=== PATIENT | male | born 1950 | race Caucasian/White ===

== ENCOUNTER 2019-08-11 17:20 | Inpatient (IN) | payer OTHER, SELFPAY ==
[2019-08-11] VITALS (15 sets, daily range): BP systolic 102–164; BP diastolic 68–99; PULSE 92–127; RESP 15–25; TEMP 36.4–36.7; O2SAT 93–98; BMI 22.6
--- NOTE | ~2019-08-11 | US_ITS ---
EXAMINATION: US right upper quadrant DATE: 08/12/2019 15:45 INDICATION: Upper abdominal pain, prior cholecystectomy, history of hepatitis C TECHNIQUE: Multiple grayscale and Doppler ultrasound images of the abdomen were obtained. COMPARISON: 03/12/2009 FINDINGS: The head and and body of the pancreas are normal. The pancreatic tail is obscured by bowel gas. The liver demonstrates mildly increased echotexture and echogenicity. No liver surface nodularit y is identified. Normal hepatopetal flow in the main portal vein. The gallbladder is surgically absen t. The normal common bile duct measures 4 mm. IMPRESSION: 1. No sonographic correlate for the patient's symptoms. 2. Sonographic findings consistent with history of hepatitis C. Reviewed, dictated and finalized at location A. T CLEANING MACHINE OPERATOR
--- NOTE | ~2019-08-11 | XR_ITS ---
EXAMINATION: XR chest 1V portable INDICATION: Shortness of breath TECHNIQUE: Portable AP chest at 1842 hours COMPARISON: 06/20/2019 FINDINGS: The lungs are hyperinflated. There is minimal airspace opacity overlying the right lung bas e. No pleural effusion or pneumothorax is identified. The cardiomediastinal silhouette is normal. IMPRESSION: 1. Minimal airspace opacity overlying the right lung base, consistent with atelectasis versus pneumon ia. Reviewed, dictated and finalized at location A. E ESCORT IMPRESSION: 1. Minimal airspace opacity overlying the right lung base, consistent with atel ectasis versus pneumonia.
--- NOTE | 2019-08-11 17:24 | ECG_ITS ---
Measurements Intervals [place] Rate: 110 P: 81 OK: 177 QRS: 83 QRSD: 90 T: 108 QT: 305 QTc: 413 Interpretive Statements SINUS TACHYCARDIA BASELINE ARTIFACT- I, II, III, AVR, AVL, AVF, V1-V6 ABNORMAL ECG Electronically Signed On 08-11-2019 19:43:25 FINISHING OPERATOR by Paramjit Mark D.O.
--- NOTE | 2019-08-11 17:33 | ED.SOB ---
HPI - SOB/Dyspnea General Chief Complaint: Shortness of Breath/Dyspnea Stated Complaint: sob Time Seen by Provider: 08/11/19 17:32 Source: patient and RN notes reviewed Mode of arrival: other Limitations: no limitations History of Present Illness HPI Narrative: Pt is a 69 y/o male who presents to the ED with c/o SOB that began two months ago, but has progressively worsened the past few weeks. Pt has a hx of COPD. He wears 3L of oxygen at home. Pt has Albuterol inhalers and nebulizer treatments at home. He notes that treatments help momentarily but does fully alleviate his sx. His last breathing treatment was at 1 PM today. Pt also reports intermittent dry cough and midsternal intermittent chest squeezing pain for the past few days. Pt's rolls mill operator is Dr. Zamora and Dr. Sousa. MD elicited complaint: shortness of breath Pertinent past history: COPD and diabetes Onset (ago): month(s) (2) Timing: constant Known history of: COPD and diabetes Associated symptoms: chest pain (intermittnet, midsternal, squeezing) and cough (dry) Treatment prior to arrival: none and other (breathing treatment at 1 PM) Related Data Home oxygen amount: 3 liters Home Medications Medication Instructions Recorded Confirmed finasteride 5 mg DAILY 07/23/19 07/23/19 fluticasone propion-salmeterol 232 puff INHALATION PRN 07/23/19 loratadine 10 mg PO DAILY 07/23/19 07/23/19 metformin 500 mg PO DAILY 07/23/19 07/23/19 mometasone-formoterol [Dulera] 200 INHALATION DAILY 07/23/19 nitrofurantoin monohyd/m-cryst 100 mg PO DAILY 07/23/19 07/23/19 Allergies Allergy/AdvReac Type Severity Reaction Status Date / Time tetracycline Allergy Unknown Verified 07/23/19 12:51 Review of Systems Review of Systems: All systems reviewed & are unremarkable except as noted in HPI and below Cardiovascular: Cardiovascular: Reports chest pain (intermittent midsternal, squeezing) Respiratory: Respiratory: Reports cough (dry) and Reports dyspnea PMFSH Past Medical History Medical History (Updated 08/11/19 @ 20:20 by Ignacia Arreguin MD) BPH (benign prostatic hyperplasia) COPD (chronic obstructive pulmonary disease) Diabetes mellitus, type II Emphysema lung Hepatitis C Hip fracture, right History of tobacco abuse Hx of skin malignancy removed on his nose Osteoarthritis Peptic ulcer disease Self-catheterizes urinary bladder Surgical History Surgical History (Updated 08/11/19 @ 18:30 by Clementina Ng) History of back surgery 1998 History of hip surgery right Hx of cholecystectomy Social History Social History Smoking status: Former smoker Gender identity (if verbalized by the patient): Male Exam Const: General: ill appearing other (mildly) Nutritional Appearance: well nourished Orientation/consciousness: patient oriented x3 Limitations: no limitations HENMT: Mouth: Yes lip normal Throat: other (throat normal) Resp: Effort & Inspection: pursed lip breathing, respiratory distress and tachypneic Auscultation: wheezes (tight) throughout and diminished lung sounds bilateral throughout Percussion: hyperresonance Cardio: Rate: tachycardic Rhythm: regular rhythm Heart sounds: Other heart sounds present (heart sounds distant) Peripheral pulses: dorsalis pedis present bilateral 2+ GI: GI Palp: Yes Soft to palpation and No Tenderness to palpation present (GI) Auscultation: normal bowel sounds Skin: General skin exam: normal color Neuro: General: patient oriented x3 Cognition (Neuro): normal cognition Speech: normal speech Extrem: General: normal to inspection, full ROM and no clubbing, cyanosis or edema Psych: Mental Status: mental status grossly normal Affect: normal affect Attitude: cooperative Course Course Emergency Course: Patient presents to the emergency department with complaint of worsening shortness of breath. Patient has history of oxygen dependent COPD. He also c
[2019-08-11 17:47] LABS: Basophils Absolute Auto 0.1 K/mm3 (0.0-0.1); Basophils Percent Auto 0.7 % (0.2-1.2); Eosinophils Absolute Auto 0.5 K/mm3 (0-0.3); Eosinophils Percent Auto 5.4 % (0-4.4); Hematocrit 45.7 % (42.0-52.0); Hemoglobin 14.3 g/dL (14.0-18.0); Immature Granulocyte Absolute 0.02 K/mm3 (0.00-0.031); Immature Granulocyte Percent A 0.2 % (0-0.5); Lymphocytes Absolute Auto 2.23 K/mm3 (0.9-3.2); Lymphocytes Percent Auto 25.8 % (18.3-44.2); Mean Corpuscular HGB Conc 31.3 g/dl (32-36); Mean Corpuscular Volume 89.4 fl (80-100); Monocytes Absolute Auto 0.9 K/mm3 (0.1-0.6); Monocytes Percent Auto 10.2 % (2.6-8.5); Neutrophils Percent Auto 57.7 % (45.5-73.1); Platelet Count Result 192 k/mm3 (150-375); Red Blood Count 5.11 M/mm3 (4.6-6.20); Red Cell Distribution Width 12.7 % (11.5-14.5); White Blood Count 8.6 K/mm3 (4.5-10.0)
[2019-08-11 17:59] LABS: Blood Urea Nitrogen 16 mg/dL (9-20); Calcium 8.9 mg/dL (8.4-10.2); Carbon Dioxide 37 mmol/L (22-30); Chloride 94 mmol/L (98-107); Estimated CRCL calculation 118 ml/min; Estimated Glomerular Filt Rate > 60; Glucose 149 mg/dL (75-110); Potassium 4.2 mmol/L (3.4-5.0); Sodium 137 mmol/L (137-145)
[2019-08-11] MEDS: ALBUTEROL SULFATE NEB 2.5 MG/0.5 ML INH 15 MG INHALATION (17:59)
[2019-08-11] MEDS: IPRATROPIUM BR 0.02% INH SOLN 0.5 MG/2.5 ML VIAL 1.5 MG INHALATION (17:59)
[2019-08-11 18:08] LABS: Prothrombin Time 12.4 Seconds (11.1-14.7)
[2019-08-11 18:09] LABS: Partial Thromboplastin Time 30.1 SECONDS (22.3-36.8)
[2019-08-11] MEDS: methylPREDNISolone SOD SUCC 125 MG VIAL IV PUSH (18:10)
[2019-08-11 18:28] LABS: Alveolar/Arterial O2 Gradient 56.6 mmHg; Base Excess ABG 7.4 mEq/l (+/-2.0); Carboxyhemoglobin 0.7 % THb (0-2.0); Fractional Inspired Oxygen 52 %; Methemoglobin ABG 0.3 %THb (0-1.5); Oxygen Content ABG 20.7 %vol (16.0-22.0); Oxygen Saturation ABG 99.4 % (95.0-100.0); PO2 ABG 227.8 mmHg (80.0-100.0); PO2 FiO2 Ratio Arterial Blood 4.38 %; Total Hemoglobin 14.7 g/dL (12.0-18.0); pH ABG 7.299 (7.350-7.450)
[2019-08-11 18:29] LABS: PCO2 ABG 77.1 mmHg (35.0-45.0); Site Drawn RIGHT BRACHIAL
[2019-08-11 18:30] LABS: Device OTHER DEVICE
[2019-08-11 18:37] LABS: NT Pro B Type Natriuretic Pept 45 PG/ML (5-100); Troponin I < 0.012 ng/mL (0.000-0.034)
--- NOTE | 2019-08-11 19:25 | PC.NURSE ---
assumed care of pt at this time. received report from malia zelaya.
[2019-08-11 21:20] LABS: Troponin I < 0.012 ng/mL (0.000-0.034)
--- NOTE | 2019-08-11 21:40 | ADMGEN ---
This patient, Alex Wallace, was admitted to IMU Room 207-01. Patient/family oriented to hospital policies and general routines including ID bracelet, bed and alarms, visiting hours, pain management, procedures, bathroom and other care routines, personal items, smoking policy, room service/diet, and visiting hours. Valuables list has been completed. Information on how to activate the Rapid Response Team has been discussed. Patient/Family are encouraged to report perceived risks to care and to ask questions if they do not understand what they are told or what they should do.
[2019-08-11] MEDS: methylPREDNISolone SOD SUCC 125 MG VIAL 60 MG IV PUSH (23:11)
--- NOTE | 2019-08-11 23:14 | PCRCNOTE ---
Window of time for administration has passed. See next scheduled administration.
--- NOTE | 2019-08-11 23:53 | PM.IMHP ---
H&P: HPI History of Present Illness Chief complaint: acute on chronic respiratory failure,copd exacerab Narrative: Alex Wallace is a 69 year old male admitted with SOB. Pt has history of Copd, BPH with intermittent urinary retention, DM, osteoporosis and chronic hepatic C. Pt uses nebulisers and oxygen 3 liters at home. Pt sees DR Zamora pulmology. Pt states for past few weeks has been increasingly sob using his nebulisers often without any relief. Pt has a dry cough denies any fever but does feel some mild chest discomfort like a squeezing sensation. Pt states he was also on a antibiotic for a UTI infection recently. Pt used to smoke in the past has a 30 pack year history. 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 ABG in ED shows ph 7.299, pco2 77.1 and po2 227. CXR shows Pneumonia. Pt currently on BIPAP and feels much better. Review of Systems Review of Systems: All systems reviewed & are unremarkable except as noted in HPI and below Constitutional: Constitutional: Reports fatigue, Reports lethargy and Reports malaise Cardiovascular: Cardiovascular: Reports dyspnea Comments: Squeezing chest pain/ chest discomfort Respiratory: Respiratory: Reports chest congestion, Reports cough, Reports dyspnea, Reports dyspnea on exertion and Reports wheezing Gastrointestinal: Gastrointestinal: Denies no additional gastrointestinal complaints Genitourinary: Genitourinary: Denies no additional male genitourinary complaints Musculoskeletal: Musculoskeletal: Denies no additional musculoskeletal complaints Neurologic: Denies system reviewed and no additional complaints, except as documented Psychiatric: Psychiatric: Denies no additional psychiatric complaints [facility] Past Medical History Medical History BPH (benign prostatic hyperplasia) COPD (chronic obstructive pulmonary disease) Diabetes mellitus, type II Emphysema lung Hepatitis C Hip fracture, right History of tobacco abuse Hx of skin malignancy removed on his nose Osteoarthritis Peptic ulcer disease Self-catheterizes urinary bladder Surgical History Surgical History History of back surgery 1998 History of hip surgery right Hx of cholecystectomy Family History Family History Sibling Carcinoma of colon Father Family history of lung cancer Mother Family history of emphysema Social History Social History Smoking packs per day: 1 Smoking cigarettes per day: 20.0 Smoking status: Former smoker Tobacco type: cigarettes Alcohol intake: never Substance use: never Gender identity (if verbalized by the patient): Male Spiritual care concerns: No Agree to blood products: Yes Meds Home Medications and Allergies Home Medications Medication Instructions Recorded Confirmed Type albuterol sulfate 2.5 mg INHALATION QID PRN #180 ml 07/04/19 08/11/19 Rx finasteride 5 mg DAILY 07/23/19 08/11/19 History loratadine 10 mg PO DAILY 07/23/19 08/11/19 History metformin 500 mg PO DAILY 07/23/19 08/11/19 History mometasone-formoterol [Dulera] 200 inh INHALATION DAILY 07/23/19 08/11/19 History albuterol sulfate 90 mcg/actuation 2 puff INHALATION Q4-6H PRN #8.5 gm 07/29/19 08/11/19 Rx aerosol inhaler magnesium hydroxide [Milk of 15 ml PO DAILY PRN 08/11/19 08/11/19 History Magnesia] pravastatin 20 mg PO DAILY 08/11/19 08/11/19 History tamsulosin 0.4 mg PO DAILY 08/11/19 08/11/19 History Allergies Allergy/AdvReac Type Severity Reaction Status Date / Time tetracycline Allergy Unknown Verified 07/23/19 12:51 Vital Signs Vital Signs - 24 hr 08/11/19 17:24 08/11/19 17:31 08/11/19 18:01 Temperature 36.4 C Pulse Rate 114 H 117 H 101 H Respiratory Rate 15 19 Blood Pressure 164/99 H
[2019-08-12] VITALS (22 sets, daily range): BP systolic 107–125; BP diastolic 57–89; PULSE 69–122; RESP 15–20; TEMP 36.6–36.9; O2SAT 92–99
[2019-08-12 00:15] LABS: Troponin I < 0.012 ng/mL (0.000-0.034)
[2019-08-12 00:54] LABS: Alveolar/Arterial O2 Gradient 80.2 mmHg; Base Excess ABG 6.5 mEq/l (+/-2.0); Fractional Inspired Oxygen 30 %; HCO3 ABG 33.4 mEq/l (22.0-26.0); Oxygen Content ABG 18.3 %vol (16.0-22.0); Oxygen Saturation ABG 92.3 % (95.0-100.0); Oxyhemoglobin 93.2 % THb (90.0-100.0); PCO2 ABG 57.6 mmHg (35.0-45.0); pH ABG 7.381 (7.350-7.450)
[2019-08-12 00:56] LABS: Device NON-INVASIVE VENT; Modified Allen's Test Pass; Site Drawn LEFT RADIAL
[2019-08-12 00:57] LABS: Non-Invasive Expiratory Pressure 5 CMH2O; Non-Invasive Inspiratory Pressure 15 CMH2O; Non-Invasive Vent Rate 10 /MIN
[2019-08-12] MEDS: ALBUTEROL SULFATE NEB 2.5 MG/0.5 ML INH 5 MG INHALATION ×4 (02:58→20:39)
[2019-08-12] MEDS: IPRATROPIUM BR 0.02% INH SOLN 0.5 MG/2.5 ML VIAL INHALATION ×4 (02:59→20:40)
[2019-08-12] MEDS: methylPREDNISolone SOD SUCC 125 MG VIAL 60 MG IV PUSH ×3 (05:30→21:00)
[2019-08-12 08:12] LABS: Base Excess ABG 5.8 mEq/l (+/-2.0); Fractional Inspired Oxygen 32 %; HCO3 ABG 32.1 mEq/l (22.0-26.0); Oxygen Content ABG 18.5 %vol (16.0-22.0); Oxygen Saturation ABG 92.9 % (95.0-100.0); Oxyhemoglobin 93.5 % THb (90.0-100.0); PCO2 ABG 53.3 mmHg (35.0-45.0); PO2 ABG 66.8 mmHg (80.0-100.0); PO2 FiO2 Ratio Arterial Blood 2.09 %; Total Hemoglobin 14.1 g/dL (12.0-18.0); pH ABG 7.398 (7.350-7.450)
[2019-08-12 08:13] LABS: Device NASAL CANNULA; Modified Allen's Test Pass; Site Drawn LEFT RADIAL
[2019-08-12] MEDS: FINASTERIDE 5 MG TABLET BY MOUTH (09:37)
[2019-08-12] MEDS: ENOXAPARIN 40 MG/0.4 ML SYRINGE SUB-Q (09:37)
[2019-08-12] MEDS: LORATADINE 10 MG TABLET PO (09:37)
[2019-08-12] MEDS: TAMSULOSIN HCL 0.4 MG CAPSULE PO (09:38)
[2019-08-12] MEDS: PRAVASTATIN SODIUM 20 MG TABLET PO (09:38)
[2019-08-12] MEDS: INSULIN ASPART (*BKC) 100 UNITS/ML SUB-Q ×2 (09:55→18:51)
[2019-08-12 10:40] LABS: Glucose Point of Care 298 (65-105)
[2019-08-12 14:51] LABS: Glucose Point of Care 183 (65-105)
[2019-08-12 14:51] LABS: Glucose Point of Care 227 (65-105)
[2019-08-12 17:22] LABS: Glucose Point of Care 259 (65-105)
[2019-08-12] MEDS: MAGNESIUM HYDROXIDE SUSP 30 ML UDC 15 ML PO (18:47)
[2019-08-12 20:35] LABS: Glucose Point of Care 292 (65-105)
--- NOTE | 2019-08-12 21:29 | PHAR ---
The patient's home med of AZO Cranberry verified. Unable to verify home meds of Probiotic and Vit D 50mcg due to no markings on capsules. Meds are in vitamin bottles.
--- NOTE | 2019-08-12 21:42 | PM.IMPN ---
Progress Note: A&P Assessment and Plan (1) Acute on chronic respiratory failure with hypoxia and hypercapnia: Code(s): J96.21 - Acute and chronic respiratory failure with hypoxia; J96.22 - Acute and chronic respiratory failure with hypercapnia Status: Acute Assessment and Plan: Pt uses 3 liters of oxygen and nebulisers at home, currently off BIPAP, rpt ABG tonite Continue albuterol and ipratropium breathing treatments and iv steroids, . (2) Community acquired pneumonia: Qualifiers: Laterality: right Lung location: lower lobe of lung Qualified Code(s): J18.9 - Pneumonia, unspecified organism Code(s): J18.9 - Pneumonia, unspecified organism Status: Acute Assessment and Plan: CXR shows pneumonia, pt started on IV rocephin and IV zithromax, BC are pending, pt does not have a productive cough so sputum cultures are not ordered. Wcc are nl. Chest pain appears pleuritic in nature resolved presently, troponin is negative, (3) COPD exacerbation: Code(s): J44.1 - Chronic obstructive pulmonary disease with (acute) exacerbation Status: Acute Assessment and Plan: Chronic history uses 3 liters of oxygen and nebulisers at home. No exacerbation in 3 years. (4) Diabetes mellitus, type II: Code(s): E11.9 - Type 2 diabetes mellitus without complications Status: Acute Assessment and Plan: Glucose is 149. Check Accuchecks, Correction with SSI, up today with steroids (5) BPH (benign prostatic hyperplasia): Code(s): N40.0 - Benign prostatic hyperplasia without lower urinary tract symptoms Status: Acute Assessment and Plan: Pt is on tamsulosin. (6) DVT prophylaxis: Code(s): Z29.9 - Encounter for prophylactic measures, unspecified Status: Acute Assessment and Plan: lovenox Subjective Date/time seen: 08/12/19 21:42 Interval history: date of visit 08/12. 69-year-old type 2 diabetic with COPD admitted with a COPD exacerbation and evidence of pneumonia on chest x-ray. Much better today and less short of breath. some discomfort on abdomen with movement Exam Narrative: Exam Narrative: blood pressure 120/62 pulse is 78 saturating 93% on 3 L nasal cannula afebrile pupils equal reactive to light lungs prolonged expiratory phase faint crackle left posterior base abdomen soft nontender bowel sounds normal active extremities without edema distal pulses 2 + neuro alert pleasant cooperative no focal deficits Objective Data Vital Signs Vital Signs: Vital Signs - 24 hr 08/11/19 21:53 08/11/19 23:54 08/12/19 00:00 Temperature 36.7 C Pulse Rate 98 92 95 Respiratory Rate 22 H 16 20 Blood Pressure 102/68 Pulse Oximetry 93 08/12/19 02:00 08/12/19 02:59 08/12/19 03:00 Temperature Pulse Rate 88 122 H 122 H Respiratory Rate 19 19 Blood Pressure Pulse Oximetry 95 08/12/19 03:10 08/12/19 04:00 08/12/19 06:00 Temperature 36.6 C Pulse Rate 103 H 83 87 Respiratory Rate 15 20 Blood Pressure 121/65 Pulse Oximetry 96 08/12/19 07:02 08/12/19 08:00 08/12/19 08:18 Temperature 36.6 C Pulse Rate 89 102 H 104 H Respiratory Rate 20 18 Blood Pressure 112/57 L Pulse Oximetry 97 08/12/19 08:28 08/12/19 10:00 08/12/19 12:00 Temperature 36.9 C Pulse Rate 107 H 97 107 H Respiratory Rate 18 Blood Pressure 107/89 Pulse Oximetry 99 08/12/19 14:00 08/12/19 14:31 08/12/19 14:42 Temperature Pulse Rate 71 101 H 103 H Respiratory Rate 18 18 Blood Pressure Pulse Oximetry 08/12/19 16:00 08/12/19 16:24 08/12/19 18:00 Temperature 36.7 C Pulse Rate 69 104 H 81 Respiratory Rate 18 Blood Pressure 119/62 Pulse Oximetry 92 08/12/19 20:00 08/12/19 20:40 08/12/19 20:51 Temperature 36.8 C Pulse Rate 99 89 93 Respiratory Rate 20 18 18 Blood Pressure 125/62 Pulse Oximetry 93 93 Intake/Output Intake/Output: Intake & Output 08/09/19 02/0
[2019-08-12] MEDS: INSULIN GLARGINE (*BKC) 100 UNITS/ML 10 UNITS SUB-Q (22:13)
[2019-08-13] VITALS (11 sets, daily range): BP systolic 102–125; BP diastolic 51–76; PULSE 78–99; RESP 16–20; TEMP 36.4–36.7; O2SAT 92–96
[2019-08-13] MEDS: ALBUTEROL SULFATE NEB 2.5 MG/0.5 ML INH 5 MG INHALATION ×4 (01:53→21:00)
[2019-08-13] MEDS: IPRATROPIUM BR 0.02% INH SOLN 0.5 MG/2.5 ML VIAL INHALATION ×4 (01:53→21:01)
[2019-08-13 05:13] LABS: Blood Urea Nitrogen 22 mg/dL (9-20); Calcium 9.1 mg/dL (8.4-10.2); Carbon Dioxide 34 mmol/L (22-30); Chloride 92 mmol/L (98-107); Estimated CRCL calculation 144 ml/min; Estimated Glomerular Filt Rate > 60; Glucose 202 mg/dL (75-110); Sodium 136 mmol/L (137-145)
[2019-08-13] MEDS: INSULIN ASPART (*BKC) 100 UNITS/ML SUB-Q ×3 (08:14→17:28)
[2019-08-13] MEDS: FINASTERIDE 5 MG TABLET BY MOUTH (08:15)
[2019-08-13] MEDS: PRAVASTATIN SODIUM 20 MG TABLET PO (08:15)
[2019-08-13] MEDS: LORATADINE 10 MG TABLET PO (08:15)
[2019-08-13] MEDS: TAMSULOSIN HCL 0.4 MG CAPSULE PO (08:15)
[2019-08-13] MEDS: ENOXAPARIN 40 MG/0.4 ML SYRINGE SUB-Q (08:15)
[2019-08-13 08:23] LABS: Glucose Point of Care 282 (65-105)
[2019-08-13] MEDS: predniSONE 20 MG TABLET 40 MG PO (09:35)
[2019-08-13 12:48] LABS: Glucose Point of Care 214 (65-105)
--- NOTE | 2019-08-13 17:00 | PM.IMPN ---
Progress Note: A&P Assessment and Plan (1) Acute on chronic respiratory failure with hypoxia and hypercapnia: Code(s): J96.21 - Acute and chronic respiratory failure with hypoxia; J96.22 - Acute and chronic respiratory failure with hypercapnia Status: Acute Assessment and Plan: Pt uses 3 liters of oxygen and nebulisers at home, currently off BIPAP, Continue albuterol and ipratropium breathing treatments and change to po steroids, . (2) Community acquired pneumonia: Qualifiers: Laterality: right Lung location: lower lobe of lung Qualified Code(s): J18.9 - Pneumonia, unspecified organism Code(s): J18.9 - Pneumonia, unspecified organism Status: Acute Assessment and Plan: CXR shows pneumonia, pt started on IV rocephin and IV zithromax, BC are negative, pt does not have a productive cough so sputum cultures are not ordered. Wcc are nl. Chest pain appears pleuritic in nature resolved presently, troponin is negative, (3) COPD exacerbation: Code(s): J44.1 - Chronic obstructive pulmonary disease with (acute) exacerbation Status: Acute Assessment and Plan: Chronic history uses 3 liters of oxygen and nebulisers at home. No exacerbation in 3 years. Updrafts, steroids, and antibiotics blood secondary to pneumonia (4) Diabetes mellitus, type II: Code(s): E11.9 - Type 2 diabetes mellitus without complications Status: Acute Assessment and Plan: Glucose is 2/2. Check Accuchecks, Correction with SSI, should improve with decreasing steroids (5) BPH (benign prostatic hyperplasia): Code(s): N40.0 - Benign prostatic hyperplasia without lower urinary tract symptoms Status: Acute Assessment and Plan: Pt is on tamsulosin. (6) DVT prophylaxis: Code(s): Z29.9 - Encounter for prophylactic measures, unspecified Status: Acute Assessment and Plan: lovenox Subjective Date/time seen: 08/13/19 17:00 Interval history: date of visit 08/13. 69-year-old type 2 diabetic with COPD admitted with a COPD exacerbation and evidence of pneumonia on chest x-ray. Much better each day and less short of breath. Exam Narrative: Exam Narrative: blood pressure 104/60 pulse is 90 saturating 93% on 3 L nasal cannula afebrile pupils equal reactive to light lungs prolonged expiratory phase faint crackle Right posterior base abdomen soft nontender bowel sounds normal active extremities without edema distal pulses 2 + neuro alert pleasant cooperative no focal deficits Objective Data Vital Signs Vital Signs: Vital Signs - 24 hr 08/12/19 18:00 08/12/19 20:00 08/12/19 20:40 Temperature 36.8 C Pulse Rate 81 99 89 Respiratory Rate 20 18 Blood Pressure 125/62 Pulse Oximetry 93 93 08/12/19 20:51 08/13/19 01:53 08/13/19 02:00 Temperature Pulse Rate 93 89 92 Respiratory Rate 18 16 18 Blood Pressure Pulse Oximetry 08/13/19 04:41 08/13/19 08:30 08/13/19 09:40 Temperature 36.7 C 36.4 C L Pulse Rate 78 95 90 Respiratory Rate 20 18 20 Blood Pressure 125/76 102/51 L Pulse Oximetry 96 93 92 08/13/19 09:49 08/13/19 12:30 08/13/19 14:37 Temperature 36.4 C Pulse Rate 93 99 88 Respiratory Rate 20 18 20 Blood Pressure 103/57 L Pulse Oximetry 93 Intake/Output Intake/Output: Intake & Output 08/10/19 08/11/19 08/12/19 08/13/19 23:59 23:59 23:59 23:59 Intake Total 250 1160 980 Output Total 1300 1450 Balance 250 -140 -470 Meds/Results Medications: Active Medications Generic Name Dose Route Start Last Admin Trade Name Freq PRN Reason Stop Dose Admin Albuterol 5 mg 08/11/19 20:00 08/13/19 14:36 Albuterol Sulf Neb 2.5mg/0.5ml INHALATION 5 mg Q6HRT [facility] Administration Dextrose 12.5 gm 08/12/19 00:26 Dextrose 50% Syringe IV PUSH PRN PRN Hypoglycemia Protocol Enoxaparin Sodium 40 mg 08/12/19 09:00 08/13/19 08:15 Lovenox SUB-Q 40 mg DAILY [facility]
[2019-08-13 17:14] LABS: Glucose Point of Care 233 (65-105)
[2019-08-13 21:11] LABS: Glucose Point of Care 286 (65-105)
[2019-08-13] MEDS: MAGNESIUM HYDROXIDE SUSP 30 ML UDC 15 ML PO (22:43)
[2019-08-14] MEDS: ALBUTEROL SULFATE NEB 2.5 MG/0.5 ML INH 5 MG INHALATION ×2 (03:06→08:45)
[2019-08-14] MEDS: IPRATROPIUM BR 0.02% INH SOLN 0.5 MG/2.5 ML VIAL INHALATION ×2 (03:06→08:45)
[2019-08-14 03:08] VITALS: PULSE 89; RESP 16
[2019-08-14 04:00] VITALS: BP 118/65; PULSE 92; RESP 20; TEMP 36.7; O2SAT 95
[2019-08-14 05:30] LABS: Blood Urea Nitrogen 21 mg/dL (9-20); Calcium 8.8 mg/dL (8.4-10.2); Carbon Dioxide 35 mmol/L (22-30); Chloride 95 mmol/L (98-107); Estimated CRCL calculation 144 ml/min; Estimated Glomerular Filt Rate > 60; Glucose 137 mg/dL (75-110); Potassium 3.6 mmol/L (3.4-5.0); Sodium 139 mmol/L (137-145)
[2019-08-14 08:27] VITALS: BP 112/70; PULSE 83; RESP 18; TEMP 35.8; O2SAT 98
[2019-08-14 08:45] VITALS: PULSE 88; RESP 16; O2SAT 93
[2019-08-14] MEDS: FINASTERIDE 5 MG TABLET BY MOUTH (08:45)
[2019-08-14] MEDS: TAMSULOSIN HCL 0.4 MG CAPSULE PO (08:45)
[2019-08-14] MEDS: PRAVASTATIN SODIUM 20 MG TABLET PO (08:45)
[2019-08-14] MEDS: LORATADINE 10 MG TABLET PO (08:46)
[2019-08-14] MEDS: ENOXAPARIN 40 MG/0.4 ML SYRINGE SUB-Q (08:46)
[2019-08-14 08:55] VITALS: PULSE 92; RESP 16
[2019-08-14] MEDS: predniSONE 20 MG TABLET PO (09:35)
[2019-08-14 12:20] LABS: Glucose Point of Care 185 (65-105)
--- NOTE | 2019-08-16 17:02 | PM.DS ---
DS: Diagnosis Admitting Diagnosis Admitting Diagnosis: Acute and chronic respiratory failure with hypoxia Discharge Diagnosis (1) Acute on chronic respiratory failure with hypoxia and hypercapnia: Code(s): J96.21 - Acute and chronic respiratory failure with hypoxia; J96.22 - Acute and chronic respiratory failure with hypercapnia Status: Acute Assessment and Plan: Pt uses 3 liters of oxygen and nebulisers at home, , continued to improve with the above treatment of corticosteroids antibiotics. Pneumonia thought to be the precipitating factor (2) Community acquired pneumonia: Qualifiers: Laterality: right Lung location: lower lobe of lung Qualified Code(s): J18.9 - Pneumonia, unspecified organism Code(s): J18.9 - Pneumonia, unspecified organism Status: Acute Assessment and Plan: CXR shows pneumonia right lower lobe, pt is treated with IV rocephin and IV zithromax and discharge home on levofloxacin 500 daily for 3 days for total of 7 days treatment, BC were negative, pt did not have a productive cough so sputum cultures were not ordered. Wbc were nl. Chest pain was pleuritic in nature resolved , troponin were negative, (3) COPD exacerbation: Code(s): J44.1 - Chronic obstructive pulmonary disease with (acute) exacerbation Status: Acute Assessment and Plan: Chronic history uses 3 liters of oxygen and nebulisers at home. No exacerbation in 3 years. Updrafts, steroids, and antibiotics all secondary to pneumonia Rapid prednisone taper and none on discharge (4) Diabetes mellitus, type II: Code(s): E11.9 - Type 2 diabetes mellitus without complications Status: Acute Assessment and Plan: . , Correction with SSI while here, off steroids at discharge and resume his metformin (5) BPH (benign prostatic hyperplasia): Code(s): N40.0 - Benign prostatic hyperplasia without lower urinary tract symptoms Status: Acute Assessment and Plan: Pt is on tamsulosin. DS: Summary Time Spent with Patient Time attestation: Total time spent providing and/or coordinating discharge services: 35 minutes Exam Narrative: Exam Narrative: Condition on discharge Blood pressure 112/70 pulse is 82 saturating 94% on 3 L nasal cannula Lungs prolonged expiratory phase no wheezing and hear no crackles day of discharge in right lower lobe CV regular rate rhythm Extremities without edema He was ambulating without assistance taking a diet well and feeling much better DS: Data Data Completed and Pending Labs on day of discharge: Preliminary micro results at discharge 08/11/19 19:44 Blood Culture - Preliminary Blood 08/11/19 19:44 Blood Culture - Preliminary Blood Discharge Plan Discharge Attending physician on discharge: Julio Hoskins Discharging Clinician: Julio Hoskins Patient Disposition: Home, Self-Care Activity: as tolerated Diet: diabetic and low cholesterol Patient Instructions: Antibiotic Form, Using Oxygen at Home (DC), COPD (Chronic Obstructive Pulmonary Disease) (DC), Chronic Respiratory Failure (DC) Stand Alone Forms: General Discharge Information Follow-up/Referrals: Sanaz Zamora MD [Physician] - 2 Weeks [place]annon,Jarret Anderson MD [Primary Care Provider] - 3 Weeks Discharge Medications: New levofloxacin [Levaquin] 500 mg tablet 500 mg PO DAILY Qty: 3 RF: 0 Continued metformin 500 mg tablet 500 mg PO DAILY RF: 0 finasteride 5 mg tablet 5 mg DAILY RF: 0 loratadine 10 mg tablet 10 mg PO DAILY RF: 0 Dulera 200-5 mcg/actuation HFA aerosol inhaler 200 inh INHALATION DAILY RF: 0 magnesium hydroxide [Milk of Magnesia] 400 mg/5 mL Suspension 15 ml PO DAILY PRN (Reason: Constipation) RF: 0 tamsulosin 0.4 mg Capsule 0.4 mg PO DAILY RF: 0 pravastatin 20 mg Tablet 20 mg PO DAILY RF: 0 cholecalciferol (vitamin D3) [Vitamin D3] 50 mcg (2,000 unit) Tablet
== END 2019-08-14 14:02 | disposition home or self-care (01) | DRG 139 ==
LOC: ANHED 20:20 → ANHIMU 08-12 11:57
PROVIDERS: Emergency Medicine; Family Medicine; Admitting Provider Internal Medicine; Emergency Provider Emergency Medicine; PCP Family Medicine; Visit Provider Internal Medicine
DX: J18.9 Pneumonia, unspecified organism (principal); J96.21 Acute and chronic respiratory failure with hypoxia; J96.22 Acute and chronic respiratory failure with hypercapnia; J43.9 Emphysema, unspecified; E11.9 Type 2 diabetes mellitus without complications; N40.1 Benign prostatic hyperplasia with lower urinary tract symptoms; R33.9 Retention of urine, unspecified; M19.90 Unspecified osteoarthritis, unspecified site; Z99.81 Dependence on supplemental oxygen; Z87.11 Personal history of peptic ulcer disease; Z85.828 Personal history of other malignant neoplasm of skin; Z87.891 Personal history of nicotine dependence; Z86.19 Personal history of other infectious and parasitic diseases; Z90.49 Acquired absence of other specified parts of digestive tract
CPT/HCPCS: 36415; 36600; 71045; 76705; 80048; 82375; 82805; 83050; 83880; 84484; 85025; 85610; 85730; 87040; 87804; 93005; 94002; 94640; 94660; 96365; 96367; 96375; 97110; 97116; 97161; 97165; 99291; A9270; J0456; J0696; J1650; J1815; J2930; J7512

== ENCOUNTER 2019-12-24 12:06 | Emergency (ER) | payer OTHER, SELFPAY ==
[2019-12-24 12:19] VITALS: BP 125/82; PULSE 109; RESP 20; TEMP 36.2; O2SAT 95
--- NOTE | 2019-12-24 12:21 | ED.GENADULT ---
HPI - General Adult General Chief complaint: Urogenital-Male Stated complaint: possible uti Source: patient and RN notes reviewed Mode of arrival: wheelchair Limitations: no limitations History of Present Illness HPI narrative: This is a 69 years old male presented office for evaluation of possible UTI. He is self caths due to BPH. A month ago he began with urinary pain every time he self cath and he finally made himself coming in. Symptom is reminiscent his previous UTI minus the fever. He self caths about twice a day. 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 Related Data Home Medications Medication Instructions Recorded Confirmed albuterol sulfate 0.63 mg INHALATION QID 12/24/19 12/24/19 albuterol sulfate 1 inh INHALATION QID 12/24/19 12/24/19 finasteride 5 mg PO DAILY 12/24/19 12/24/19 fluticasone propionate [Flonase 1 spray INTRANASAL DAILY 12/24/19 12/24/19 Allergy Relief] ipratropium-albuterol 3 ml INHALATION QID 12/24/19 12/24/19 loratadine [Claritin] 10 mg PO DAILY 12/24/19 12/24/19 metformin [Glucophage] 500 mg PO BID 12/24/19 12/24/19 rosuvastatin [Crestor] 5 mg PO DAILY 12/24/19 12/24/19 tamsulosin [Flomax] 0.4 mg PO DAILY 12/24/19 12/24/19 Allergies Allergy/AdvReac Type Severity Reaction Status Date / Time tetracycline Allergy Unknown Unknown Verified 12/24/19 12:34 Review of Systems Review of Systems: Narrative: CONSTITUTIONAL: Denies fever or feeling ill CARDIOVASCULAR: Denies chest pain, palpitation RESPIRATORY: Reports chronic dyspnea and oxygen depends GASTROINTESTINAL: Denies abdominal pain, nausea, vomiting GENITOURINARY: Denies penile discharge SKIN: Denies rash MUSCULOSKELETAL: Denies acute joints pain NEUROLOGIC: Denies lightheaded/dizziness All other systems reviewed are negative, except as documented in HPI. REPLACED BY [facility] Past Medical History Medical History (Updated 12/24/19 @ 12:43 by TOM Rodriguez) Body mass index (bmi) 25.0-25.9, adult (02/13/18) BPH (benign prostatic hyperplasia) Chronic respiratory failure COPD (chronic obstructive pulmonary disease) Diabetes mellitus, type II Emphysema lung Hepatitis C Hip fracture, right History of tobacco abuse Hx of skin malignancy removed on his nose Nocturnal hypoxemia Osteoarthritis Peptic ulcer disease Self-catheterizes urinary bladder Surgical History Surgical History History of back surgery 1998 History of hip surgery right Hx of cholecystectomy Social History Social History (Updated 08/29/19 @ 11:05 by Tyler Corey [facility]) Smoking packs per day: 1 Smoking cigarettes per day: 20.0 Years smoked: 30 Smoking pack-years: 30.00 Smoking status: Former smoker Tobacco type: cigarettes Alcohol intake: never Substance use: never Gender identity (if verbalized by the patient): Male Spiritual care concerns: No Agree to blood products: Yes Exam Narrative: Exam Narrative: GENERAL: This is a well-developed patient, chronically ill, in no apparent distress. NOSE: External nose normal with no obvious nasal discharge, nasal cannula noted CARDIOVASCULAR: Regular rate and rhythm without murmurs, gallops, or rubs. RESPIRATORY: Clear to auscultation. Breath sounds equal bilaterally. No wheezes, rales, or rhonchi. GASTROINTESTINAL: Abdomen soft, non-tender, nondistended. Bowel sounds are active. No hepato-splenomegaly, or palpable masses. No guarding. SKIN: warm, intact with no suspicious lesions or rash, good texture and turgor. NEURO: awake, alert, and oriented to person, place and time. There were no obvious focal neurologic abnormalities. Steady gait [place] Coma Scale Eye Opening: Spontaneous 4 [place] Coma Scale Motor: Obeys Commands 6 [place] Coma Scale Verbal: Oriented 5 Medical Decision Making MDM Narrative Medical decision making narrative: Since urine dipstick appears clean without obvious sign of infection; I given patient the op
== END 2019-12-24 12:45 | disposition home or self-care (01) ==
PROVIDERS: Emergency Provider Nurse Practitioner
DX: N40.1 Benign prostatic hyperplasia with lower urinary tract symptoms (principal); R39.15 Urgency of urination; J43.9 Emphysema, unspecified; Z87.891 Personal history of nicotine dependence; Z99.81 Dependence on supplemental oxygen; J96.10 Chronic respiratory failure, unspecified whether with hypoxia or hypercapnia; E11.9 Type 2 diabetes mellitus without complications; Z85.828 Personal history of other malignant neoplasm of skin; M19.90 Unspecified osteoarthritis, unspecified site; Z87.11 Personal history of peptic ulcer disease; Z79.84 Long term (current) use of oral hypoglycemic drugs
CPT/HCPCS: 81003; 87077; 87086; 87088; 87186; 99213; G0463

== ENCOUNTER 2020-12-17 17:06 | IRF | payer OTHER, SELFPAY ==
[2020-12-17 17:08] LABS: Glucose Point of Care 145 mg/dl (65-105)
--- NOTE | 2020-12-17 17:10 | ADMGEN ---
Patient arrived via personal vehicle with oxygen in place at 1600. This patient, Alex Wallace, was admitted to [facility] Room 226-02. Patient/family oriented to hospital policies and general routines including ID bracelet, bed and alarms, visiting hours, pain management, procedures, bathroom and other care routines, personal items, smoking policy, room service/diet, and visiting hours. Information on how to activate the Rapid Response Team has been discussed. Patient/Family are encouraged to report perceived risks to care and to ask questions if they do not understand what they are told or what they should do.
--- NOTE | 2020-12-17 17:22 | WPDREHABHP ---
H&P: HPI History of Present Illness Date/Time: 12/17/20 17:22 Chief Complaint: Left hip fracture Narrative: HISTORY OF PRESENT ILLNESS: The patient's primary rehab impairment category is 0 7 orthopedic lower extremity fracture The etiologic diagnosis is transverse angulated and displaced subcapital left femoral neck fracture I saw this patient [id number] on 12/17/2020 The patient is a 70-year-old male that presented to [facility] on 12/09/2020 after experiencing a ground level fall. Past medical history significant for BPH, COPD, type 2 diabetes, GERD, hepatitis C, hypotonic bladder, chronic respiratory failure with home O2 use, history of prolonged prostatitis. Patient reports his walking out of his nieces and tripped over a rug and fell landing on his left hip. Patient did not strike his head. Imaging in the ER revealed transverse angulated and displaced subcapital left femoral neck fracture. EKG showed normal sinus rhythm. Orthopedic surgery was consulted and patient underwent a left hemiarthroplasty by Dr. Michael lilly on 12/11/2020. He is weight-bearing as tolerated. He has left anterior hip precautions. Postoperatively patient experienced acute postop pain, acute blood loss anemia, increasing need of inhalers, congestion, hyponatremia, and new onset serosanguineous drainage. Patient was given IV Rocephin for the drainage and now switched over to p.o. Cefdinir 300 mg b.i.d. times 10 days. Patient is to stop taking on 12/27/2020. Postop pain is being treated with oral analgesics, his anemia is stable. patient is able to cath himself independently. Patient remains on home O2 patient requires 3 L of O2 during the daytime and 2 L at night. Patient requires Mucinex for congestion with favorable results. Hyponatremia is being repleted. Patient will be will be continuing on Lovenox for DVT prophylaxis for at least 21 days. COVID the patient has not traveled nor has anyone who has had contact with him to any COVID hot spots. Patient S not having close personal contact with anyone with COVID. Patient does not have a fever. Patient does experience respiratory illness which is chronic. A COVID test was done and was negative on 12/17/2020. Therapy was initiated at the acute care facility and the patient transferred to us from [facility] on 12/17/2020 FALLS OR SURGERIES: the patient has had major surgery last 100 days consisting of a left total hip replacement. Patient has had falls in the past with injury. PRIOR LEVEL OF FUNCTION: Eating was [INDEPENDENT] Oral Care was [INDEPENDENT] Toileting Hygiene was [INDEPENDENT] Shower/Bathing was [INDEPENDENT] Upper Body Dressing was [INDEPENDENT] Lower Body Dressing was [INDEPENDENT] Donning/[place] Footwear was [INDEPENDENT] Rolling Left and Right was [INDEPENDENT] Sit to Lying was [INDEPENDENT] Lying to Sitting was [INDEPENDENT] Sit to Stand was [INDEPENDENT] Bed to Chair Transfers was [INDEPENDENT] Toilet Transfers was [INDEPENDENT] Walking was [INDEPENDENT] [>500 feet] with [NO DEVICE] Wheelchair Mobility was [NOT APPLICABLE PRIOR TO ADMISSION] Stairs were [INDEPENDENT] CURRENT LEVEL OF FUNCTION: Eating was [SET UP ONLY] Oral Care was Supervision Toileting Hygiene was substantial to max assist Shower/Bathing was substantial to max assist Upper Body Dressing was supervision Lower Body Dressing was partial are mod assist Donning/[place] Footwear was substantial to max assist Rolling Left and Right was partial to moderate assist Sit to Lying was partial to mod assist Lying to Sitting was partial to mod assist Sit to Stand was partial to mod assist Bed to Chair Transfers were partial to mod assist Toilet Transfers were partial to mod assist Walking was 30 ft with partial to moderate assistance using a roller walker. Wheelchair Mobility was Not tested Stairs were not tested GOALS: Our therapists will evaluate the pa
[2020-12-17 18:26] VITALS: O2SAT 95
[2020-12-17] MEDS: oxyCODONE/ACETAMINOPHEN (*CRX) 5-325 MG TABLET 2 TABLET PO (20:07)
[2020-12-17] MEDS: ROSUVASTATIN 5 MG TABLET PO (20:08)
[2020-12-17] MEDS: CEFDINIR 300 MG CAPSULE PO (20:08)
[2020-12-17 21:01] VITALS: O2SAT 96
[2020-12-17 22:00] VITALS: BP 117/62; PULSE 101; RESP 18; TEMP 37.1; O2SAT 90
[2020-12-18] MEDS: oxyCODONE/ACETAMINOPHEN (*CRX) 5-325 MG TABLET 2 TABLET PO ×5 (01:03→23:45)
[2020-12-18 05:24] LABS: Basophils Absolute Auto 0.1 K/mm3 (0.0-0.1); Basophils Percent Auto 0.6 % (0.2-1.2); Eosinophils Absolute Auto 0.3 K/mm3 (0-0.3); Eosinophils Percent Auto 3.8 % (0-4.4); Hematocrit 31.1 % (42.0-52.0); Immature Granulocyte Absolute 0.09 K/mm3 (0.00-0.031); Immature Granulocyte Percent A 1.1 % (0-0.5); Lymphocytes Absolute Auto 1.08 K/mm3 (0.9-3.2); Lymphocytes Percent Auto 13.3 % (18.3-44.2); Mean Corpuscular HGB Conc 32.2 g/dl (32-36); Mean Corpuscular Hemoglobin 29.1 pg (26-34); Mean Corpuscular Volume 90.4 fl (80-100); Mean Platelet Volume 9.3 fl (7.4-10.4); Monocytes Absolute Auto 1.1 K/mm3 (0.1-0.6); Monocytes Percent Auto 12.9 % (2.6-8.5); Neutrophils Absolute Auto 5.5 K/mm3 (1.3-6.7); Neutrophils Percent Auto 68.3 % (45.5-73.1); Platelet Count Result 223 k/mm3 (150-375); Red Blood Count 3.44 M/mm3 (4.6-6.20); Red Cell Distribution Width 13.1 % (11.5-14.5); White Blood Count 8.1 K/mm3 (4.5-10.0)
[2020-12-18 05:30] LABS: Hemoglobin A1C 6.1 % (<5.7)
[2020-12-18 05:44] LABS: Alanine Aminotransferase 49 U/L (4-50); Albumin Level 2.8 g/dL (3.5-5.1); Alkaline Phosphatase 70 U/L (38-126); Anion Gap 4 mmol/L (8-16); Aspartate Amino Transferase 49 U/L (17-59); Bilirubin,Total 0.4 mg/dL (0.2-1.3); Blood Urea Nitrogen 12 mg/dL (9-20); Calcium 8.4 mg/dL (8.4-10.2); Carbon Dioxide 34 mmol/L (22-30); Chloride 99 mmol/L (98-107); Estimated Glomerular Filt Rate > 60; Glucose 155 mg/dL (75-110); Sodium 137 mmol/L (137-145)
[2020-12-18 05:46] VITALS: BP 109/71; PULSE 93; RESP 16; TEMP 36.3; O2SAT 95
[2020-12-18 08:00] VITALS: PULSE 93; RESP 16; O2SAT 95
--- NOTE | 2020-12-18 08:24 | WPDNEURORHBP ---
Subjective Date/time seen: 12/18/20 08:24 Interval history: The etiologic diagnosis is transverse angulated and displaced subcapital left femoral neck fracture. The patient is a 70-year-old male that presented to [facility] on 12/09/2020 after experiencing a ground level fall. Past medical history significant for BPH, COPD, type 2 diabetes, GERD, hepatitis C, hypotonic bladder, chronic respiratory failure with home O2 use, history of prolonged prostatitis. Patient reports his walking out of his nieces and tripped over a rug and fell landing on his left hip. Patient did not strike his head. Imaging in the ER revealed transverse angulated and displaced subcapital left femoral neck fracture. EKG showed normal sinus rhythm. Orthopedic surgery was consulted and patient underwent a left hemiarthroplasty by Dr. Goodson on 12/11/2020. He is weight-bearing as tolerated. He has left anterior hip precautions. Postoperatively patient experienced acute postop pain, acute blood loss anemia, increasing need of inhalers, congestion, hyponatremia, and new onset serosanguineous drainage. Patient was given IV Rocephin for the drainage and now switched over to p.o. Cefdinir 300 mg b.i.d. times 10 days. Patient is to stop taking on 12/27/2020. Postop pain is being treated with oral analgesics, his anemia is stable. patient is able to cath himself independently. Patient remains on home O2 patient requires 3 L of O2 during the daytime and 2 L at night. Patient requires Mucinex for congestion with favorable results. Hyponatremia is being repleted. Patient will be will be continuing on Lovenox for DVT prophylaxis for at least 21 days. 12/18/2020. patient admits to chronic constipation and has not had a bowel movement in a few days. Patient will be offered Dulcolax suppository and enema. Aggressive bowel program will begin. Patient admits to discomfort of the left hip. Mucinex was not present on transfer medications will add to current med list. Review of Systems Constitutional: Constitutional: Reports no additional constitutional complaints Cardiovascular: Cardiovascular: Reports no additional cardiovascular complaints, Reports dyspnea and Reports dyspnea on exertion Respiratory: Respiratory: Reports chest congestion, Reports cough, Reports dyspnea and Reports dyspnea on exertion Gastrointestinal: Gastrointestinal: Reports constipation (chronic) Exam Narrative: Exam Narrative: Head is normocephalic. Extraocular muscles are intact. Pupils are equal reactive light and accommodation. Speech is fluent. Neck is supple. Heart rate and rhythm is regular. Lungs sounds are congested and decreased in the bases. Abdomen is obese with positive bowel sounds. Bruising is noted to the stomach from injection sites. Left hip incision shows serous drainage. Drainage is more clear and less in volume. Bilateral upper extremity strength are 4-5 left lower extremity strength is essentially 2/5 and distally 3/5 right lower extremity strength is 4- out of 5 Objective Data Vital Signs Vital Signs: Vital Signs - 24 hr 12/17/20 18:26 12/17/20 21:01 12/17/20 22:00 Temperature 37.1 C Pulse Rate 101 H Respiratory Rate 18 Blood Pressure 117/62 Pulse Oximetry 95 96 90 12/18/20 05:46 Temperature 36.3 C L Pulse Rate 93 Respiratory Rate 16 Blood Pressure 109/71 Pulse Oximetry 95 Intake/Output Intake/Output: Intake & Output 12/15/20 12/16/20 12/17/20 12/18/20 23:59 23:59 23:59 23:59 Intake Total 480 Balance 480 Meds/Results Medications: Active Medications Generic Name Dose Route Start Last Admin Trade Name Freq PRN Reason Stop Dose Admin Albuterol 2.5 mg 12/17/20 17:49 Albuterol Sulfate Neb 2.5 Mg/0.5 Ml Inh INHALATION Q4H PRN shortness of breath or wheezing Albuterol 1 puff 12/17/20 17:42 Albuterol Sulfate (*Sp) Aerosol 1 Puff INHALATION Q4-6H PRN shortness of b
[2020-12-18] MEDS: metFORMIN HCL 500 MG TABLET PO ×2 (09:43→16:51)
[2020-12-18] MEDS: CEFDINIR 300 MG CAPSULE PO ×2 (09:43→20:14)
[2020-12-18] MEDS: FINASTERIDE 5 MG TABLET PO (09:43)
[2020-12-18] MEDS: ASPIRIN 81 MG ENTERIC TABLET PO (09:43)
[2020-12-18] MEDS: LORATADINE 10 MG TABLET PO (09:43)
[2020-12-18] MEDS: TAMSULOSIN HCL 0.4 MG CAPSULE PO (09:43)
[2020-12-18] MEDS: ENOXAPARIN 40 MG/0.4 ML SYRINGE SUB-Q (09:43)
[2020-12-18] MEDS: FLUTICASONE PROPIONATE 0.05% NA SPR 16 GM BTL (*BKC) 1 SPRAY NASAL ×2 (11:24→20:14)
[2020-12-18] MEDS: guaiFENesin 12 HR 600 MG TABCR 1200 MG PO ×2 (11:25→20:14)
[2020-12-18] MEDS: MAGNESIUM HYDROXIDE SUSP 30 ML UDC 15 ML PO (11:26)
[2020-12-18 11:49] LABS: Glucose Point of Care 175 mg/dl (65-105)
[2020-12-18 11:49] LABS: Glucose Point of Care 160 mg/dl (65-105)
[2020-12-18] MEDS: BISACODYL 10 MG SUPPOSITORY RECTAL ×2 (12:11→14:03)
[2020-12-18 14:00] VITALS: BP 114/62; PULSE 102; RESP 16; TEMP 36.2; O2SAT 96
--- NOTE | 2020-12-18 14:59 | PM.IMHP ---
H&P: HPI History of Present Illness Date/Time: 12/18/20 14:59 Chief Complaint: Rehab and COPD Narrative: Patient is a 70 year old male with a past medical history of BPH, Hep C, COPD, DM2, Hypotonic bladder, chronic respiratory failure with home O2 that was sent to the rehab facility for rehab after fracturing his left femoral neck. Patient stated that this happened about a week or so ago and that his hip was repaired last Sunday at [facility] [place]. He did say that he was feeling ok today, but all in all not the best. He said that today is the first day that everything is starting and that he knows he is going to have some aches and pains. He also mentioned that he is worried about his COPD and that he wears 3LNC with activity and and 2L at night. While at rest he does not wear anything. He is also concerned about the medications that he is taking along with the interaction of them together. He is currently sitting in the wheel chair, awaiting someone to bring him a suppository. He said that he knows he is constipated because of the pain medications. He also stated that he has BPH and a hypotonic bladder that he straight caths himself before bed. Throughout the day he is able to urinate. He stated that it is still rough but he makes it work. She denies chest pain, shortness of breath, nausea, vomiting, diarrhea, constipation, numbness tingling, sweats, chills. Review of Systems Review of Systems: All systems reviewed & are unremarkable except as noted in HPI and below PMFSH Past Medical History Medical History Basal cell adenoma Body mass index (bmi) 25.0-25.9, adult (02/13/18) BPH (benign prostatic hyperplasia) Chronic respiratory failure COPD (chronic obstructive pulmonary disease) Diabetes mellitus, type II Emphysema lung Hepatitis C Hip fracture, right History of hepatitis C History of pneumonia History of tobacco abuse Hx of skin malignancy removed on his nose Hyperlipidemia Nocturnal hypoxemia Osteoarthritis Peptic ulcer disease Self-catheterizes urinary bladder Surgical History Surgical History History of back surgery 1998 History of hip surgery right History of total right hip replacement Hx of cholecystectomy Family History Family History Sibling Carcinoma of colon Father Family history of lung cancer Mother Family history of emphysema Social History Social History Social History: patient lives alone in a mobile home with 5 steps to enter. He has a 2 wheeled walker, straight cane, and manual wheelchair. Patient still drives and is independent with bathing and dressing. Patient's sister and [id number] lives nearby and can provide assistance. Patient has elected his sister Sruthi Jacobs at [phone] as his surrogate and wishes to be a full code. He also stated that he has three dogs and his sister lives next door to him. Smoking packs per day: 1 Smoking cigarettes per day: 20.0 Years smoked: 30 Smoking pack-years: 30.00 Smoking status: Former smoker Tobacco type: cigarettes Second hand tobacco smoke exposure: No Alcohol intake: never Substance use: never Substance use type: does not use Living arrangements: alone Additional living arrangements comments: His sister lives next door. Occupation/Education: retired Gender identity (if verbalized by the patient): Male Spiritual care concerns: No Agree to blood products: Yes Meds Home Medications and Allergies Home Medications Medication Instructions Recorded Confirmed Type finasteride 5 mg PO DAILY 12/24/19 12/17/20 History fluticasone propionate [Flonase 1 spray INTRANASAL Q6H PRN 12/24/19 12/17/20 History Allergy Relief] loratadine [Claritin] 10 m
--- NOTE | 2020-12-18 15:03 | PC.NURSE ---
Patient had large results from suppository that was given to him.
[2020-12-18 16:49] LABS: Glucose Point of Care 152 mg/dl (65-105)
[2020-12-18 20:00] VITALS: O2SAT 92
[2020-12-18] MEDS: SENNA/DOCUSATE SODIUM TABLET 1 TAB PO (20:14)
[2020-12-18] MEDS: ROSUVASTATIN 5 MG TABLET PO (20:14)
[2020-12-18 22:00] VITALS: BP 117/72; PULSE 95; RESP 18; TEMP 36.1; O2SAT 92
[2020-12-19 05:45] LABS: Glucose Point of Care 186 mg/dl (65-105)
[2020-12-19 05:51] VITALS: BP 102/64; PULSE 78; RESP 16; TEMP 36.3; O2SAT 96
[2020-12-19] MEDS: oxyCODONE/ACETAMINOPHEN (*CRX) 5-325 MG TABLET 2 TABLET PO (06:58)
[2020-12-19 07:02] LABS: Glucose Point of Care 156 mg/dl (65-105)
[2020-12-19] MEDS: ENOXAPARIN 40 MG/0.4 ML SYRINGE SUB-Q (09:01)
[2020-12-19] MEDS: FLUTICASONE PROPIONATE 0.05% NA SPR 16 GM BTL (*BKC) 1 SPRAY NASAL ×2 (09:01→20:32)
[2020-12-19] MEDS: ASPIRIN 81 MG ENTERIC TABLET PO (09:01)
[2020-12-19] MEDS: polyethylene glycoL 3350 17 GM POWD.PACK PO (09:01)
[2020-12-19] MEDS: guaiFENesin 12 HR 600 MG TABCR 1200 MG PO ×2 (09:01→20:32)
[2020-12-19] MEDS: metFORMIN HCL 500 MG TABLET PO ×2 (09:01→17:20)
[2020-12-19] MEDS: FINASTERIDE 5 MG TABLET PO (09:02)
[2020-12-19] MEDS: CEFDINIR 300 MG CAPSULE PO ×2 (09:02→20:32)
[2020-12-19] MEDS: LORATADINE 10 MG TABLET PO (09:02)
[2020-12-19] MEDS: TAMSULOSIN HCL 0.4 MG CAPSULE PO (09:02)
[2020-12-19] MEDS: MAGNESIUM HYDROXIDE SUSP 30 ML UDC 15 ML PO (09:02)
[2020-12-19 10:19] VITALS: BMI 24.2
[2020-12-19 11:44] LABS: Glucose Point of Care 193 mg/dl (65-105)
[2020-12-19] MEDS: oxyCODONE/ACETAMINOPHEN (*CRX) 5-325 MG TABLET 1 TABLET PO ×3 (13:52→22:32)
[2020-12-19 14:00] VITALS: BP 113/64; PULSE 90; RESP 18; TEMP 36.1; O2SAT 96
[2020-12-19 17:05] LABS: Glucose Point of Care 141 mg/dl (65-105)
[2020-12-19] MEDS: SENNA/DOCUSATE SODIUM TABLET 1 TAB PO (20:32)
[2020-12-19] MEDS: ROSUVASTATIN 5 MG TABLET PO (20:32)
[2020-12-19 21:12] VITALS: BP 111/67; PULSE 85; RESP 16; TEMP 36.1; O2SAT 94
[2020-12-20] MEDS: oxyCODONE/ACETAMINOPHEN (*CRX) 5-325 MG TABLET 1 TABLET PO ×5 (02:39→22:42)
[2020-12-20 06:00] VITALS: BP 102/61; PULSE 76; RESP 16; TEMP 36.3; O2SAT 97
[2020-12-20 06:17] LABS: Glucose Point of Care 142 mg/dl (65-105)
[2020-12-20 06:17] LABS: Glucose Point of Care 193 mg/dl (65-105)
[2020-12-20] MEDS: metFORMIN HCL 500 MG TABLET PO ×2 (08:59→17:03)
[2020-12-20] MEDS: TAMSULOSIN HCL 0.4 MG CAPSULE PO (08:59)
[2020-12-20] MEDS: ASPIRIN 81 MG ENTERIC TABLET PO (08:59)
[2020-12-20] MEDS: ENOXAPARIN 40 MG/0.4 ML SYRINGE SUB-Q (08:59)
[2020-12-20] MEDS: guaiFENesin 12 HR 600 MG TABCR 1200 MG PO ×2 (08:59→20:29)
[2020-12-20] MEDS: LORATADINE 10 MG TABLET PO (08:59)
[2020-12-20] MEDS: polyethylene glycoL 3350 17 GM POWD.PACK PO (08:59)
[2020-12-20] MEDS: CEFDINIR 300 MG CAPSULE PO ×2 (08:59→20:29)
[2020-12-20] MEDS: MAGNESIUM HYDROXIDE SUSP 30 ML UDC 15 ML PO (08:59)
[2020-12-20] MEDS: FLUTICASONE PROPIONATE 0.05% NA SPR 16 GM BTL (*BKC) 1 SPRAY NASAL ×2 (08:59→20:28)
[2020-12-20] MEDS: FINASTERIDE 5 MG TABLET PO (08:59)
--- NOTE | 2020-12-20 11:14 | WPDNEURORHBP ---
Subjective Date/time seen: 12/20/20 11:14 Interval history: The etiologic diagnosis is transverse angulated and displaced subcapital left femoral neck fracture. The patient is a 70-year-old male that presented to [facility] on 12/09/2020 after experiencing a ground level fall. Past medical history significant for BPH, COPD, type 2 diabetes, GERD, hepatitis C, hypotonic bladder, chronic respiratory failure with home O2 use, history of prolonged prostatitis. Patient reports his walking out of his nieces and tripped over a rug and fell landing on his left hip. Patient did not strike his head. Imaging in the ER revealed transverse angulated and displaced subcapital left femoral neck fracture. EKG showed normal sinus rhythm. Orthopedic surgery was consulted and patient underwent a left hemiarthroplasty by Dr. Goodson on 12/11/2020. He is weight-bearing as tolerated. He has left anterior hip precautions. Postoperatively patient experienced acute postop pain, acute blood loss anemia, increasing need of inhalers, congestion, hyponatremia, and new onset serosanguineous drainage. Patient was given IV Rocephin for the drainage and now switched over to p.o. Cefdinir 300 mg b.i.d. times 10 days. Patient is to stop taking on 12/27/2020. Postop pain is being treated with oral analgesics, his anemia is stable. patient is able to cath himself independently. Patient remains on home O2 patient requires 3 L of O2 during the daytime and 2 L at night. Patient requires Mucinex for congestion with favorable results. Hyponatremia is being repleted. Patient will be will be continuing on Lovenox for DVT prophylaxis for at least 21 days. 12/18/2020. patient admits to chronic constipation and has not had a bowel movement in a few days. Patient will be offered Dulcolax suppository and enema. Aggressive bowel program will begin. Patient admits to discomfort of the left hip. Mucinex was not present on transfer medications will add to current med list. 12/20/20 patient states that Mucinex has helped with his breathing and congestion. Patient has had a bowel movement with the use of suppository. Hip pain is improving. transfers are Min to contact guard. Patient tends to araiza transfers. Review of Systems Constitutional: Constitutional: Reports no additional constitutional complaints Cardiovascular: Cardiovascular: Reports no additional cardiovascular complaints, Reports dyspnea and Reports dyspnea on exertion Respiratory: Respiratory: Reports chest congestion, Reports cough, Reports dyspnea and Reports dyspnea on exertion Gastrointestinal: Gastrointestinal: Reports constipation (chronic) Functional Status Ambulation Ability Ability to Ambulate 10 Feet: Contact Guard Ability to Ambulate 50 Feet With 2 Turns: Contact Guard Ambulation Assistive Devices: Walker, Wheeled Transfers Ability Ability to Transfer In/Out of Chair: Contact Guard Exam Narrative: Exam Narrative: Head is normocephalic. Extraocular muscles are intact. Pupils are equal reactive light and accommodation. Speech is fluent. Neck is supple. Heart rate and rhythm is regular. Lungs sounds are clear with distant breath sounds. Abdomen is obese with positive bowel sounds. Bruising is noted to the stomach from injection sites. Left hip incision shows scant serous drainage, no redness. Bilateral upper extremity strength are 4-5 left lower extremity strength is essentially 2/5 and distally 3/5 right lower extremity strength is 4- out of 5 Objective Data Vital Signs Vital Signs: Vital Signs - 24 hr 12/19/20 14:00 12/19/20 21:12 12/20/20 06:00 Temperature 36.1 C L 36.1 C L 36.3 C L Pulse Rate 90 85 76 Respiratory Rate 18 16 16 Blood Pressure 113/64 111/67 102/61 Pulse Oximetry 96 94 97 Intake/Output Intake/Output: Intake & Output 12/17/20 12/18/20 12/19/20 12/20/20 23:59 23:59 23:59 23:59 Intake Total 957 900 8039 240 Balance 067 517 2565 240
--- NOTE | 2020-12-20 11:32 | RPD ---
INDIVIDUALIZED PLAN OF CARE FOR Aelx Wallace Brief Synthesis of Pre-Admission Screen, Post-Admission Evaluation and Therapy Evaluations: The patient presents to rehab with transverse angulated and displaced subcapital left femoral neck fracture. Comorbidities include GERD, BPH with obstruction, hepatitis C, cervical radiculopathy sinusitis, chronic lumbar pain, COPD, chronic respiratory failure with hypoxia, current smoker, DMII with hyperglycemia, IBS, HLD, lumbar stenosis, osteoarthritis, osteoporosis, s/p ground level fall, hypotonic bladder, hematuria secondary to traumatic catheterization, and required straight cath PRN. The complexity of the patient's medical management, nursing, and therapy needs require an inpatient rehab hospital stay with a physician-led interdisciplinary team approach. The patient?s needs will be best met in an intensive program vs. at a lower level of care. The patient requires physician services for medical oversight, management of postop complications in setting of present comorbidities, and pain management. Post-op complications have included ABLA, acute post-operative pain, and significant hypotension. She will be followed at least three times a week by the rehabilitation physician. Orthopedics may see the patient at the frequency of their discretion. Labs will be drawn to monitor blood counts and electrolytes periodically. The patient requires nursing services for DVT prophylactics, infection protection, medication management and education, pressure relief, and wound care. Deficits include:ADLs, Balance, Endurance, Family Training/Education, Mobility, Pain Management, ROM, Safety, Strength, and Transfers Furnace Filler/Case Management for: Discharge Planning and Patient/Family Counseling Physical Therapy: 5 days per week for 90 minutes. Treatments may include: Therapeutic Exercise, Gait Training, Neuromuscular Re-education, Transfer Training, Community Reintegration, Bed Mobility, Patient/Family Education, Wheelchair Mobility Group Therapy/Concurrent Therapy Rationales: -Improve attention span during functional activities in a distracted environment. -Enhance problem solving and/or adequate judgment skills during functional activities in a distracted environment. -Promote increased safety awareness in a distracted environment to reduce fall risk with functional tasks, transfers, and ambulation to allow a more safe, self-sufficient return to the home environment. -Improve dynamic balance skills to promote safety and independence with functional activities in a distracted environment for maximum gain. Occupational Therapy: 5 days per week for 90 minutes. Treatments may include: Therapeutic Exercise, Therapeutic Activity, Cognitive Training, Self-Care Transfer Training, Community Reintegration, Home Management, Patient/Family Education, Wheelchair Mobility Training, Energy Conservation Training Group Therapy/Concurrent Therapy Rationales: -Allow therapist to observe and teach generalization and carry-over of skills learned in individual therapy. -Enhance problem solving and sequencing skills during therapeutic activities in a distracted environment. -Promote increased safety awareness in a realistic setting to reduce fall risk with functional tasks due to visual and verbal distractions. -Increase functional level with ADLs, ADL transfers and use of adaptive equipment through therapeutic activities with others while promoting safety to allow a more safe, self-sufficient return home. Medical Prognosis: Good Anticipated Length of Stay: 14 days Rehab Goals: Eating Goal: 06-Independent Oral Hygiene Goal: 06-Independent Toileting Hygiene Goal: 06-Independent Shower/Bathe Self Goal: 05-Setup or Clean Up Assistance Upper Body Dressing Goal: 06-Independent Lower Body Dressing Goal: 06-Independent Putting On/Taking Off Footwear Goal: 06-Independent Rolling Left and Right Goal: 04-Supervision or Touching Assistance Sit to Lying Goal: 0
[2020-12-20 12:07] LABS: Glucose Point of Care 170 mg/dl (65-105)
[2020-12-20 13:02] VITALS: BMI 24.2
[2020-12-20 14:00] VITALS: BP 117/64; PULSE 74; RESP 18; TEMP 36.5; O2SAT 98
--- NOTE | 2020-12-20 14:05 | PM.IMPN ---
Progress Note: A&P Assessment and Plan (1) History of total left hip replacement: Code(s): Z96.642 - Presence of left artificial hip joint Status: Acute Assessment and Plan: Here for rehab PT/OT Managed by the rehab center (2) Hyperlipidemia: Code(s): E78.5 - Hyperlipidemia, unspecified Status: Acute Assessment and Plan: Continue home Rosuvastatin (3) Chronic respiratory failure: Code(s): J96.10 - Chronic respiratory failure, unspecified whether with hypoxia or hypercapnia Status: Acute Assessment and Plan: 3L NC with activity, 2L at night Trend SPO2 Adjust supplemental oxygen to maintain a saturation of 88-92% Continue home Symbicort 2 puff q12hr Albuterol inhaler 2 puffs Q4 PRN (4) Diabetes mellitus, type II: Code(s): E11.9 - Type 2 diabetes mellitus without complications Status: Acute Assessment and Plan: Meformin 500mg PO BID Accu Check AC/HS Consider sliding scale if needed trend glucose adjust medications as needed. (5) BPH (benign prostatic hyperplasia): Code(s): N40.0 - Benign prostatic hyperplasia without lower urinary tract symptoms Status: Acute Assessment and Plan: Continue home finasteride 5mg PO daily and Tamsulosin 0.4mg PO daily Straight cath at night I&O (6) Acute on chronic respiratory failure with hypoxia and hypercapnia: Code(s): J96.21 - Acute and chronic respiratory failure with hypoxia; J96.22 - Acute and chronic respiratory failure with hypercapnia Status: Acute Assessment and Plan: See above (7) COPD (chronic obstructive pulmonary disease): Code(s): J44.9 - Chronic obstructive pulmonary disease, unspecified Status: Acute Assessment and Plan: 3L NC with activity, 2L at night Trend SPO2 Adjust supplemental oxygen to maintain a saturation of 88-92% Continue home Symbicort 2 puff q12hr Albuterol inhaler 2 puffs Q4 PRN Stop Atrovent (8) Constipation: Code(s): K59.00 - Constipation, unspecified Status: Acute Assessment and Plan: Continue Miralax and Senokot daily Lactulose enema PRN Subjective Date/time seen: 12/20/20 14:05 Interval history: Patient is a 70 year old male with a past medical history of BPH, Hep C, COPD, DM2, Hypotonic bladder, chronic respiratory failure with home O2 that was sent to the rehab facility for rehab after fracturing his left femoral neck. Patient stated that this happened about a week or so ago and that his hip was repaired last Sunday at [facility]. He did say that he was feeling ok today, but all in all not the best. He said that today is the first day that everything is starting and that he knows he is going to have some aches and pains. He also mentioned that he is worried about his COPD and that he wears 3LNC with activity and and 2L at night. While at rest he does not wear anything. He is also concerned about the medications that he is taking along with the interaction of them together. He is currently sitting in the wheel chair, awaiting someone to bring him a suppository. He said that he knows he is constipated because of the pain medications. He also stated that he has BPH and a hypotonic bladder that he straight caths himself before bed. Throughout the day he is able to urinate. He stated that it is still rough but he makes it work. She denies chest pain, shortness of breath, nausea, vomiting, diarrhea, constipation, numbness tingling, sweats, chills. 12/20/20 Patient has no complaints today. He said that he is doing the best he can. He also stated that the constipation is being more controlled with the medications that he is given. He did say that when he is at home he walks around the yard for 25 minutes, lifts light weights of 7 sets of 10 reps of bench press. He has no other complaints at this
[2020-12-20 16:39] LABS: Glucose Point of Care 156 mg/dl (65-105)
[2020-12-20 20:00] VITALS: O2SAT 96
[2020-12-20] MEDS: SENNA/DOCUSATE SODIUM TABLET 1 TAB PO (20:29)
[2020-12-20] MEDS: ROSUVASTATIN 5 MG TABLET PO (20:29)
[2020-12-20 21:18] VITALS: BP 114/66; PULSE 82; RESP 16; TEMP 36.2; O2SAT 92
[2020-12-21] MEDS: oxyCODONE/ACETAMINOPHEN (*CRX) 5-325 MG TABLET 1 TABLET PO ×3 (02:49→14:25)
[2020-12-21 06:00] VITALS: BP 106/65; PULSE 73; RESP 16; TEMP 36.6; O2SAT 98
[2020-12-21 08:00] VITALS: O2SAT 97
[2020-12-21] MEDS: metFORMIN HCL 500 MG TABLET PO ×2 (10:05→17:07)
[2020-12-21] MEDS: polyethylene glycoL 3350 17 GM POWD.PACK PO (10:05)
[2020-12-21] MEDS: guaiFENesin 12 HR 600 MG TABCR 1200 MG PO ×2 (10:06→20:28)
[2020-12-21] MEDS: LORATADINE 10 MG TABLET PO (10:06)
[2020-12-21] MEDS: CEFDINIR 300 MG CAPSULE PO ×2 (10:06→20:29)
[2020-12-21] MEDS: TAMSULOSIN HCL 0.4 MG CAPSULE PO (10:06)
[2020-12-21] MEDS: FINASTERIDE 5 MG TABLET PO (10:06)
[2020-12-21] MEDS: MAGNESIUM HYDROXIDE SUSP 30 ML UDC 15 ML PO (10:06)
[2020-12-21] MEDS: ASPIRIN 81 MG ENTERIC TABLET PO (10:07)
[2020-12-21] MEDS: FLUTICASONE PROPIONATE 0.05% NA SPR 16 GM BTL (*BKC) 1 SPRAY NASAL ×2 (10:07→20:28)
[2020-12-21] MEDS: ENOXAPARIN 40 MG/0.4 ML SYRINGE SUB-Q (10:07)
[2020-12-21 12:22] LABS: Glucose Point of Care 138 mg/dl (65-105)
[2020-12-21 12:22] LABS: Glucose Point of Care 166 mg/dl (65-105)
--- NOTE | 2020-12-21 13:18 | WPDNEURORHBP ---
Subjective Date/time seen: 12/21/20 13:18 Interval history: Patient is a 70 year old male with a past medical history of BPH, Hep C, COPD, DM2, Hypotonic bladder, chronic respiratory failure with home O2 that was sent to the rehab facility for rehab after fracturing his left femoral neck. Patient stated that this happened about a week or so ago and that his hip was repaired last Sunday at [facility]. He did say that he was feeling ok today, but all in all not the best. He said that today is the first day that everything is starting and that he knows he is going to have some aches and pains. He also mentioned that he is worried about his COPD and that he wears 3LNC with activity and and 2L at night. While at rest he does not wear anything. He is also concerned about the medications that he is taking along with the interaction of them together. He is currently sitting in the wheel chair, awaiting someone to bring him a suppository. He said that he knows he is constipated because of the pain medications. He also stated that he has BPH and a hypotonic bladder that he straight caths himself before bed. Throughout the day he is able to urinate. He stated that it is still rough but he makes it work. She denies chest pain, shortness of breath, nausea, vomiting, diarrhea, constipation, numbness tingling, sweats, chills. 12/20/20 Patient has no complaints today. He said that he is doing the best he can. He also stated that the constipation is being more controlled with the medications that he is given. He did say that when he is at home he walks around the yard for 25 minutes, lifts light weights of 7 sets of 10 reps of bench press. He has no other complaints at this time including chest pain or shortness of breath. He is still self cathing when needed. 12/21/20 Team conference patient is able to perform self caths. Patient is continent of bowel. Patient is on stool softeners due to his chronic constipation. Patient is on Lovenox . Patient is at standby to contact guard with transfers.He is ambulating 100 ft with contact guard using a wheeled walker. Stairs are requiring min assistance He requires mod assistance for shoe donning and doffing. He is contact guard to standby assistance for rest of ADLs. Pain management will be scheduled Tylenol. Patient has been counseled to decrease his use of Percocet. Patient does require cues for safety and at times is impulsive. Tentative discharge dates possibly end of this week beginning of next week. Patient will require ADL equipment and a bath bench. Patient has is own wheeled walker. Review of Systems Review of Systems: All systems reviewed & are unremarkable except as noted in HPI and below Functional Status Ambulation Ability Ability to Ambulate 10 Feet: Contact Guard Ability to Ambulate 50 Feet With 2 Turns: Contact Guard Ambulation Assistive Devices: Walker, Wheeled Transfers Ability Ability to Transfer In/Out of Chair: Contact Guard Exam Narrative: Exam Narrative: Head is normocephalic. Extraocular muscles are intact. Pupils are equal reactive light and accommodation. Speech is fluent. Neck is supple. Heart rate and rhythm is regular. Lungs sounds are clear with distant breath sounds. Abdomen is obese with positive bowel sounds. Bruising is noted to the stomach from injection sites. Left hip dressing is clean and dry. Bilateral upper extremity strength are 4-5 left lower extremity strength is essentially 2/5 and distally 3/5 right lower extremity strength is 4- out of 5 Objective Data Vital Signs Vital Signs: Vital Signs - 24 hr 12/20/20 14:00 12/20/20 20:00 12/20/20 21:18 Temperature 36.5 C 36.2 C L Pulse Rate 74 82 Respiratory Rate 18 16 Blood Pressure 117/64 114/66 Pulse Oximetry 98 96 92 12/21/20 06:00 12/21/20 08:00 Temperature 36.6 C Pulse Rate 73 Respiratory Rate 16 Blood Pressure 106/65 Pulse Oximetry 98 97 Intake/Output Intake/Outpu
[2020-12-21 14:00] VITALS: BP 127/69; PULSE 79; RESP 20; TEMP 36.2; O2SAT 96
[2020-12-21] MEDS: ACETAMINOPHEN 500 MG TABLET 1000 MG PO ×2 (17:50→23:31)
[2020-12-21 19:40] LABS: Glucose Point of Care 156 mg/dl (65-105)
[2020-12-21 19:40] LABS: Glucose Point of Care 143 mg/dl (65-105)
[2020-12-21] MEDS: ROSUVASTATIN 5 MG TABLET PO (20:29)
[2020-12-21] MEDS: SENNA/DOCUSATE SODIUM TABLET 1 TAB PO (20:29)
[2020-12-21 21:38] VITALS: BP 93/55; PULSE 73; RESP 16; TEMP 36; O2SAT 99
--- NOTE | 2020-12-21 23:33 | PC.NURSE ---
pt requested that he only take one tablet instead of the scheduled 1000 mg of tylenol
[2020-12-22 06:00] VITALS: BP 107/60; PULSE 72; RESP 16; TEMP 36.1; O2SAT 99
[2020-12-22] MEDS: oxyCODONE/ACETAMINOPHEN (*CRX) 5-325 MG TABLET 1 TABLET PO (07:34)
[2020-12-22] MEDS: ASPIRIN 81 MG ENTERIC TABLET PO (07:36)
[2020-12-22] MEDS: ENOXAPARIN 40 MG/0.4 ML SYRINGE SUB-Q (07:36)
[2020-12-22] MEDS: CEFDINIR 300 MG CAPSULE PO ×2 (07:36→20:20)
[2020-12-22] MEDS: FINASTERIDE 5 MG TABLET PO (07:37)
[2020-12-22] MEDS: MAGNESIUM HYDROXIDE SUSP 30 ML UDC 15 ML PO (07:37)
[2020-12-22] MEDS: FLUTICASONE PROPIONATE 0.05% NA SPR 16 GM BTL (*BKC) 1 SPRAY NASAL ×2 (07:37→20:16)
[2020-12-22] MEDS: guaiFENesin 12 HR 600 MG TABCR 1200 MG PO ×2 (07:37→20:20)
[2020-12-22] MEDS: LORATADINE 10 MG TABLET PO (07:37)
[2020-12-22] MEDS: TAMSULOSIN HCL 0.4 MG CAPSULE PO (07:38)
[2020-12-22] MEDS: metFORMIN HCL 500 MG TABLET PO ×2 (07:38→18:01)
[2020-12-22] MEDS: polyethylene glycoL 3350 17 GM POWD.PACK PO (07:38)
[2020-12-22 08:00] VITALS: O2SAT 99
[2020-12-22 10:31] LABS: Glucose Point of Care 124 mg/dl (65-105)
[2020-12-22 11:35] LABS: Glucose Point of Care 157 mg/dl (65-105)
[2020-12-22] MEDS: ACETAMINOPHEN 500 MG TABLET 1000 MG PO ×3 (12:27→23:31)
[2020-12-22 13:45] VITALS: BP 113/76; PULSE 83; RESP 18; TEMP 36.1; O2SAT 98
--- NOTE | 2020-12-22 14:25 | WPDNEURORHBP ---
Subjective Date/time seen: 12/22/20 14:25 Interval history: Patient is a 70 year old male with a past medical history of BPH, Hep C, COPD, DM2, Hypotonic bladder, chronic respiratory failure with home O2 that was sent to the rehab facility for rehab after fracturing his left femoral neck. Patient stated that this happened about a week or so ago and that his hip was repaired last Sunday at [facility]. He did say that he was feeling ok today, but all in all not the best. He said that today is the first day that everything is starting and that he knows he is going to have some aches and pains. He also mentioned that he is worried about his COPD and that he wears 3LNC with activity and and 2L at night. While at rest he does not wear anything. He is also concerned about the medications that he is taking along with the interaction of them together. He is currently sitting in the wheel chair, awaiting someone to bring him a suppository. He said that he knows he is constipated because of the pain medications. He also stated that he has BPH and a hypotonic bladder that he straight caths himself before bed. Throughout the day he is able to urinate. He stated that it is still rough but he makes it work. She denies chest pain, shortness of breath, nausea, vomiting, diarrhea, constipation, numbness tingling, sweats, chills. 12/20/20 Patient has no complaints today. He said that he is doing the best he can. He also stated that the constipation is being more controlled with the medications that he is given. He did say that when he is at home he walks around the yard for 25 minutes, lifts light weights of 7 sets of 10 reps of bench press. He has no other complaints at this time including chest pain or shortness of breath. He is still self cathing when needed. 12/21/20 Team conference patient is able to perform self caths. Patient is continent of bowel. Patient is on stool softeners due to his chronic constipation. Patient is on Lovenox . Patient is at standby to contact guard with transfers.He is ambulating 100 ft with contact guard using a wheeled walker. Stairs are requiring min assistance He requires mod assistance for shoe donning and doffing. He is contact guard to standby assistance for rest of ADLs. Pain management will be scheduled Tylenol. Patient has been counseled to decrease his use of Percocet. Patient does require cues for safety and at times is impulsive. Tentative discharge dates possibly end of this week beginning of next week. Patient will require ADL equipment and a bath bench. Patient has is own wheeled walker. Review of Systems Review of Systems: All systems reviewed & are unremarkable except as noted in HPI and below Constitutional: Constitutional: Reports no additional constitutional complaints Cardiovascular: Cardiovascular: Reports no additional cardiovascular complaints, Reports dyspnea and Reports dyspnea on exertion Respiratory: Respiratory: Reports chest congestion, Reports cough, Reports dyspnea and Reports dyspnea on exertion Gastrointestinal: Gastrointestinal: Reports constipation (chronic) Functional Status Ambulation Ability Ability to Ambulate 10 Feet: Standby Assistance Ability to Ambulate 50 Feet With 2 Turns: Standby Assistance Ambulation Assistive Devices: Walker, Wheeled Transfers Ability Ability to Transfer In/Out of Chair: Standby Assistance Exam Narrative: Exam Narrative: Head is normocephalic. Extraocular muscles are intact. Pupils are equal reactive light and accommodation. Speech is fluent. Neck is supple. Heart rate and rhythm is regular. Lungs sounds are clear with distant breath sounds. Abdomen is obese with positive bowel sounds. Bruising is noted to the stomach from injection sites. Left hip dressing is clean and dry. Bilateral upper extremity strength are 4-5 left lower extremity strength is essentially 2/5 and distally 3/5 right lower extremity strength is 4- out of 5
[2020-12-22 16:32] LABS: Glucose Point of Care 115 mg/dl (65-105)
[2020-12-22 19:42] LABS: Glucose Point of Care 189 mg/dl (65-105)
[2020-12-22] MEDS: SENNA/DOCUSATE SODIUM TABLET 1 TAB PO (20:20)
[2020-12-22] MEDS: ROSUVASTATIN 5 MG TABLET PO (20:20)
[2020-12-22 22:00] VITALS: BP 103/57; PULSE 72; RESP 16; TEMP 36.2; O2SAT 97
[2020-12-23] MEDS: ACETAMINOPHEN 500 MG TABLET 1000 MG PO ×3 (05:44→17:45)
[2020-12-23 05:59] VITALS: BP 91/50; PULSE 67; RESP 16; TEMP 35.9; O2SAT 99
[2020-12-23 06:25] LABS: Glucose Point of Care 111 mg/dl (65-105)
[2020-12-23 08:00] VITALS: PULSE 67; RESP 16; O2SAT 99
[2020-12-23] MEDS: metFORMIN HCL 500 MG TABLET PO ×2 (09:08→17:45)
[2020-12-23] MEDS: ASPIRIN 81 MG ENTERIC TABLET PO (09:08)
[2020-12-23] MEDS: FINASTERIDE 5 MG TABLET PO (09:08)
[2020-12-23] MEDS: CEFDINIR 300 MG CAPSULE PO ×2 (09:08→22:02)
[2020-12-23] MEDS: TAMSULOSIN HCL 0.4 MG CAPSULE PO (09:08)
[2020-12-23] MEDS: LORATADINE 10 MG TABLET PO (09:08)
[2020-12-23] MEDS: ENOXAPARIN 40 MG/0.4 ML SYRINGE SUB-Q (09:09)
[2020-12-23] MEDS: MAGNESIUM HYDROXIDE SUSP 30 ML UDC 15 ML PO (09:09)
[2020-12-23] MEDS: FLUTICASONE PROPIONATE 0.05% NA SPR 16 GM BTL (*BKC) 1 SPRAY NASAL ×2 (09:09→22:01)
[2020-12-23] MEDS: guaiFENesin 12 HR 600 MG TABCR 1200 MG PO ×2 (09:09→22:02)
[2020-12-23] MEDS: polyethylene glycoL 3350 17 GM POWD.PACK PO (09:09)
[2020-12-23 09:30] VITALS: PULSE 89; O2SAT 98
[2020-12-23 14:00] VITALS: BP 96/63; PULSE 100; RESP 18; TEMP 36; O2SAT 98
--- NOTE | 2020-12-23 14:11 | WPDNEURORHBP ---
Subjective Date/time seen: 12/23/20 14:11 Interval history: Patient is a 70 year old male with a past medical history of BPH, Hep C, COPD, DM2, Hypotonic bladder, chronic respiratory failure with home O2 that was sent to the rehab facility for rehab after fracturing his left femoral neck. Patient stated that this happened about a week or so ago and that his hip was repaired last Sunday at [facility]. He did say that he was feeling ok today, but all in all not the best. He said that today is the first day that everything is starting and that he knows he is going to have some aches and pains. He also mentioned that he is worried about his COPD and that he wears 3LNC with activity and and 2L at night. While at rest he does not wear anything. He is also concerned about the medications that he is taking along with the interaction of them together. He is currently sitting in the wheel chair, awaiting someone to bring him a suppository. He said that he knows he is constipated because of the pain medications. He also stated that he has BPH and a hypotonic bladder that he straight caths himself before bed. Throughout the day he is able to urinate. He stated that it is still rough but he makes it work. She denies chest pain, shortness of breath, nausea, vomiting, diarrhea, constipation, numbness tingling, sweats, chills. 12/20/20 Patient has no complaints today. He said that he is doing the best he can. He also stated that the constipation is being more controlled with the medications that he is given. He did say that when he is at home he walks around the yard for 25 minutes, lifts light weights of 7 sets of 10 reps of bench press. He has no other complaints at this time including chest pain or shortness of breath. He is still self cathing when needed. 12/21/20 Team conference patient is able to perform self caths. Patient is continent of bowel. Patient is on stool softeners due to his chronic constipation. Patient is on Lovenox . Patient is at standby to contact guard with transfers.He is ambulating 100 ft with contact guard using a wheeled walker. Stairs are requiring min assistance He requires mod assistance for shoe donning and doffing. He is contact guard to standby assistance for rest of ADLs. Pain management will be scheduled Tylenol. Patient has been counseled to decrease his use of Percocet. Patient does require cues for safety and at times is impulsive. Tentative discharge dates possibly end of this week beginning of next week. Patient will require ADL equipment and a bath bench. Patient has is own wheeled walker. 12/23/20 patient is seen during physical therapy. Patient is at supervision for transfers. He requires supervision to min assist with gait. Patient does need reminders for safety and sequencing. Patient voices minimal complaints to the left hip. Review of Systems Review of Systems: All systems reviewed & are unremarkable except as noted in HPI and below Functional Status Ambulation Ability Ability to Ambulate 10 Feet: Standby Assistance Ability to Ambulate 50 Feet With 2 Turns: Standby Assistance Ambulation Assistive Devices: Walker, Wheeled Transfers Ability Ability to Transfer In/Out of Chair: Independent Exam Narrative: Exam Narrative: Head is normocephalic. Extraocular muscles are intact. Pupils are equal reactive light and accommodation. Speech is fluent. Neck is supple. Heart rate and rhythm is regular. Lungs sounds are clear with distant breath sounds. Bruising is noted to the stomach from injection sites. Left hip dressing is clean and dry. Bilateral upper extremity strength are 4-5 left lower extremity strength is essentially 2/5 and distally 3/5 right lower extremity strength is 4- out of 5 Objective Data Vital Signs Vital Signs: Vital Signs - 24 hr 12/22/20 22:00 12/23/20 05:59 12/23/20 08:00 Temperature 36.2 C L 35.9 C L Pulse Rate 72 67 67 Respiratory Rate 16 16 16 Blood Pre
--- NOTE | 2020-12-23 14:51 | P.PNIM_ITS ---
Progress Note: A&P Assessment and Plan (1) History of total left hip replacement: Code(s): Z96.642 - Presence of left artificial hip joint Status: Acute Assessment and Plan: * Here for rehab * PT/OT * Managed by the rehab center (2) Hyperlipidemia: Code(s): E78.5 - Hyperlipidemia, unspecified Status: Acute Assessment and Plan: * Continue home Rosuvastatin (3) Chronic respiratory failure: Code(s): J96.10 - Chronic respiratory failure, unspecified whether with hypoxia or hypercapnia Status: Acute Assessment and Plan: * 3L NC with activity, 2L at night * Continue home Symbicort 2 puff q12hr * Albuterol inhaler 2 puffs Q4 PRN * Feeling well at this time. No worsening shortness of breath or respiratory symptoms. (4) Diabetes mellitus, type II: Code(s): E11.9 - Type 2 diabetes mellitus without complications Status: Acute Assessment and Plan: * Meformin 500mg PO BID * Accu Check AC/HS * Consider sliding scale if needed * trend glucose * adjust medications as needed. (5) BPH (benign prostatic hyperplasia): Code(s): N40.0 - Benign prostatic hyperplasia without lower urinary tract symptoms Status: Acute Assessment and Plan: * Continue home finasteride 5mg PO daily and Tamsulosin 0.4mg PO daily * Straight cath at night * I&O (6) Acute on chronic respiratory failure with hypoxia and hypercapnia: Code(s): J96.21 - Acute and chronic respiratory failure with hypoxia; J96.22 - Acute and chronic respiratory failure with hypercapnia Status: Acute Assessment and Plan: * See above (7) COPD (chronic obstructive pulmonary disease): Code(s): J44.9 - Chronic obstructive pulmonary disease, unspecified Status: Acute Assessment and Plan: * 3L NC with activity, 2L at night * Adjust supplemental oxygen to maintain a saturation of 88-92% * Continue home Symbicort 2 puff q12hr * Albuterol inhaler 2 puffs Q4 PRN * Stable at this time. (8) Constipation: Code(s): K59.00 - Constipation, unspecified Status: Acute Assessment and Plan: * Continue Miralax and Senokot daily * Lactulose enema PRN Time Spent With Patient Time with patient: 25 - 35 minutes Subjective Date/time seen: 12/23/20 14:51 Interval history: Patient is a 70 year old male with a past medical history of BPH, Hep C, COPD, DM2, Hypotonic bladder, chronic respiratory failure with home O2 that was sent to the rehab facility for rehab after fracturing his left femoral neck. 12/23/20 the patient reports feeling well at this time. He states his breathing is at his baseline, 2 L at night while he sleeps, 3 L with exertion, no oxygen while he is resting comfortably. The patient states his hip pain is well controlled at this time. He denies any fevers, chills, cough, chest pain, nausea, vomiting, abdominal pain, leg swelling, calf pain, lightheadedness, dizziness, or any other symptoms at this time Review of Systems Review of Systems: All systems reviewed & are unremarkable except as noted in HPI and below Exam Narrative: Exam Narrative: General: 70-year-old male sitting up in bed, talking to therapy. Appears comfortable. In no acute distress. Skin: No jaundice or cyanosis. Good skin turgor. Neck: Full range of motion. Supple.
--- NOTE | 2020-12-23 14:51 | PM.IMPN ---
Progress Note: A&P Assessment and Plan (1) History of total left hip replacement: Code(s): Z96.642 - Presence of left artificial hip joint Status: Acute Assessment and Plan: Here for rehab PT/OT Managed by the rehab center (2) Hyperlipidemia: Code(s): E78.5 - Hyperlipidemia, unspecified Status: Acute Assessment and Plan: Continue home Rosuvastatin (3) Chronic respiratory failure: Code(s): J96.10 - Chronic respiratory failure, unspecified whether with hypoxia or hypercapnia Status: Acute Assessment and Plan: 3L NC with activity, 2L at night Continue home Symbicort 2 puff q12hr Albuterol inhaler 2 puffs Q4 PRN Feeling well at this time. No worsening shortness of breath or respiratory symptoms. (4) Diabetes mellitus, type II: Code(s): E11.9 - Type 2 diabetes mellitus without complications Status: Acute Assessment and Plan: Meformin 500mg PO BID Accu Check AC/HS Consider sliding scale if needed trend glucose adjust medications as needed. (5) BPH (benign prostatic hyperplasia): Code(s): N40.0 - Benign prostatic hyperplasia without lower urinary tract symptoms Status: Acute Assessment and Plan: Continue home finasteride 5mg PO daily and Tamsulosin 0.4mg PO daily Straight cath at night I&O (6) Acute on chronic respiratory failure with hypoxia and hypercapnia: Code(s): J96.21 - Acute and chronic respiratory failure with hypoxia; J96.22 - Acute and chronic respiratory failure with hypercapnia Status: Acute Assessment and Plan: See above (7) COPD (chronic obstructive pulmonary disease): Code(s): J44.9 - Chronic obstructive pulmonary disease, unspecified Status: Acute Assessment and Plan: 3L NC with activity, 2L at night Adjust supplemental oxygen to maintain a saturation of 88-92% Continue home Symbicort 2 puff q12hr Albuterol inhaler 2 puffs Q4 PRN Stable at this time. (8) Constipation: Code(s): K59.00 - Constipation, unspecified Status: Acute Assessment and Plan: Continue Miralax and Senokot daily Lactulose enema PRN Time Spent With Patient Time with patient: 25 - 35 minutes Subjective Date/time seen: 12/23/20 14:51 Interval history: Patient is a 70 year old male with a past medical history of BPH, Hep C, COPD, DM2, Hypotonic bladder, chronic respiratory failure with home O2 that was sent to the rehab facility for rehab after fracturing his left femoral neck. 12/23/20 the patient reports feeling well at this time. He states his breathing is at his baseline, 2 L at night while he sleeps, 3 L with exertion, no oxygen while he is resting comfortably. The patient states his hip pain is well controlled at this time. He denies any fevers, chills, cough, chest pain, nausea, vomiting, abdominal pain, leg swelling, calf pain, lightheadedness, dizziness, or any other symptoms at this time Review of Systems Review of Systems: All systems reviewed & are unremarkable except as noted in HPI and below Exam Narrative: Exam Narrative: General: 70-year-old male sitting up in bed, talking to therapy. Appears comfortable. In no acute distress. Skin: No jaundice or cyanosis. Good skin turgor. Neck: Full range of motion. Supple. Respiratory: Lungs are clear to auscultation bilaterally. No wheezing, rales or rhonchi. No bony chest wall tenderness. Cardiovascular: The heart has a regular rate and rhythm without murmur. Lower extremities: No lower extremity edema. Distal pulses are easily palpated. No calf tenderness to palpation. Gastrointestinal: The abdomen is soft, nontender and nondistended with active bowel sounds. Psychiatric: Lucid and oriented. Memory intact. Neurologic: No focal deficits. Speech is clear. No facial drooping. Objective Data Vital Signs Vital Signs: Vit
[2020-12-23 17:21] LABS: Glucose Point of Care 123 mg/dl (65-105)
[2020-12-23 17:21] LABS: Glucose Point of Care 112 mg/dl (65-105)
[2020-12-23 20:00] VITALS: O2SAT 96
[2020-12-23 22:00] VITALS: BP 123/72; PULSE 75; RESP 20; TEMP 36.2; O2SAT 98
[2020-12-23] MEDS: ROSUVASTATIN 5 MG TABLET PO (22:02)
[2020-12-23] MEDS: SENNA/DOCUSATE SODIUM TABLET 1 TAB PO (22:02)
[2020-12-23 22:12] LABS: Glucose Point of Care 116 mg/dl (65-105)
[2020-12-24] MEDS: ACETAMINOPHEN 500 MG TABLET 1000 MG PO ×4 (00:47→16:25)
[2020-12-24 06:00] VITALS: BP 104/61; PULSE 81; RESP 20; TEMP 35.9; O2SAT 98
[2020-12-24 08:00] VITALS: PULSE 71; RESP 20; O2SAT 97
[2020-12-24] MEDS: ASPIRIN 81 MG ENTERIC TABLET PO (09:11)
[2020-12-24] MEDS: metFORMIN HCL 500 MG TABLET PO ×2 (09:11→16:25)
[2020-12-24] MEDS: FINASTERIDE 5 MG TABLET PO (09:11)
[2020-12-24] MEDS: TAMSULOSIN HCL 0.4 MG CAPSULE PO (09:11)
[2020-12-24] MEDS: guaiFENesin 12 HR 600 MG TABCR 1200 MG PO ×2 (09:11→20:50)
[2020-12-24] MEDS: polyethylene glycoL 3350 17 GM POWD.PACK PO (09:11)
[2020-12-24] MEDS: CEFDINIR 300 MG CAPSULE PO ×2 (09:11→20:50)
[2020-12-24] MEDS: ENOXAPARIN 40 MG/0.4 ML SYRINGE SUB-Q (09:11)
[2020-12-24] MEDS: LORATADINE 10 MG TABLET PO (09:11)
[2020-12-24] MEDS: MAGNESIUM HYDROXIDE SUSP 30 ML UDC 15 ML PO (09:12)
[2020-12-24] MEDS: FLUTICASONE PROPIONATE 0.05% NA SPR 16 GM BTL (*BKC) 1 SPRAY NASAL ×2 (09:12→20:51)
--- NOTE | 2020-12-24 09:45 | PCDIET ---
Nutrition Follow-Up Complete: No nutrition diagnosis at this time. Nutrition Goal: Patient will continue to consume 75% of meals or greater. Goal met. Patient consuming 75-100% of most meals on diabetic diet. Requesting Glucerna Shake (220kcal, 10g protein) daily which is appropriate. Last recorded weight is 76.6 kg. Recommend obtaining weekly weight. Bowel Motility: Last documented BM on 12/22/20. Labs Reviewed: Glu (116) Meds Noted: Symbicort, Lactulose, Miralax, Omnicef, Glucophage, Crestor, Senna Additional Notes: Left hip incision with coverlet. No documented pressure sores. Will continue to monitor with same goal. Nutrition Monitoring and Evaluation: Follow up in 7 days.
[2020-12-24 09:50] VITALS: PULSE 71; O2SAT 97
[2020-12-24 12:20] LABS: Glucose Point of Care 110 mg/dl (65-105)
[2020-12-24 12:20] LABS: Glucose Point of Care 118 mg/dl (65-105)
--- NOTE | 2020-12-24 12:44 | P.PNNERE_ITS ---
Subjective Date/time seen: 12/24/20 12:44 Interval history: Patient is a 70 year old male with a past medical history of BPH, Hep C, COPD, DM2, Hypotonic bladder, chronic respiratory failure with home O2 that was sent to the rehab facility for rehab after fracturing his left femoral neck. Patient stated that this happened about a week or so ago and that his hip was repaired last Sunday at [facility]. He did say that he was feeling ok today, but all in all not the best. He said that today is the first day that everything is starting and that he knows he is going to have some aches and pains. He also mentioned that he is worried about his COPD and that he wears 3LNC with activity and and 2L at night. While at rest he does not wear anything. He is also concerned about the medications that he is taking along with the interaction of them together. He is currently sitting in the wheel chair, awaiting someone to bring him a suppository. He said that he knows he is constipated because of the pain medications. He also stated that he has BPH and a hypotonic bladder that he straight caths himself before bed. Throughout the day he is able to urinate. He stated that it is still rough but he makes it work. She denies chest pain, shortness of breath, nausea, vomiting, diarrhea, constipation, numbness tingling, sweats, chills. 12/20/20 Patient has no complaints today. He said that he is doing the best he can. He also stated that the constipation is being more controlled with the medications that he is given. He did say that when he is at home he walks around the yard for 25 minutes, lifts light weights of 7 sets of 10 reps of bench press. He has no other complaints at this time including chest pain or shortness of breath. He is still self cathing when needed. 12/21/20 Team conference patient is able to perform self caths. Patient is continent of bowel. Patient is on stool softeners due to his chronic constipation. Patient is on Lovenox . Patient is at standby to contact guard with transfers.He is ambulating 100 ft with contact guard using a wheeled walker. Stairs are requiring min assistance He requires mod assistance for shoe donning and doffing. He is contact guard to standby assistance for rest of ADLs. Pain management will be scheduled Tylenol. Patient has been counseled to decrease his use of Percocet. 12/22/20 Patient does require cues for safety and at times is impulsive. Tentative discharge dates possibly end of this week beginning of next week. Patient will require ADL equipment and a bath bench. Patient has is own wheeled walker. 12/23/20 patient is seen during physical therapy. Patient is at supervision for transfers. He requires supervision to min assist with gait. Patient does need reminders for safety and sequencing. Patient voices minimal complaints to the left hip. 12/24/20 Patient seen in OT bathing. Patient remains impulsive. Patient voices no complaint. Tentative discharge for Sunday. Review of Systems Review of Systems: All systems reviewed & are unremarkable except as noted in HPI and below Constitutional: Constitutional: Reports no additional constitutional complaints Cardiovascular: Cardiovascular: Reports no additional cardiovascular complai nts, Reports dyspnea and Reports dyspnea on exertion Respiratory: Respiratory: Reports chest congestion, Reports cough, Reports dyspnea and Reports dyspnea on exertion Gastrointestinal: Gastrointestinal: Reports constipation (chronic) Functional Status Ambulation Ability Ability to Ambulate 10 Feet: Independent Ability to Ambulate 50 Feet With 2 Turns: Independent Ambulation Assistive Devices: Walker, Wheeled Tr
[2020-12-24 14:00] VITALS: BP 112/68; PULSE 80; RESP 18; TEMP 36.3; O2SAT 97
[2020-12-24 17:03] LABS: Glucose Point of Care 114 mg/dl (65-105)
[2020-12-24 20:15] LABS: Glucose Point of Care 146 mg/dl (65-105)
[2020-12-24] MEDS: SENNA/DOCUSATE SODIUM TABLET 1 TAB PO (20:50)
[2020-12-24] MEDS: ROSUVASTATIN 5 MG TABLET PO (20:50)
[2020-12-24 22:00] VITALS: BP 114/55; PULSE 83; RESP 16; TEMP 36.5; O2SAT 91
[2020-12-25] MEDS: ACETAMINOPHEN 500 MG TABLET 1000 MG PO ×4 (00:10→17:19)
[2020-12-25 05:43] LABS: Basophils Percent Auto 0.6 % (0.2-1.2); Eosinophils Absolute Auto 0.2 K/mm3 (0-0.3); Eosinophils Percent Auto 2.2 % (0-4.4); Hematocrit 33.4 % (42.0-52.0); Hemoglobin 10.2 g/dL (14.0-18.0); Immature Granulocyte Absolute 0.05 K/mm3 (0.00-0.031); Immature Granulocyte Percent A 0.7 % (0-0.5); Lymphocytes Absolute Auto 1.71 K/mm3 (0.9-3.2); Lymphocytes Percent Auto 25.5 % (18.3-44.2); Mean Corpuscular HGB Conc 30.5 g/dl (32-36); Mean Corpuscular Hemoglobin 28.3 pg (26-34); Mean Corpuscular Volume 92.8 fl (80-100); Mean Platelet Volume 9.3 fl (7.4-10.4); Monocytes Absolute Auto 0.6 K/mm3 (0.1-0.6); Monocytes Percent Auto 8.8 % (2.6-8.5); Neutrophils Absolute Auto 4.2 K/mm3 (1.3-6.7); Neutrophils Percent Auto 62.2 % (45.5-73.1); Platelet Count Result 393 k/mm3 (150-375); Red Cell Distribution Width 13.8 % (11.5-14.5); White Blood Count 6.7 K/mm3 (4.5-10.0)
[2020-12-25 05:55] LABS: Alanine Aminotransferase 34 U/L (4-50); Albumin Level 3.1 g/dL (3.5-5.1); Alkaline Phosphatase 79 U/L (38-126); Anion Gap 2 mmol/L (8-16); Aspartate Amino Transferase 34 U/L (17-59); Bilirubin,Total 0.3 mg/dL (0.2-1.3); Blood Urea Nitrogen 15 mg/dL (9-20); Calcium 8.7 mg/dL (8.4-10.2); Carbon Dioxide 31 mmol/L (22-30); Chloride 105 mmol/L (98-107); Estimated CRCL calculation 117 ml/min; Estimated Glomerular Filt Rate > 60; Glucose 114 mg/dL (75-110); Sodium 138 mmol/L (137-145)
[2020-12-25 06:00] VITALS: BP 113/61; PULSE 76; RESP 16; TEMP 36.3; O2SAT 94
[2020-12-25 06:23] LABS: Glucose Point of Care 142 mg/dl (65-105)
[2020-12-25 08:00] VITALS: O2SAT 94
[2020-12-25] MEDS: metFORMIN HCL 500 MG TABLET PO ×2 (09:37→17:20)
[2020-12-25] MEDS: ASPIRIN 81 MG ENTERIC TABLET PO (09:37)
[2020-12-25] MEDS: LORATADINE 10 MG TABLET PO (09:38)
[2020-12-25] MEDS: polyethylene glycoL 3350 17 GM POWD.PACK PO (09:38)
[2020-12-25] MEDS: FINASTERIDE 5 MG TABLET PO (09:38)
[2020-12-25] MEDS: guaiFENesin 12 HR 600 MG TABCR 1200 MG PO ×2 (09:38→21:46)
[2020-12-25] MEDS: CEFDINIR 300 MG CAPSULE PO ×2 (09:38→21:44)
[2020-12-25] MEDS: FLUTICASONE PROPIONATE 0.05% NA SPR 16 GM BTL (*BKC) 1 SPRAY NASAL ×2 (09:38→21:43)
[2020-12-25] MEDS: MAGNESIUM HYDROXIDE SUSP 30 ML UDC 15 ML PO (09:38)
[2020-12-25] MEDS: TAMSULOSIN HCL 0.4 MG CAPSULE PO (09:38)
[2020-12-25] MEDS: ENOXAPARIN 40 MG/0.4 ML SYRINGE SUB-Q (09:39)
--- NOTE | 2020-12-25 11:41 | WPDNEURORHBP ---
Subjective Date/time seen: 12/25/20 11:41 Interval history: Patient is a 70 year old male with a past medical history of BPH, Hep C, COPD, DM2, Hypotonic bladder, chronic respiratory failure with home O2 that was sent to the rehab facility for rehab after fracturing his left femoral neck. Patient stated that this happened about a week or so ago and that his hip was repaired last Sunday at [facility]. He did say that he was feeling ok today, but all in all not the best. He said that today is the first day that everything is starting and that he knows he is going to have some aches and pains. He also mentioned that he is worried about his COPD and that he wears 3LNC with activity and and 2L at night. While at rest he does not wear anything. He is also concerned about the medications that he is taking along with the interaction of them together. He is currently sitting in the wheel chair, awaiting someone to bring him a suppository. He said that he knows he is constipated because of the pain medications. He also stated that he has BPH and a hypotonic bladder that he straight caths himself before bed. Throughout the day he is able to urinate. He stated that it is still rough but he makes it work. She denies chest pain, shortness of breath, nausea, vomiting, diarrhea, constipation, numbness tingling, sweats, chills. 12/20/20 Patient has no complaints today. He said that he is doing the best he can. He also stated that the constipation is being more controlled with the medications that he is given. He did say that when he is at home he walks around the yard for 25 minutes, lifts light weights of 7 sets of 10 reps of bench press. He has no other complaints at this time including chest pain or shortness of breath. He is still self cathing when needed. 12/21/20 Team conference patient is able to perform self caths. Patient is continent of bowel. Patient is on stool softeners due to his chronic constipation. Patient is on Lovenox . Patient is at standby to contact guard with transfers.He is ambulating 100 ft with contact guard using a wheeled walker. Stairs are requiring min assistance He requires mod assistance for shoe donning and doffing. He is contact guard to standby assistance for rest of ADLs. Pain management will be scheduled Tylenol. Patient has been counseled to decrease his use of Percocet. 12/22/20 Patient does require cues for safety and at times is impulsive. Tentative discharge dates possibly end of this week beginning of next week. Patient will require ADL equipment and a bath bench. Patient has is own wheeled walker. 12/23/20 patient is seen during physical therapy. Patient is at supervision for transfers. He requires supervision to min assist with gait. Patient does need reminders for safety and sequencing. Patient voices minimal complaints to the left hip. 12/24/20 Patient seen in OT bathing. Patient remains impulsive. Patient voices no complaint. Tentative discharge for Sunday. Review of Systems Review of Systems: All systems reviewed & are unremarkable except as noted in HPI and below Constitutional: Constitutional: Reports no additional constitutional complaints Cardiovascular: Cardiovascular: Reports no additional cardiovascular complaints, Reports dyspnea and Reports dyspnea on exertion Respiratory: Respiratory: Reports chest congestion, Reports cough, Reports dyspnea and Reports dyspnea on exertion Gastrointestinal: Gastrointestinal: Reports constipation (chronic) Functional Status Ambulation Ability Ability to Ambulate 10 Feet: Independent Ability to Ambulate 50 Feet With 2 Turns: Independent Ability to Ambulate 150 Feet: Independent Ambulation Assistive Devices: Walker, Wheeled Transfers Ability Ability to Transfer In/Out of Chair: Independent Exam Narrative: Exam Narrative: Head is normocephalic. Extraocular muscles are intact. Pupils are equal reactive light and accommodation. Speech is fluent.
[2020-12-25 14:00] VITALS: BP 100/75; PULSE 68; RESP 18; TEMP 36; O2SAT 100
[2020-12-25 20:00] VITALS: PULSE 75; RESP 16; O2SAT 92
[2020-12-25] MEDS: SENNA/DOCUSATE SODIUM TABLET 1 TAB PO (21:46)
[2020-12-25] MEDS: ROSUVASTATIN 5 MG TABLET PO (21:47)
[2020-12-25 22:00] VITALS: BP 111/65; PULSE 75; RESP 16; TEMP 36; O2SAT 92
[2020-12-26] MEDS: ACETAMINOPHEN 500 MG TABLET 1000 MG PO ×4 (00:13→17:31)
[2020-12-26 06:00] VITALS: BP 97/57; PULSE 70; RESP 16; TEMP 35.9; O2SAT 98
[2020-12-26 06:27] LABS: Glucose Point of Care 113 mg/dl (65-105)
[2020-12-26 08:00] VITALS: PULSE 70; RESP 16; O2SAT 98
--- NOTE | 2020-12-26 08:38 | WPDNEURORHBP ---
Subjective Date/time seen: 12/26/20 08:38 Interval history: Patient is a 70 year old male with a past medical history of BPH, Hep C, COPD, DM2, Hypotonic bladder, chronic respiratory failure with home O2 that was sent to the rehab facility for rehab after fracturing his left femoral neck. Patient stated that this happened about a week or so ago and that his hip was repaired last Sunday at [facility]. He did say that he was feeling ok today, but all in all not the best. He said that today is the first day that everything is starting and that he knows he is going to have some aches and pains. He also mentioned that he is worried about his COPD and that he wears 3LNC with activity and and 2L at night. While at rest he does not wear anything. He is also concerned about the medications that he is taking along with the interaction of them together. He is currently sitting in the wheel chair, awaiting someone to bring him a suppository. He said that he knows he is constipated because of the pain medications. He also stated that he has BPH and a hypotonic bladder that he straight caths himself before bed. Throughout the day he is able to urinate. He stated that it is still rough but he makes it work. She denies chest pain, shortness of breath, nausea, vomiting, diarrhea, constipation, numbness tingling, sweats, chills. 12/20/20 Patient has no complaints today. He said that he is doing the best he can. He also stated that the constipation is being more controlled with the medications that he is given. He did say that when he is at home he walks around the yard for 25 minutes, lifts light weights of 7 sets of 10 reps of bench press. He has no other complaints at this time including chest pain or shortness of breath. He is still self cathing when needed. 12/21/20 Team conference patient is able to perform self caths. Patient is continent of bowel. Patient is on stool softeners due to his chronic constipation. Patient is on Lovenox . Patient is at standby to contact guard with transfers.He is ambulating 100 ft with contact guard using a wheeled walker. Stairs are requiring min assistance He requires mod assistance for shoe donning and doffing. He is contact guard to standby assistance for rest of ADLs. Pain management will be scheduled Tylenol. Patient has been counseled to decrease his use of Percocet. 12/22/20 Patient does require cues for safety and at times is impulsive. Tentative discharge dates possibly end of this week beginning of next week. Patient will require ADL equipment and a bath bench. Patient has is own wheeled walker. 12/23/20 patient is seen during physical therapy. Patient is at supervision for transfers. He requires supervision to min assist with gait. Patient does need reminders for safety and sequencing. Patient voices minimal complaints to the left hip. 12/24/20 Patient seen in OT bathing. Patient remains impulsive. Patient voices no complaint. Tentative discharge for Sunday. 12/25/20 Patient seen in hallway walking with PT. No complaints 12/26/20 No complaints. Patient feeling prepared for discharge on Sunday. Review of Systems Review of Systems: All systems reviewed & are unremarkable except as noted in HPI and below Functional Status Ambulation Ability Ability to Ambulate 10 Feet: Independent Ability to Ambulate 50 Feet With 2 Turns: Independent Ability to Ambulate 150 Feet: Independent Ambulation Assistive Devices: Walker, Wheeled Transfers Ability Ability to Transfer In/Out of Chair: Independent Exam Narrative: Exam Narrative: Head is normocephalic. Extraocular muscles are intact. Pupils are equal reactive light and accommodation. Speech is fluent. Neck is supple. Heart rate and rhythm is regular. Lungs sounds are clear with distant breath sounds. Bruising is noted to the stomach from injection sites. Bilateral upper extremity strength are 4-5 left lower extremity strength is essentially 2/5 and dista
[2020-12-26] MEDS: ENOXAPARIN 40 MG/0.4 ML SYRINGE SUB-Q (09:15)
[2020-12-26] MEDS: ASPIRIN 81 MG ENTERIC TABLET PO (09:15)
[2020-12-26] MEDS: guaiFENesin 12 HR 600 MG TABCR 1200 MG PO ×2 (09:16→20:19)
[2020-12-26] MEDS: LORATADINE 10 MG TABLET PO (09:16)
[2020-12-26] MEDS: CEFDINIR 300 MG CAPSULE PO ×2 (09:16→20:19)
[2020-12-26] MEDS: FLUTICASONE PROPIONATE 0.05% NA SPR 16 GM BTL (*BKC) 1 SPRAY NASAL ×2 (09:16→20:20)
[2020-12-26] MEDS: metFORMIN HCL 500 MG TABLET PO ×2 (09:16→17:31)
[2020-12-26] MEDS: polyethylene glycoL 3350 17 GM POWD.PACK PO (09:16)
[2020-12-26] MEDS: FINASTERIDE 5 MG TABLET PO (09:17)
[2020-12-26] MEDS: TAMSULOSIN HCL 0.4 MG CAPSULE PO (09:17)
[2020-12-26 14:00] VITALS: BP 109/64; PULSE 98; RESP 18; TEMP 36.1; O2SAT 100
[2020-12-26] MEDS: ROSUVASTATIN 5 MG TABLET PO (20:19)
[2020-12-26 22:00] VITALS: BP 120/66; PULSE 72; RESP 20; TEMP 35.9; O2SAT 100
[2020-12-27] MEDS: ACETAMINOPHEN 500 MG TABLET 1000 MG PO ×4 (00:58→17:26)
[2020-12-27 06:00] VITALS: BP 95/58; PULSE 70; RESP 20; TEMP 35.7; O2SAT 100
[2020-12-27 06:28] LABS: Glucose Point of Care 109 mg/dl (65-105)
--- NOTE | 2020-12-27 07:02 | P.PNIM_ITS ---
Progress Note: A&P Assessment and Plan (1) History of total left hip replacement: Code(s): Z96.642 - Presence of left artificial hip joint Status: Acute Assessment and Plan: * Here for rehab * PT/OT * Managed by the rehab center (2) Hyperlipidemia: Code(s): E78.5 - Hyperlipidemia, unspecified Status: Acute Assessment and Plan: * Continue home Rosuvastatin (3) Chronic respiratory failure: Code(s): J96.10 - Chronic respiratory failure, unspecified whether with hypoxia or hypercapnia Status: Acute Assessment and Plan: * 3L NC with activity, 2L at night * Continue home Symbicort 2 puff q12hr * Albuterol inhaler 2 puffs Q4 PRN * Feeling well at this time. No worsening shortness of breath or respiratory symptoms. (4) Diabetes mellitus, type II: Code(s): E11.9 - Type 2 diabetes mellitus without complications Status: Acute Assessment and Plan: * Meformin 500mg PO BID * Accu Check AC/HS * Continue sliding scale * Hypoglycemic protocol in place * adjust medications as needed. (5) BPH (benign prostatic hyperplasia): Code(s): N40.0 - Benign prostatic hyperplasia without lower urinary tract symptoms Status: Acute Assessment and Plan: * Continue home finasteride 5mg PO daily and Tamsulosin 0.4mg PO daily * Straight cath at night * I&O (6) Acute on chronic respiratory failure with hypoxia and hypercapnia: Code(s): J96.21 - Acute and chronic respiratory failure with hypoxia; J96.22 - Acute and chronic respiratory failure with hypercapnia Status: Acute Assessment and Plan: * See above (7) COPD (chronic obstructive pulmonary disease): Code(s): J44.9 - Chronic obstructive pulmonary disease, unspecified Status: Acute Assessment and Plan: * 3L NC with activity, 2L at night * Adjust supplemental oxygen to maintain a saturation of 88-92% * Continue home Symbicort 2 puff q12hr * Albuterol inhaler 2 puffs Q4 PRN * Stable at this time. (8) Constipation: Code(s): K59.00 - Constipation, unspecified Status: Acute Assessment and Plan: * Continue Miralax and Senokot daily * Lactulose enema PRN Time Spent With Patient Time with patient: 25 - 35 minutes Subjective Date/time seen: 12/27/20 07:02 THIS NOTE IS FROM 12/24/20 it was not completed at time of visit Interval history: Patient is a 70 year old male with a past medical history of BPH, Hep C, COPD, DM2, Hypotonic bladder, chronic respiratory failure with home O2 that was sent to the rehab facility for rehab after fracturing his left femoral neck. Date of Service 12/24/20: the patient reports feeling well at this time. He denies any worsening SOB, cough, fever, chills. The patient states his hip pain is well controlled at this time. He denies any fevers, chills, cough, chest pain, nausea, vomiting, abdominal pain, leg swelling, calf pain, lighthe adedness, dizziness, or any other symptoms at this time Review of Systems Review of Systems: All systems reviewed & are unremarkable except as noted in HPI and below Exam Narrative: Exam Narrative: General: 70-year-old male laying in bed watching TV, resting comfortably on room air. Appears comfortable. In no acute distress. Skin: No jaundice or c
--- NOTE | 2020-12-27 07:02 | PM.IMPN ---
Progress Note: A&P Assessment and Plan (1) History of total left hip replacement: Code(s): Z96.642 - Presence of left artificial hip joint Status: Acute Assessment and Plan: Here for rehab PT/OT Managed by the rehab center (2) Hyperlipidemia: Code(s): E78.5 - Hyperlipidemia, unspecified Status: Acute Assessment and Plan: Continue home Rosuvastatin (3) Chronic respiratory failure: Code(s): J96.10 - Chronic respiratory failure, unspecified whether with hypoxia or hypercapnia Status: Acute Assessment and Plan: 3L NC with activity, 2L at night Continue home Symbicort 2 puff q12hr Albuterol inhaler 2 puffs Q4 PRN Feeling well at this time. No worsening shortness of breath or respiratory symptoms. (4) Diabetes mellitus, type II: Code(s): E11.9 - Type 2 diabetes mellitus without complications Status: Acute Assessment and Plan: Meformin 500mg PO BID Accu Check AC/HS Continue sliding scale Hypoglycemic protocol in place adjust medications as needed. (5) BPH (benign prostatic hyperplasia): Code(s): N40.0 - Benign prostatic hyperplasia without lower urinary tract symptoms Status: Acute Assessment and Plan: Continue home finasteride 5mg PO daily and Tamsulosin 0.4mg PO daily Straight cath at night I&O (6) Acute on chronic respiratory failure with hypoxia and hypercapnia: Code(s): J96.21 - Acute and chronic respiratory failure with hypoxia; J96.22 - Acute and chronic respiratory failure with hypercapnia Status: Acute Assessment and Plan: See above (7) COPD (chronic obstructive pulmonary disease): Code(s): J44.9 - Chronic obstructive pulmonary disease, unspecified Status: Acute Assessment and Plan: 3L NC with activity, 2L at night Adjust supplemental oxygen to maintain a saturation of 88-92% Continue home Symbicort 2 puff q12hr Albuterol inhaler 2 puffs Q4 PRN Stable at this time. (8) Constipation: Code(s): K59.00 - Constipation, unspecified Status: Acute Assessment and Plan: Continue Miralax and Senokot daily Lactulose enema PRN Time Spent With Patient Time with patient: 25 - 35 minutes Subjective Date/time seen: 12/27/20 07:02 THIS NOTE IS FROM 12/24/20 it was not completed at time of visit Interval history: Patient is a 70 year old male with a past medical history of BPH, Hep C, COPD, DM2, Hypotonic bladder, chronic respiratory failure with home O2 that was sent to the rehab facility for rehab after fracturing his left femoral neck. Date of Service 12/24/20: the patient reports feeling well at this time. He denies any worsening SOB, cough, fever, chills. The patient states his hip pain is well controlled at this time. He denies any fevers, chills, cough, chest pain, nausea, vomiting, abdominal pain, leg swelling, calf pain, lightheadedness, dizziness, or any other symptoms at this time Review of Systems Review of Systems: All systems reviewed & are unremarkable except as noted in HPI and below Exam Narrative: Exam Narrative: General: 70-year-old male laying in bed watching TV, resting comfortably on room air. Appears comfortable. In no acute distress. Skin: No jaundice or cyanosis. Good skin turgor. Neck: Full range of motion. Supple. Respiratory: Lungs are clear to auscultation bilaterally. No wheezing, rales or rhonchi. No bony chest wall tenderness. Cardiovascular: The heart has a regular rate and rhythm without murmur. Lower extremities: No lower extremity edema. Distal pulses are easily palpated. No calf tenderness to palpation. Gastrointestinal: The abdomen is soft, nontender and nondistended with active bowel sounds. Psychiatric: Lucid and oriented. Memory intact. Neurologic: No focal deficits. Speech is clear. No
[2020-12-27 08:00] VITALS: PULSE 70; RESP 20; O2SAT 100
[2020-12-27] MEDS: ASPIRIN 81 MG ENTERIC TABLET PO (09:51)
[2020-12-27] MEDS: FINASTERIDE 5 MG TABLET PO (09:51)
[2020-12-27] MEDS: TAMSULOSIN HCL 0.4 MG CAPSULE PO (09:51)
[2020-12-27] MEDS: CEFDINIR 300 MG CAPSULE PO (09:51)
[2020-12-27] MEDS: ENOXAPARIN 40 MG/0.4 ML SYRINGE SUB-Q (09:51)
[2020-12-27] MEDS: FLUTICASONE PROPIONATE 0.05% NA SPR 16 GM BTL (*BKC) 1 SPRAY NASAL ×2 (09:51→21:29)
[2020-12-27] MEDS: guaiFENesin 12 HR 600 MG TABCR 1200 MG PO ×2 (09:51→21:30)
[2020-12-27] MEDS: metFORMIN HCL 500 MG TABLET PO ×2 (09:51→17:26)
[2020-12-27] MEDS: polyethylene glycoL 3350 17 GM POWD.PACK PO (09:52)
[2020-12-27] MEDS: LORATADINE 10 MG TABLET PO (09:52)
--- NOTE | 2020-12-27 10:00 | WPDNEURORHBP ---
Subjective Date/time seen: 12/27/20 10:00 Interval history: Patient is a 70 year old male with a past medical history of BPH, Hep C, COPD, DM2, Hypotonic bladder, chronic respiratory failure with home O2 that was sent to the rehab facility for rehab after fracturing his left femoral neck. Patient stated that this happened about a week or so ago and that his hip was repaired last Sunday at [facility]. He did say that he was feeling ok today, but all in all not the best. He said that today is the first day that everything is starting and that he knows he is going to have some aches and pains. He also mentioned that he is worried about his COPD and that he wears 3LNC with activity and and 2L at night. While at rest he does not wear anything. He is also concerned about the medications that he is taking along with the interaction of them together. He is currently sitting in the wheel chair, awaiting someone to bring him a suppository. He said that he knows he is constipated because of the pain medications. He also stated that he has BPH and a hypotonic bladder that he straight caths himself before bed. Throughout the day he is able to urinate. He stated that it is still rough but he makes it work. She denies chest pain, shortness of breath, nausea, vomiting, diarrhea, constipation, numbness tingling, sweats, chills. 12/20/20 Patient has no complaints today. He said that he is doing the best he can. He also stated that the constipation is being more controlled with the medications that he is given. He did say that when he is at home he walks around the yard for 25 minutes, lifts light weights of 7 sets of 10 reps of bench press. He has no other complaints at this time including chest pain or shortness of breath. He is still self cathing when needed. 12/21/20 Team conference patient is able to perform self caths. Patient is continent of bowel. Patient is on stool softeners due to his chronic constipation. Patient is on Lovenox . Patient is at standby to contact guard with transfers.He is ambulating 100 ft with contact guard using a wheeled walker. Stairs are requiring min assistance He requires mod assistance for shoe donning and doffing. He is contact guard to standby assistance for rest of ADLs. Pain management will be scheduled Tylenol. Patient has been counseled to decrease his use of Percocet. 12/22/20 Patient does require cues for safety and at times is impulsive. Tentative discharge dates possibly end of this week beginning of next week. Patient will require ADL equipment and a bath bench. Patient has is own wheeled walker. 12/23/20 patient is seen during physical therapy. Patient is at supervision for transfers. He requires supervision to min assist with gait. Patient does need reminders for safety and sequencing. Patient voices minimal complaints to the left hip. 12/24/20 Patient seen in OT bathing. Patient remains impulsive. Patient voices no complaint. Tentative discharge for Sunday. 12/25/20 Patient seen in hallway walking with PT. No complaints 12/26/20 No complaints. Patient feeling prepared for discharge on Sunday12/27/2020 Patient feels ready for discharge tomorrow. He has had issues with chronic constipation. Patient is receptive to going home on MiraLax. With the aggressive bowel program, patient has had some loose stools. It is now under control. Home meds were reviewed with patient in all questions were answered. Patient will not require any opioids and will go home on Tylenol for pain. Patient will resume all his home meds with the addition of Lovenox 40 mg daily for 7 days and Miralax.. Patient will follow up with Dr. Goodson at [facility] on December 30 at 8:30 a.m.. Most likely mikey will be discontinued at that time Review of Systems Review of Systems: All systems reviewed & are unremarkable except as noted in HPI and below Functional Status Ambulation Ability Ability to Ambulate 10 Feet: Independent Ab
[2020-12-27 11:00] VITALS: PULSE 102; O2SAT 98
--- NOTE | 2020-12-27 12:33 | P.PNIM_ITS ---
Progress Note: A&P Assessment and Plan (1) Constipation: Code(s): K59.00 - Constipation, unspecified Status: Acute Assessment and Plan: Patient having some soft stools the last few days * Continue Miralax daily AM and Colace twice daily * PRN options available as needed * Lactulose enema PRN (2) History of total left hip replacement: Code(s): Z96.642 - Presence of left artificial hip joint Status: Acute Assessment and Plan: * Here for rehab * PT/OT * Managed by the rehab center (3) Hyperlipidemia: Code(s): E78.5 - Hyperlipidemia, unspecified Status: Acute Assessment and Plan: * Continue home Rosuvastatin (4) Chronic respiratory failure: Code(s): J96.10 - Chronic respiratory failure, unspecified whether with hypoxia or hypercapnia Status: Acute Assessment and Plan: * 3L NC with activity, 2L at night, no oxygen at rest. * Continue home Symbicort 2 puff q12hr * Albuterol inhaler 2 puffs Q4 PRN * Feeling well at this time. No worsening shortness of breath or respiratory symptoms. (5) Diabetes mellitus, type II: Code(s): E11.9 - Type 2 diabetes mellitus without complications Status: Acute Assessment and Plan: * Meformin 500mg PO BID * Accu Check AC/HS * Continue sliding scale * Hypoglycemic protocol in place * adjust medications as needed. (6) BPH (benign prostatic hyperplasia): Code(s): N40.0 - Benign prostatic hyperplasia without lower urinary tract symptoms Status: Acute Assessment and Plan: * Continue home finasteride 5mg PO daily and Tamsulosin 0.4mg PO daily * Straight cath at night * I&O (7) Acute on chronic respiratory failure with hypoxia and hypercapnia: Code(s): J96.21 - Acute and chronic respiratory failure with hypoxia; J96.22 - Acute and chronic respiratory failure with hypercapnia Status: Acute Assessment and Plan: * See above (8) COPD (chronic obstructive pulmonary disease): Code(s): J44.9 - Chronic obstructive pulmonary disease, unspecified Status: Acute Assessment and Plan: * 3L NC with activity, 2L at night, no oxygen at rest. * Adjust supplemental oxygen to maintain a saturation of 90-95% * Continue home Symbicort 2 puff q12hr * Albuterol inhaler 2 puffs Q4 PRN * Stable at this time. Time Spent With Patient Time with patient: 25 - 35 minutes Subjective Date/time seen: 12/27/20 12:33 Interval history: Patient is a 70 year old male with a past medical history of BPH, Hep C, COPD, DM2, Hypotonic bladder, chronic respiratory failure with home O2 that was sent to the rehab facility for rehab after fracturing his left femoral neck. Date of Service 12/27/20: The patient reports feeling well at this time. He has had loose stools yesterday and this morning. He denies any worsening SOB, cough, fever, chills. The patient states his hip pain is well controlled at this time. He denies any fevers, chills, cough, chest pain, nausea, vomiting, abdominal pain, leg swelling, calf pain, lightheadedness, dizziness, or any other symptoms at this time. he is anxious to be discharged home hopefully priscilla orrow. Review of Systems Review of Systems: All systems reviewed & are unremarkable except as noted in HPI and below Exam Narrative: Exam Narrative: General: 70
--- NOTE | 2020-12-27 12:33 | PM.IMPN ---
Progress Note: A&P Assessment and Plan (1) Constipation: Code(s): K59.00 - Constipation, unspecified Status: Acute Assessment and Plan: Patient having some soft stools the last few days Continue Miralax daily AM and Colace twice daily PRN options available as needed Lactulose enema PRN (2) History of total left hip replacement: Code(s): Z96.642 - Presence of left artificial hip joint Status: Acute Assessment and Plan: Here for rehab PT/OT Managed by the rehab center (3) Hyperlipidemia: Code(s): E78.5 - Hyperlipidemia, unspecified Status: Acute Assessment and Plan: Continue home Rosuvastatin (4) Chronic respiratory failure: Code(s): J96.10 - Chronic respiratory failure, unspecified whether with hypoxia or hypercapnia Status: Acute Assessment and Plan: 3L NC with activity, 2L at night, no oxygen at rest. Continue home Symbicort 2 puff q12hr Albuterol inhaler 2 puffs Q4 PRN Feeling well at this time. No worsening shortness of breath or respiratory symptoms. (5) Diabetes mellitus, type II: Code(s): E11.9 - Type 2 diabetes mellitus without complications Status: Acute Assessment and Plan: Meformin 500mg PO BID Accu Check AC/HS Continue sliding scale Hypoglycemic protocol in place adjust medications as needed. (6) BPH (benign prostatic hyperplasia): Code(s): N40.0 - Benign prostatic hyperplasia without lower urinary tract symptoms Status: Acute Assessment and Plan: Continue home finasteride 5mg PO daily and Tamsulosin 0.4mg PO daily Straight cath at night I&O (7) Acute on chronic respiratory failure with hypoxia and hypercapnia: Code(s): J96.21 - Acute and chronic respiratory failure with hypoxia; J96.22 - Acute and chronic respiratory failure with hypercapnia Status: Acute Assessment and Plan: See above (8) COPD (chronic obstructive pulmonary disease): Code(s): J44.9 - Chronic obstructive pulmonary disease, unspecified Status: Acute Assessment and Plan: 3L NC with activity, 2L at night, no oxygen at rest. Adjust supplemental oxygen to maintain a saturation of 90-95% Continue home Symbicort 2 puff q12hr Albuterol inhaler 2 puffs Q4 PRN Stable at this time. Time Spent With Patient Time with patient: 25 - 35 minutes Subjective Date/time seen: 12/27/20 12:33 Interval history: Patient is a 70 year old male with a past medical history of BPH, Hep C, COPD, DM2, Hypotonic bladder, chronic respiratory failure with home O2 that was sent to the rehab facility for rehab after fracturing his left femoral neck. Date of Service 12/27/20: The patient reports feeling well at this time. He has had loose stools yesterday and this morning. He denies any worsening SOB, cough, fever, chills. The patient states his hip pain is well controlled at this time. He denies any fevers, chills, cough, chest pain, nausea, vomiting, abdominal pain, leg swelling, calf pain, lightheadedness, dizziness, or any other symptoms at this time. he is anxious to be discharged home hopefully tomorrow. Review of Systems Review of Systems: All systems reviewed & are unremarkable except as noted in HPI and below Exam Narrative: Exam Narrative: General: 70-year-old male sitting in a wheelchair being rolled down the schroeder with PT/OT, resting comfortably on 3L via NC. Appears comfortable. In no acute distress. Skin: No jaundice or cyanosis. Good skin turgor. Neck: Full range of motion. Supple. Respiratory: Lungs are clear to auscultation bilaterally. No wheezing, rales or rhonchi. No bony chest wall tenderness. Cardiovascular: The heart has a regular rate and rhythm without murmur. Gastrointestinal: The abdomen is soft, nontender and nondistended with active bowel sounds. Psychiatric: Lucid and oriente
[2020-12-27 14:00] VITALS: BP 118/66; PULSE 85; RESP 18; TEMP 36.1; O2SAT 100
[2020-12-27 20:00] VITALS: PULSE 77; RESP 16; O2SAT 100
[2020-12-27] MEDS: ROSUVASTATIN 5 MG TABLET PO (21:30)
[2020-12-27 22:00] VITALS: BP 119/73; PULSE 77; RESP 16; TEMP 36.6; O2SAT 100
[2020-12-28] MEDS: ACETAMINOPHEN 500 MG TABLET 1000 MG PO ×2 (00:17→06:08)
[2020-12-28 06:00] VITALS: BP 94/54; PULSE 71; RESP 16; TEMP 36.1; O2SAT 92
[2020-12-28 06:51] LABS: Glucose Point of Care 119 mg/dl (65-105)
[2020-12-28] MEDS: ASPIRIN 81 MG ENTERIC TABLET PO (08:25)
[2020-12-28] MEDS: TAMSULOSIN HCL 0.4 MG CAPSULE PO (08:25)
[2020-12-28] MEDS: guaiFENesin 12 HR 600 MG TABCR 1200 MG PO (08:25)
[2020-12-28] MEDS: metFORMIN HCL 500 MG TABLET PO (08:25)
[2020-12-28] MEDS: FINASTERIDE 5 MG TABLET PO (08:25)
[2020-12-28] MEDS: ENOXAPARIN 40 MG/0.4 ML SYRINGE SUB-Q (08:25)
[2020-12-28] MEDS: FLUTICASONE PROPIONATE 0.05% NA SPR 16 GM BTL (*BKC) 1 SPRAY NASAL (08:26)
[2020-12-28] MEDS: LORATADINE 10 MG TABLET PO (08:26)
--- NOTE | 2020-12-28 11:25 | PM.DS ---
DS: Admitting Diagnosis Admitting Diagnosis Admitting Diagnosis: left femur fracture DS: Discharge Diagnosis Discharge Diagnosis (1) BPH (benign prostatic hyperplasia): Code(s): N40.0 - Benign prostatic hyperplasia without lower urinary tract symptoms Status: Acute Assessment and Plan: Flomax 0.4 mg daily, Proscar 5 mg daily (2) Acute on chronic respiratory failure with hypoxia and hypercapnia: Code(s): J96.21 - Acute and chronic respiratory failure with hypoxia; J96.22 - Acute and chronic respiratory failure with hypercapnia Status: Acute Assessment and Plan: will obtain chest x-ray for baseline and due to new onset congestion (3) COPD exacerbation: Code(s): J44.1 - Chronic obstructive pulmonary disease with (acute) exacerbation Status: Acute Assessment and Plan: O2 dependent add Mucinex (4) Former smoker: Code(s): Z87.891 - Personal history of nicotine dependence Status: Acute Assessment and Plan: on chronic oxygen (5) Diabetes mellitus, type II: Code(s): E11.9 - Type 2 diabetes mellitus without complications Status: Acute Assessment and Plan: metformin 500 mg b.i.d. (6) Chronic respiratory failure: Code(s): J96.10 - Chronic respiratory failure, unspecified whether with hypoxia or hypercapnia Status: Acute Assessment and Plan: Symicort Add Mucinex (7) History of total left hip replacement: Code(s): Z96.642 - Presence of left artificial hip joint Status: Acute Assessment and Plan: PT OT Tylenol a 1000 units Q 6 hours scheduled (8) Drainage from surgical wound: Status: Acute Assessment and Plan: Cefinir for 10 days (9) Hyperlipidemia: Code(s): E78.5 - Hyperlipidemia, unspecified Status: Acute Assessment and Plan: Genny DS: Summary Hospital Course Reason for hospitalization: GOALS: Eating [INDEPENDENT] Oral Care [INDEPENDENT] Toileting Hygiene [INDEPENDENT] Shower/Bathing setup Upper Body Dressing [INDEPENDENT] Lower Body Dressing [INDEPENDENT] Donning/[place] Footwear [INDEPENDENT] Rolling Left and Right supervision Sit to Lying [INDEPENDENT] Lying to Sitting [INDEPENDENT] Sit to Stand [INDEPENDENT] Bed to Chair Transfers [INDEPENDENT] Toilet Transfers [INDEPENDENT] Car Transfers [INDEPENDENT] Walking 10' [INDEPENDENT] Walking 50' with Two Turns [INDEPENDENT] Walking 150' [INDEPENDENT] Curb or Step [INDEPENDENT] 4 Steps [INDEPENDENT] 12 Steps [INDEPENDENT] Picking Up Object [INDEPENDENT] [Wheelchair Mobility 50'] not assessed [Wheelchair Mobility 150'] not assessed DISCHARGE PERFORMANCE: Eating [INDEPENDENT] Oral Care [INDEPENDENT] Toileting Hygiene [INDEPENDENT] Shower/Bathing setup Upper Body Dressing [INDEPENDENT] Lower Body Dressing [INDEPENDENT] Donning/[place] Footwear [INDEPENDENT] Rolling Left and Right [INDEPENDENT] Sit to Lying [INDEPENDENT] Lying to Sitting [INDEPENDENT] Sit to Stand [INDEPENDENT] Bed to Chair Transfers [INDEPENDENT] Toilet Transfers [INDEPENDENT] Car Transfers [INDEPENDENT] Walking 10' [INDEPENDENT] Walking 50' with Two Turns [INDEPENDENT] Walking 150' [INDEPENDENT] Curb or Step [INDEPENDENT] 4 Steps [INDEPENDENT] 12 Steps unable Picking Up Object [INDEPENDENT] [Wheelchair Mobility 50'] not assessed [Wheelchair Mobility 150'] not assessed The patient had [no falls]. Hospital Course: Interval history: Patient is a 70 year old male with a past medical history of BPH, Hep C, COPD, DM2, Hypotonic bladder, chronic respiratory failure with home O2 that was sent to the rehab facility for rehab after fracturing his left femoral neck. Patient stated that this happened about a week or so ago and that his hip was repaired last Sunday at [facility]. He did say that he was feeling ok today, but all in all not the best. He said that today is the first day that everything is
== END 2020-12-28 12:32 | disposition home health service (06) | DRG 561 ==
PROVIDERS: Admitting Provider Physical Medicine & Rehabilitation; PCP Nurse Practitioner; Visit Provider Physical Medicine & Rehabilitation
DX: Z47.1 Aftercare following joint replacement surgery (principal); S72.012D Unspecified intracapsular fracture of left femur, subsequent encounter for closed fracture with routine healing; W19.XXXD Unspecified fall, subsequent encounter; Z96.642 Presence of left artificial hip joint; N40.0 Benign prostatic hyperplasia without lower urinary tract symptoms; E11.9 Type 2 diabetes mellitus without complications; E78.5 Hyperlipidemia, unspecified; J32.9 Chronic sinusitis, unspecified; K21.9 Gastro-esophageal reflux disease without esophagitis; K58.9 Irritable bowel syndrome, unspecified; J43.9 Emphysema, unspecified; M54.12 Radiculopathy, cervical region; N31.2 Flaccid neuropathic bladder, not elsewhere classified; Z86.19 Personal history of other infectious and parasitic diseases; Z99.81 Dependence on supplemental oxygen; Z85.828 Personal history of other malignant neoplasm of skin; Z87.891 Personal history of nicotine dependence; Z79.4 Long term (current) use of insulin; K59.09 Other constipation
CPT/HCPCS: 36415; 80053; 82948; 83036; 85025; 94640; 97110; 97116; 97162; 97165; 97530; 97535; 97542; A9270; J1650

== ENCOUNTER 2023-11-27 13:30 | Outpatient (RCR) | payer OTHER, SELFPAY ==
[2023-07-31 15:48] VITALS: BP 132/82; PULSE 109; RESP 20; O2SAT 96
[2023-07-31 15:50] VITALS: PULSE 109
== END 2023-11-27 23:59 | disposition home or self-care (01) ==
LOC: ANHCPREHAB 13:30
PROVIDERS: PCP Nurse Practitioner; Visit Provider Student in an Organized Health Care Education/Training Program
DX: J43.9 Emphysema, unspecified (principal)
CPT/HCPCS: 94625

== ENCOUNTER 2023-12-28 13:30 | Outpatient (RCR) | payer OTHER, SELFPAY ==
[2023-11-29 00:04] VITALS: BP 132/82; PULSE 109; RESP 20; O2SAT 96
== END 2024-01-22 14:41 | disposition home or self-care (01) ==
LOC: ANHCPREHAB 13:30
PROVIDERS: PCP Nurse Practitioner; Visit Provider Student in an Organized Health Care Education/Training Program
DX: J43.9 Emphysema, unspecified (principal)
CPT/HCPCS: G0239

== ENCOUNTER 2024-02-06 12:52 | Outpatient (CLI) | payer OTHER, SELFPAY ==
--- NOTE | 2024-02-06 16:34 | WPDSIXMINUTE ---
Six Minute Walk Procedure Procedure Performed Pulmonary Stress Test (6 min walk) Six Minute Walk Six Minute Walk: This is a 6 minute walk test. The test was performed and interpreted in accordance with the 2014 ERS/ATS task force guidelines. Of note the patient walked on his home oxygen of 3 L nasal cannula oxygen and used to walking aid. Findings: The patient's resting 3 L NC oxygen saturation measured by pulse oximetry was 96% and heart rate was 110 bpm. Patient ambulated for 305 meters and oxygen saturation remained 90 to 94%. Heart rate at the end of the study was 152 bpm. The patient demonstrated no hypoxemia on 3 L nasal cannula at rest and with ambulation. There are no prior studies for comparison.
== END 2024-02-06 12:53 | disposition home or self-care (01) ==
LOC: ANHPFT 12:56
PROVIDERS: PCP Nurse Practitioner; Visit Provider Student in an Organized Health Care Education/Training Program
DX: J43.9 Emphysema, unspecified (principal)
CPT/HCPCS: 94618

== ENCOUNTER 2024-03-07 12:59 | Emergency (ER) | payer OTHER, SELFPAY ==
[2024-03-07 13:15] VITALS: BP 113/73; PULSE 120; RESP 15; TEMP 36.8; O2SAT 96
[2024-03-07 13:34] LABS: EDUAAPPEAR Cloudy; EDUABILI Negative; EDUABLOOD 1+; EDUACOLOR1 Yellow; EDUAGLUCOSE Negative; EDUAKETONE Negative; EDUALEUKO 1+; EDUANITRATE Negative; EDUAPH 7.5; EDUAPROTEIN Negative; EDUASPGRAVITY 1.015; EDUAUROBILI 0.2
--- NOTE | 2024-03-07 13:45 | ED.MALEGU ---
HPI - Male Genitourinary General Chief complaint: Urogenital-Male Stated complaint: UTI Time Seen by Provider: 03/07/24 13:45 Source: patient Mode of arrival: ambulatory Limitations: no limitations History of Present Illness HPI Narrative: 73-year-old male presents with complaint of bladder pressure and cramping for the past 2-3 days. No other symptoms. Patient self caths. Reports history of multiple urinary tract infection. Afebrile. All systems reviewed and negative except as noted above. Related Data Home Medications Medication Instructions Recorded Confirmed finasteride 5 mg tablet 5 mg PO DAILY 12/24/19 03/07/24 fluticasone propionate 50 1 spray intranasal Q6H PRN 12/24/19 03/07/24 mcg/actuation nasal Shortness Of Breath Or Wheezing spray,suspension (Flonase Allergy Relief) loratadine 10 mg tablet (Claritin) 10 mg PO DAILY 12/24/19 03/07/24 metformin 500 mg tablet 500 mg PO BID 12/24/19 03/07/24 (Glucophage) rosuvastatin 5 mg tablet (Crestor) 5 mg PO HS 12/24/19 03/07/24 tamsulosin 0.4 mg capsule (Flomax) 0.4 mg PO DAILY 12/24/19 03/07/24 albuterol sulfate 2.5 mg/3 mL 2.5 mg inhalation Q4H PRN 12/17/20 03/07/24 (0.083 %) solution for nebulization shortness of breath or wheezing albuterol sulfate 90 mcg/actuation 1 inh inhalation Q4-6H PRN 12/17/20 03/07/24 aerosol inhaler shortness of breath or wheezing aspirin 81 mg tablet,delayed 81 mg PO DAILY 12/17/20 03/07/24 release nitroglycerin 0.4 mg sublingual 0.4 mg sublingual Q5-15M PRN Chest 12/17/20 03/07/24 tablet Pain Allergies Allergy/AdvReac Type Severity Reaction Status Date / Time tetracycline AdvReac Mild Hives Verified 03/07/24 13:03 Review of Systems Review of Systems: CONSTITUTIONAL: Denies fever, chills, or sweats. EYES: Denies visual changes, redness, or discharge. ENT: Denies rhinorrhea, congestion, sore throat, or otalgia. CARDIOVASCULAR: Denies chest pain, palpitations, or edema. RESPIRATORY: Denies cough or dyspnea. GASTROINTESTINAL: Denies abdominal pain, nausea, vomiting, or diarrhea. GENITOURINARY: Denies dysuria or hematuria. Reports bladder pressure and cramping. SKIN: Denies rash or itching. MUSCULOSKELETAL: Denies back pain, joint pain, or myalgia. NEUROLOGIC: Denies headache, numbness, or weakness. PSYCHIATRIC: Denies anxiety or depression. All other systems reviewed are negative, except as documented in HPI. [facility] Past Medical History Medical History Basal cell adenoma Body mass index (bmi) 25.0-25.9, adult (02/13/18) BPH (benign prostatic hyperplasia) Chronic respiratory failure COPD (chronic obstructive pulmonary disease) Diabetes mellitus, type II Emphysema lung Hepatitis C Hip fracture, right History of hepatitis C History of pneumonia History of tobacco abuse Hx of skin malignancy removed on his nose Hyperlipidemia Nocturnal hypoxemia Osteoarthritis Peptic ulcer disease Self-catheterizes urinary bladder Surgical History Surgical History History of back surgery 1998 History of hip surgery right History of total right hip replacement Hx of cholecystectomy Family History Family History (Updated 07/31/23 @ 15:21 by Didi Hsu RN) Sibling Carcinoma of colon Diabetes mellitus Father Family history of lung cancer Mother Family history of emphysema Social History Social History Social History: patient lives alone in a mobile home with 5 steps to enter. He has a 2 wheeled walker, straight cane, and manual wheelchair. Patient still drives and is independent with bathing and dressing. Patient's sister and [id number] lives nearby and can provide assistance. Patient has elected his sister Sruthi Jacobs at [phone] as his surrogate and wishes to be a full code. He also stated that he has three dogs an
== END 2024-03-07 13:52 | disposition home or self-care (01) ==
PROVIDERS: Emergency Provider Nurse Practitioner Family; PCP Nurse Practitioner
DX: N39.0 Urinary tract infection, site not specified (principal); Z87.891 Personal history of nicotine dependence; N40.0 Benign prostatic hyperplasia without lower urinary tract symptoms; J44.9 Chronic obstructive pulmonary disease, unspecified; E11.9 Type 2 diabetes mellitus without complications; E78.5 Hyperlipidemia, unspecified; M19.90 Unspecified osteoarthritis, unspecified site; Z96.641 Presence of right artificial hip joint
CPT/HCPCS: 81003; 87077; 87086; 87088; 87186; 99213; G0463

== ENCOUNTER 2024-11-16 13:23 | Emergency (ER) | payer MEDICARE, MEDICAID, SELFPAY ==
--- NOTE | 2024-11-16 13:25 | ED.EYEPROB ---
HPI - Eye Problem General Chief complaint: Eye Problems Stated complaint: something in eye Time Seen by Provider: 11/16/24 13:25 Source: patient Mode of arrival: ambulatory Limitations: no limitations History of Present Illness HPI Narrative: Alex is a 74-year-old female patient presenting to the clinic today with complaints of a possible foreign body in his left eye. He reports he was sitting down eating lunch when he felt like something got into his left upper medial eyelid. States the eye is watering. Has attempted using some eyedrops to help irrigate the eye without relief. He denies any visual changes Related Data Home Medications Medication Instructions Recorded Confirmed Last Taken Type finasteride 5 mg tablet 5 mg PO DAILY 12/24/19 03/07/24 12/17/20 History fluticasone propionate 50 1 spray intranasal Q6H PRN 12/24/19 03/07/24 Unknown History mcg/actuation nasal Shortness Of Breath Or Wheezing spray,suspension (Flonase Allergy Relief) loratadine 10 mg tablet (Claritin) 10 mg PO DAILY 12/24/19 03/07/24 Unknown History metformin 500 mg tablet 500 mg PO BID 12/24/19 03/07/24 Unknown History (Glucophage) rosuvastatin 5 mg tablet (Crestor) 5 mg PO HS 12/24/19 03/07/24 Unknown History tamsulosin 0.4 mg capsule (Flomax) 0.4 mg PO DAILY 12/24/19 03/07/24 12/17/20 History albuterol sulfate 2.5 mg/3 mL 2.5 mg inhalation Q4H PRN 12/17/20 03/07/24 Unknown History (0.083 %) solution for nebulization shortness of breath or wheezing albuterol sulfate 90 mcg/actuation 1 inh inhalation Q4-6H PRN 12/17/20 03/07/24 Unknown History aerosol inhaler shortness of breath or wheezing aspirin 81 mg tablet,delayed 81 mg PO DAILY 12/17/20 03/07/24 12/17/20 History release nitroglycerin 0.4 mg sublingual 0.4 mg sublingual Q5-15M PRN Chest 12/17/20 03/07/24 Unknown History tablet Pain Allergies Allergy/AdvReac Type Severity Reaction Status Date / Time sulfamethoxazole (From Allergy Mild Hives Verified 11/16/24 14:08 Bactrim) tetracycline Allergy Mild Hives Verified 11/16/24 14:08 trimethoprim (From Bactrim) Allergy Mild Hives Verified 11/16/24 14:08 Review of Systems Review of Systems: Pertinent positives per HPI. Patient denies any fever, chills, rash, headache, visual changes, dizziness, cough, shortness of breath, chest pain, palpitations, nausea, vomiting, diarrhea, constipation, abdominal pain, or any urinary issues. [facility] Past Medical History Medical History Hyperlipidemia History of pneumonia History of hepatitis C Basal cell adenoma Chronic respiratory failure Body mass index (bmi) 25.0-25.9, adult (02/13/18) Nocturnal hypoxemia Osteoarthritis Hip fracture, right Peptic ulcer disease Hepatitis C Diabetes mellitus, type II Self-catheterizes urinary bladder Hx of skin malignancy removed on his nose BPH (benign prostatic hyperplasia) COPD (chronic obstructive pulmonary disease) Emphysema lung History of tobacco abuse Surgical History Surgical History History of total right hip replacement History of hip surgery right History of back surgery 1998 Hx of cholecystectomy Family History Family History Sibling Carcinoma of colon Diabetes mellitus Father Family history of lung cancer Mother Family history of emphysema Social History Social History Social History: patient lives alone in a mobile home with 5 steps to enter. He has a 2 wheeled walker, straight cane, and manual wheelchair. Patient still drives and is independent with bathing and dressing. Patient's sister and [id number] lives nearby and can provide assistance. Patient has elected his sister Sruthi Jacobs at [phone] as his surrogate and wishes to be a full code. He also stated that he has three dogs and his sister lives next door to him. Smoking packs per day: 1 Smoking cigarettes per day: 20.0 Years smoked: 30 Smoking pack-years: 30.00 Smoking status: Former smoker Tobacco type: cigarettes Second hand tobacco smoke exposure: No Alcohol intake: never Substance use: never Substance use type: does not use Living arrangements: alone Additional living arrangements comments: His sister lives next door. Occupation/Education: retired Gender identity (if verbalized by the patient): Male Spiritual care concerns: No Agree to blood products: Yes Comments At the time of my signature, I reviewed and agree with the nursing past medical, surgical, social, and family history. There is no relevant family history pertinent to the patient complaint. Exam Narrative: General: Well-developed, well nourished, in no apparent distress Head: Normocephalic, atraumatic Eyes: Pupils equally round and reactive to light bilaterally, EOM intact, left sclera and conjunctive injected, clear watery discharge to the left eye, lids normal, no obvious foreign body was visualized, Wood's lamp exam was performed and there was no sign of corneal abrasion or globe trauma, sterile wet cotton-tipped applicators used and removed a small foreign body from the left lower eyelid. Ears: TMs intact and clear, ear canals clear, no drainage, grossly hearing normal. Nose: Nares patent, no discharge, no inflammation, no sinus tenderness. Mouth: Oral pharynx without lesions or masses, good dentition, MMM. Neck: Supple, trachea midline, no enlargement of anterior or posterior cervical nodes, no thyroid masses or goiter palpable. Cardio: Regular rate and rhythm, s1 and s2 normal, no murmur appreciated. Resp: Clear to auscultation bilaterally, no rhonchi, rales, wheezing or rubs Course Course Emergency Course: Portions of this record may have been created with voice recognition software. Level of Care: Express Care Visit Vital Signs Vital signs: Vital Signs Temperature 36.7 C 11/16/24 13:38 Pulse Rate 106 H 11/16/24 13:38 Respiratory Rate 20 11/16/24 13:38 Blood Pressure 134/82 11/16/24 13:38 Pulse Oximetry 95 11/16/24 13:38 Oxygen Delivery Nasal Cannula 11/16/24 13:38 Oxygen Flow Rate 3 11/16/24 13:38 Temperature 36.7 C 11/16/24 13:38 Pulse Rate 106 H 11/16/24 13:38 Respiratory Rate 20 11/16/24 13:38 Blood Pressure 134/82 11/16/24 13:38 Pulse Oximetry 95 11/16/24 13:38 Oxygen Delivery Nasal Cannula 11/16/24 13:38 Oxygen Flow Rate 3 11/16/24 13:38 Vital signs reviewed Procedures FB Removal Eye Foreign Body #1: Foreign Body Removal Date: 11/16/24 Location: eye (L) Topical anesthetic used: tetracaine Foreign body: other (Unknown foreign body) Evidence of corneal penetration: No Technique: irrigation, NS and cotton tip swab Procedure performed under: direct visualization with magnification Patient tolerated procedure: well and no complications Foreign Body Removal Narrative: Topical anesthetic was instilled with good anesthesia using 1gtt of opth anesthetic agent (tetracaine). Fluorescein stain of the left eye was performed without uptake of dye. No epithelial defect was noted. No ulcer or dendritic lesions. Upper lid was everted and no FB or lesions were noted. NO Nando sign. Normal saline irrigation eye solution was performed and the patient tolerated the procedure well, sterile wet cotton-tipped applicator was used and small foreign body was seen on the applicator after swabbing the left lower eyelid, no adverse reaction or complications. Noted intraocular pressure readings. MDM - Eye Problem MDM Narrative Medical decision making narrative: At the time of visit patient is resting comfortably on the exam table. Patient appears to be nontoxic. Procedure: Wood's lamp exam was performed in the was no sign of corneal abrasion or globe rupture. No obvious sign of foreign body. Eye was irrigated and sterile wet got back rotators were used to swab the lower eyelid in the upper eyelid and a small foreign body was on the caught tip applicator after swabbing the lower eyelid Plan: I suspect patient possibly had a foreign body in the left eye. Does have eye irritation. Reports symptoms have improved after numbing medication and irrigation. Supportive measures were discussed with the patient and they voiced understanding discharge instructions and agrees to treatment plan. Return precautions reviewed Differential Diagnosis Differential diagnosis: Likely corneal abrasion, conjunctivitis, acute iritis, hyphema, periorbital cellulitis, subconjunctival hemorrhage, glaucoma, corneal ulcer, ruptured globe and other (Eye irritation, foreign body in the left eye) Discharge Plan Discharge Clinical Impression: Eye irritation, Foreign body sensation, left eye Patient Disposition: Home Condition: Stable Instructions: Antibiotic Form, Eye Foreign Body (ED), Eye Pain (ED) Additional Instructions: Wood's lamp exam was performed and there is no sign of corneal abrasion or globe rupture Eye was irrigated and Q-tips were used to try to remove any foreign body-a very small speck of dirt was removed May use saline irrigation as needed Follow-up with your eye doctor as needed Patient Language: Swedish Prescriptions: No Action ciprofloxacin HCl 500 mg tablet 500 mg PO BID 10 Days Qty: 20 0RF metformin [Glucophage] 500 mg Tablet 500 mg PO BID tamsulosin [Flomax] 0.4 mg Capsule 0.4 mg PO DAILY fluticasone propionate [Flonase Allergy Relief] 50 mcg/actuation [place],Suspension 1 spray INTRANASAL Q6H PRN (Reason: Shortness Of Breath Or Wheezing) finasteride 5 mg Tablet 5 mg PO DAILY loratadine [Claritin] 10 mg Tablet 10 mg PO DAILY rosuvastatin [Crestor] 5 mg Tablet 5 mg PO HS aspirin 81 mg Tablet,Delayed Release (Dr/Ec) 81 mg PO DAILY nitroglycerin 0.4 mg Tablet, Sublingual 0.4 mg SUBLINGUAL Q5-15M PRN (Reason: Chest Pain) albuterol sulfate 2.5 mg /3 mL (0.083 %) solution for nebulization 2.5 mg INHALATION Q4H PRN (Reason: shortness of breath or wheezing) Rx Instructions: Take 3mls by nebulizer every 4 hours albuterol sulfate 90 mcg/actuation HFA aerosol inhaler 1 inh INHALATION Q4-6H PRN (Reason: shortness of breath or wheezing) polyethylene glycol 3350 [Miralax] 17 gram Powder In Packet 17 g PO QAM Qty: 30 0RF guaifenesin [Mucus Relief ER] 600 mg Tablet Extended Release 12hr 1,200 mg PO Q12HR Qty: 60 0RF enoxaparin [Lovenox] 40 mg/0.4 mL Syringe 40 mg SUBCUT DAILY Qty: 7 0RF Rx Instructions: for 19 days ipratropium bromide 0.02 % solution 2.5 ml INHALATION Q6H PRN (Reason: shortness of breath or wheezing) Qty: 300 5RF budesonide-formoterol [Symbicort] 160-4.5 mcg/actuation HFA aerosol inhaler See Rx Instructions .ROUTE .COMPLEX Qty: 10.2 5RF Dose Instruction: INHALE 2 PUFFS EVERY 12 HOURS. RINSE AND SPIT AFTER USE WITH SPACER Rx Instructions: INHALE 2 PUFFS DAILY Follow-up/Referrals: Nereida,VAIBHAV Villalobos [Primary Care Provider] - Time of Disposition: 13:57 Quality NIHSS Nursing Documentation ED NIHSS nursing documentation: reviewed/agree
--- OUTSIDE RECORDS SUMMARY | 2024-11-16 13:25 | XMS_ITS | Clinical Summary ---
Author Organization [facility] Address [address] [place] [address] Care Team Providers Care Materials Director Name Role Phone Jarret Carter MD Primary Care Provider [phone] Source Comments [facility],non-owned Affiliates and Associated Physician Practices is amultiple site organization consisting of ambulatory clinics and hospital sitesin [place], [place], [place] and [place]. This disclosure is being madepursuant to the Care Everywhere program and may not contain all information available regarding this patient. Last updated 18.[employer] [employer] [facility] Allergies Active Allergy Reactions Criticality Noted Date Comments Pravastatin Rash Medium 06/05/2019 Tetracycline Rash Medium 02/04/2016 Medications * Be aware that medications may not be up to date on this document. Alwaysverify current medications with the patient. metFORMIN (GLUCOPHAGE) 500 MG tablet Take 500 mg by mouth 2 times daily 08/12/2018 Active finasteride (PROSCAR) 5 MG tablet Take 5 mg by mouth once daily 03/10/2019 Active fluticasone propionate (FLONASE) 50 MCG/ACT nasal spray [place] 1 spray into the nose once daily 12/16/2018 Active tamsulosin (FLOMAX) 0.4 MG capsule Take 0.4 mg by mouth once daily 02/25/2019 Active loratadine (CLARITIN) 10 MG tablet TAKE 1 TABLET BY MOUTH EVERY DAYNO REFILL WITHOUT AN OFFICE VISIT 0 05/17/2019 Active rosuvastatin (CRESTOR) 5 MG tablet Take 5 mg by mouth once daily 06/05/2019 Active Active Problems Problem Noted Date Diagnosed Date BPH with obstruction/lower urinary tract symptom s 05/14/2019 Chest pain in adult 05/14/2019 Diabetes mellitus, type II 05/14/2019 Hepatitis C virus infection cured after antiviral drug therapy 12/16/2018 Hypercholesterolemia 09/09/2018 Pruritus 05/03/2017 Right hip pain 05/03/2017 Vertebral fracture, osteoporotic 06/23/2016 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 Overview (05/14/2019): Transitioned From: Hardware failure Muscle spasm 04/20/2016 Nicotine dependence in remission 02/28/2016 Spinal instability, lumbar 02/04/2016 Left leg pain 01/04/2016 Lumbar stenosis 09/30/2015 Lumbar disc herniation 09/22/2015 Ruptured disk 08/09/2015 Dental infection 08/02/2015 Bladder outlet obstruction 04/13/2015 Non-healing ulcer 04/13/2015 Raspy voice 03/25/2015 Chronic GERD 03/12/2015 Hyperglycemia 02/16/2015 Chronic lumbar pain 01/12/2014 Osteoarthrosis 09/04/2013 Osteoporosis 09/04/2013 Irritable bowel syndrome 04/07/2013 Current smoker 12/26/2012 Cervical radiculopathy 07/08/2012 Chronic obstructive pulmonary disease 05/21/2012 Encounter for preventive health examination 01/2012 Chronic hepatitis C virus infection 10/29/2010 Overview (05/14/2019): Description: Chronic Hepatitis, C Virus Resolved Problems Problem Noted Date Diagnosed Date Resolved Date UTI (urinary tract infection) 06/30/2016 05/28/2019 Family History Medical History Relation Name Comments Cancer - Colon Brother Cancer - Lung Father Relation Name Status Comments Brother Father Social History Tobacco Use Types Packs/Day Years Used Date Smoking Tobacco: Former Smokeless Tobacco: Never Alcohol Use Standard Drinks/Week Comments Never 0 (1 standard drink = 0.6 oz pur e alcohol) AUDIT-C Answer Date Recorded Frequency of Alcohol Consumption Never 05/14/2019 Average Number of Drinks Not on file 019 Frequency of Binge Drinking Not on file 05/02 Sex and Gender Information Value Date Recorded Sex Assigned at Not on file Legal Sex Male 7:46 PM ROW BOSS Gender Identity Not on file Sexual Orientation Not on file Last Filed Vital Signs Vital Sign Reading Time Taken Comments Blood Pressure 114/85 06/11/2019 1:01 PM ROW BOSS Pulse 121 06/11/2019 1:01 PM ROW BOSS Temperature 36.1 C (97 F) 06/11/2019 1:01 PM ROW BOSS Respiratory Rate 20 06/11/2019 1:01 PM ROW BOSS Oxygen Saturation 92% 06/11/2019 1:01 PM ROW BOSS Inhaled Oxygen Concentration - - Weight 77.6 kg (171 lb) 06/11/2019 1:01 PM ROW BOSS Height 177.8 cm (5' 10 ) 06/11/2019 1:01 PM ROW BOSS Body Mass Index 24.54 06/11/2019 1:01 PM ROW BOSS Plan of Treatment Health Maintenance Due Date Last Done Comments COLOGUARD (AGES 45-75) - COLON CA SCREENING 1949 COLON MONITORING 1949 COLONOSCOPY - COLON CA SCREENING 1949 CT COLONOGRAPHY - COLON CA SCREENING 1949 Colorectal Cancer Screening 1949 FIT - COLON CA SCREENING 1949 FLEX SIG - COLON CA SCREENING 1949 DIABETES-SERUM CREATININE 1967 DTAP/TDAP/TD VACCINES (1 - Tdap) 1968 PNEUMOCOCCAL VACCINE 50+ (1 of 2 - PCV) 1968 ZOSTER VACCINE (1 of 2) 1999 DIABETES-FOOT EXAM WITH MONOFILAMENT 05/14/2019 DIABETES-HGB A1C 05/14/2019 COVID-19 VACCINE ( - season) 2024 Respiratory Syncytial Virus (RSV) Vaccine Pt: or over 60 yrs (1 - 1-dose 75+ series) 2024 DEPRESSION SCREENING 07/02/2024 DIABETES - URINE PROTEIN SCREENING 07/02/2024 INFLUENZA VACCINE (Season Ended) 2025 04/17/2018, 03/16/2017, 04/13/2016, Additional history exists HEPATITIS C SCREENING Completed 12/16/2018, 011 HEPATITIS B VACCINE Aged Out No longe r eligible based on patient's age to complete this topic HIB VACCINE Aged Out No longer eligi ble based on patient's age to complete this topic HPV VACCINE Aged Out No longer eligi ble based on patient's age to complete this topic MENINGOCOCCAL (Group B) VACCINE SHARED DECISION-MAKING Aged Out No longer eligible based on patient's age to complete this topic MENINGOCOCCAL GROUPS A/C/Y/W VACCINE Aged Out No longer eligible based on patient's age to complete this topic Insurance [facility] Care Teams Materials Director Relationship Specialty Start Date End Date Jarret Carter MD PCP - General 06/11/19
--- OUTSIDE RECORDS SUMMARY | 2024-11-16 13:25 | XMS_ITS | Clinical Summary ---
Author Organization [address] Address [address] [place] [address] Care Team Providers Care International Sourcing Manager Name Role Phone Carmen Padron MD Primary Care Provider +1- [phone] Allergies Active Allergy Reactions Criticality Noted Date Comments Sulfamethoxazole-Trimethoprim Rash Medium 2021 Tetracyclines Rash Medium Medications tamsulosin (FLOMAX) 0.4 mg extended release capsule Take 1 capsule (0.4 mg total) by mouth daily 90 capsule 3 3 Active fluticasone propionate (FLONASE) 50 mcg/actuation nasal spray Administer 1 spray into each nostril 2 (two) times a day [address] (PROTONIX) 40 mg EC tablet Take 1 tablet (40 mg total) by mouth every morning 3 Active loratadine (CLARITIN) 10 mg tablet Take 1 tablet (10 mg total) by mouth every morning Active Breztri Aerosphere 160-9-4.8 mcg/actuation HFA aerosol inhaler Inhale 2 puffs 2 (two) times a day Active cholecalciferol (VITAMIN D-3) 5,000 unit capsule Take 1 capsule (5,000 Units total) by mouth every morning Active cranberry fruit 450 mg tablet Take 450 mg by mouth every morning 2 Active albuterol HFA (PROVENTIL HFA,VENTOLIN HFA,PROAIR HFA) 90 mcg/actuation inhaler Inhale 1 puff as needed for wheezing or shortness of breath 2 Active levalbuterol (XOPENEX) 0.63 mg/3 mL nebulizer solution Take 3 mL (0.63 mg total) by nebulization as needed for wheezing or shortness of breath Active metFORMIN (GLUCOPHAGE) 500 mg tablet Take 1 tablet (500 mg total) by mouth 2 times daily 9 Active nitroglycerin (NITROSTAT) 0.[address] 1 TAB UNDER TONGUE EVERY 5 MIN NEEDED FOR CHEST PAIN. MAX 3 DOSES, AFTER 3RD DOSE CALL 911 2 Active polyethylene glycol (MIRALAX) 17 gram/dose bulk powder Take 17 g by mouth every morning 3 Active rosuvastatin (CRESTOR) 5 mg tablet Take 1 tablet (5 mg total) by mouth nightly 9 Active UNABLE TO FIND Administer into each nostril Med Name: Home oxygen- 2L nightly and 3L with activity Active acetaminophen (TYLENOL) 500 mg tablet Take 2 tablets (1,000 mg total) by mouth every 6 (six) hours as needed for pain 4 Active Active Problems Problem Noted Date Diagnosed Date Urinary retention 02/13/2024 Current smoker 12/26/2012 Chronic hepatitis C virus infection 10/29/2010 Overview (10/12/2017): Description: Chronic Hepatitis, C Virus Immunizations Immunization Administration Dates Next Due Influenza, Quad, Adjuvantate d, Intramuscular 04/14/2022,03/02/2020 Influenza, Quadrivalent, Hig h Dose, Preservative Free, Intrr 05/10/2023 Influenza, Quadrivalent, Spl it, Intramuscular 04/17/2018 Influenza, Quadrivalent, Spl it, Preservative Free, Intramuscular 04/11/2021,04/13/2016,03/10/2015 Influenza, Trivalent, High D ose, Split, Preservative Free, Intramuscular 05/05/2024,04/30/2019 Influenza, Trivalent, IM (MDV) 04/10/2016,2012 Influenza, Unspecified 03/16/2017,03/30/2014, Pneumococcal Conjugate PCV 13 04/17/2018 Pneumococcal Conjugate, Unspecified 12/14/2014 Pneumococcal Polysaccharide PPV23 04/23/2021 RSV Vaccine, Pref, Recombina nt, Subunit, Adjuvanted, PF, IM (Arexvy) 09/01/2023 Tdap 12/14/2012 ZOSTER LIVE 04/01/2013 Surgical History Surgery Date Site/Laterality Comments CHOLECYSTECTOMY 07/02/2013 - 07/01/2014 BACK SURGERY slipped disc, x3, last one 2017 TOTAL HIP ARTHROPLASTY Bilateral right- 2018, left- 11/2020 CARPAL TUNNEL RELEASE 01/30/2021 - 03/01/2021 Left COLONOSCOPY last one 12/2020 CATARACT EXTRACTION W/ INTRA OCULAR LENS IMPLANT 07/02/2023 - 07/01/2024 Bilateral CYSTOSCOPY 12/30/2022 - 01/29/2023 uretheral dilation INGUINAL HERNIA REPAIR 07/02/2022 - 08/01/2022 Right ESOPHAGOGASTRODUODENOSCOPY 07/02/2022 - 08/01/2022 CYSTOSCOPY 03/02/2022 - 03/31/2022 laser vaporization of prostate CYSTOSCOPY 08/02/2021 - 08/29/2021 urethral dilation and urolift BLADDER SURGERY 05/05/2024 stage 1 bladder stim Medical History Medical History Date Comments Tobacco abuse counseling Encount er for smoking cessation counseling - (Added by TW Conv) On home oxygen therapy 2L nightl y and 3L with activity COPD (chronic obstructive pu lmonary disease) (HCC) Self-catheterizes urinary bladder Family History Medical History Relation Name Comments Anesthesia problems Neg Hx Social History Tobacco Use Types Packs/Day Years Used Date Smoking Tobacco: Former Cigarettes 1 43 1 975 - 2018 Vaping 2017 - 2018 Passive Smoke Exposure: Past Smokeless Tobacco: Never AUDIT-C Answer Date Recorded Q1: How often do you have a drink containing alcohol? Never 05/19/2024 Q2: How many drinks containi ng alcohol do you have on a typical day when you are drinking? Patient does not drink Q3: How often do you have si x or more drinks on one occasion? Never 05/19/2024 Personal Safety Answer Date Recorded Have you ever been in or are you currently in a harmful physical or emotional relationship or is someone making you feel afraid or unsafe? Denies 05/19/2024 Sex and Gender Information Value Date Recorded Sex Assigned at Not on file Legal Sex Male 11:03 PM INVESTIGATOR OPERATOR Gender Identity Male 01/19/2024 4:55 PM CDT Sexual Orientation Straight 01/19/2024 4: 55 PM CDT Obstetrics History Last Filed Vital Signs Vital Sign Reading Time Taken Comments Blood Pressure 123/70 05/20/2024 11:50 AM INVESTIGATOR OPERATOR Pulse 88 05/20/2024 11:50 AM INVESTIGATOR OPERATOR Temperature 36.9 C (98.4 F) 05/20/2024 11:50 AM INVESTIGATOR OPERATOR Respiratory Rate 17 05/20/2024 11:50 AM INVESTIGATOR OPERATOR Oxygen Saturation 93% 05/20/2024 11:50 AM INVESTIGATOR OPERATOR Inhaled Oxygen Concentration - - Weight 67.1 kg (148 lb) 05/19/2024 4:10 PM INVESTIGATOR OPERATOR Height 175.3 cm (5' 9.02 ) 05/19/2024 4:10 PM CS T Body Mass Index 21.85 05/19/2024 4:10 PM INVESTIGATOR OPERATOR Plan of Treatment Health Maintenance Due Date Last Done Comments Colon Cancer Screening-Colonoscopy 1950 Depression Screening 1950 Hepatitis B Screening 1967 Lung Cancer Screening 1999 Zoster Vaccine (2 of 3) 05/27/2013 04/01/2013 Well Visit 65+ 2014 DTaP/Tdap/Td Vaccine (2 - Td or Tdap) 12/14/2022 12/14/2012 Covid-19 Vaccine (2023-2 5 season) 2024 02/29/2024, 05/16/2023, 11/08/2022, Additional history exists Fall Risk Assessment 05/20/2025 05/20/2024 Hepatitis C Screening Completed 09/02/2013 , 02/03/2013, 12/26/2012, Additional history exists Pneumococcal vaccine 65+ Completed 021, 04/17/2018, 12/14/2014 Abdominal Aortic Aneurysm (A AA) Screen Completed 12/28/2022, 06/16/2022, 01/16/2014 Influenza Vaccine Completed 05/05/2024, , 04/14/2022, Additional history exists Medical Devices Implanted Type Area Chef Instructor Device Identifier Shelf Expiration Date Model / Serial / Lot Medtronic Inc Interstim 100cm Percutaneous Electrode Insulated Kit [id number] - [id number] Implanted:Qty: 1 on 05/05/2024 by Aquiles Yo MD at [facility] Neurostimulat or N/A: Sacrum Medtronic Inc 03/09/2026 [id number] / / Medtronic Inc Kit Lead Neurostimulator Percutaneous 4.32mm Spacing Interstim Surescan 28cm [id number] - [id number] Implanted:Qty: 1 on 05/05/2024 by Aquiles Yo MD at [facility] Neurostimulat or N/A: Sacrum Medtronic Inc 12/23/2025 [id number] / / Medtronic Inc Generator Neurostimulator Bowel Bladder Recharge Free Interstim X [id number] - [id number] - [id number] Implanted:Qty: 1 on 05/19/2024 by Aquiles Yo MD at [facility] Neurostimulat or N/A: Buttocks Medtronic Inc [id number] 01/12/2025 [id number] / [id number] / N/A Medtronic Inc Envelope Absrb 2.7x2.5in Antibacterial Tyrx Medium Strl [id number] - Sn/A - [id number] Implanted:Qty: 1 on 05/19/2024 by Aquiles Yo MD at [facility] Other - see comments N/A: Buttocks Med[employer]onic Inc 01/23/2025 [id number] / N/A / [id number] Description:ENVELOPE FOR INT ERSTIM TO GO IN Intraocular Lens Bilateral : Eye Insurance IDPA MEDICARE [facility] Advance Directives For more information, please contact: [phone] * Full Code (Latest Code Status on File) Date Activated Date Inactivated Comments 05/19/2024 4:25 PM 05/20/2024 6:55 PM * Full Code Date Activated Date Inactivated Comments 05/05/2024 4:26 PM 05/06/2024 6:15 PM Care Teams International Sourcing Manager Relationship Specialty Start Date End Date Carmen Padron MD PCP - General Nurse Practitioner 05/14/23
--- OUTSIDE RECORDS SUMMARY | 2024-11-16 13:25 | XMS_ITS | Referral Summary ---
Author Organization [address] Address [address] [place] [address] Care Team Providers Care Industrial Gas Production Operator Name Role Phone Carmen Padron MD Primary Care Provider +1- [phone] Allergies Active Allergy Reactions Criticality Noted Date [...] (Arexvy) 09/01/2023 Tdap 12/14/2012 ZOSTER LIVE 04/01/2013 Social History Tobacco Use Types Packs/Day Years Used Date Smoking Tobacco: Former Cigarettes 1 43 1 975 - 2018 Vaping 2017 Passive Smoke Exposure: Past Smokeless Tobacco: Never [...] on file Legal Sex Male 11:03 PM SORTING COWS WORKER Gender Identity Male 01/19/2024 4:55 PM CDT Sexual Orientation Straight 01/19/2024 4: 55 PM CDT Last Filed Vital Signs Vital Sign Reading Time Taken Comments Blood Pressure 123/70 05/20/2024 11:50 AM SORTING COWS WORKER Pulse 88 05/20/2024 11:50 AM SORTING COWS WORKER Temperature 36.9 C (98.4 F) 05/20/2024 11:50 AM SORTING COWS WORKER Respiratory Rate 17 05/20/2024 11:50 AM SORTING COWS WORKER Oxygen Saturation 93% 05/20/2024 11:50 AM SORTING COWS WORKER Inhaled Oxygen Concentration - - Weight 67.1 kg (148 lb) 05/19/2024 4:10 PM SORTING COWS WORKER Height 175.3 cm (5' 9.02 ) 05/19/2024 4:10 PM CS T Body Mass Index 21.85 05/19/2024 4:10 PM SORTING COWS WORKER Plan of Treatment Not on file Medical Devices Implanted Type Area Sand Wheeler Device Identifier Shelf Expiration Date Model / Serial / Lot Medtronic Inc Interstim 100cm Percutaneous Electrode Insulated Kit [id number] - [id number] Implanted:Qty: 1 on 05/05/2024 by Aquiles Yo MD at [facility] Neurostimulat or N/A: Sacrum Med[employer] Inc 03/09/2026 [id number] / / Med[employer]onic Inc Kit Lead Neurostimulator Percutaneous 4.32mm Spacing Interstim Surescan 28cm [id number] - [id number] Implanted:Qty: 1 on 05/05/2024 by Aquiles Yo MD at [facility] Neurostimulat or N/A: Sacrum Med[employer]onic Inc 12/23/2025 [id number] / / Med[employer]onic Inc Generator Neurostimulator Bowel Bladder Recharge Free Interstim X [id number] - [id number] - [id number] Implanted:Qty: 1 on 05/19/2024 by Aquiles Yo MD at [facility] Neurostimulat or N/A: Buttocks Med[employer]onic Inc [id number] 01/12/2025 [id number] / [id number] / N/A Med[employer]onic Inc Envelope Absrb 2.7x2.5in Antibacterial Tyrx Medium Strl [id number] - Sn/A - [id number] Implanted:Qty: 1 on 05/19/2024 by Aquiles Yo MD at [facility] Other - see comments N/A: Buttocks [employer] Inc 01/23/2025 [id number] / N/A / [id number] Description:ENVELOPE FOR INT ERSTIM TO GO IN Intraocular Lens Bilateral : Eye Insurance [place] MEDICARE [facility] Advance Directives For more information, please contact: [phone] * Full Code (Latest Code Status on File) Date Activated Date Inactivated Comments 05/19/2024 4:25 PM 05/20/2024 6:55 PM * Full Code Date Activated Date Inactivated Comments 05/05/2024 4:26 PM 05/06/2024 6:15 PM Care Teams Industrial Gas Production Operator Relationship Specialty Start Date End Date Carmen Padron MD PCP - General Nurse Practitioner 05/14/23
--- OUTSIDE RECORDS SUMMARY | 2024-11-16 13:25 | XMS_ITS | Encounter Summary ---
Author Organization [facility] Address [address] [place] [address] Phone Care Team Providers Care Fishing Vessel Operator Name Role Phone Carmen Padron MD Primary Care Provider +1- [phone] Encounter Details Date Type Department Care Team (Late st Contact Info) Description 04/11/2024 Orders Only [facility] Urology [address] [facility] [address] [place] [address] Aquiles Yo MD [address] [facility] [address] [place], [place] [id number] Urinary retention (Primary Dx) Social History Tobacco Use Types Packs/Day Years Used Date Smoking Tobacco: Former Cigarettes 1 43 1 975 - 2018 Vaping 2017 - 2018 Passive Smoke Exposure: Past Smokeless Tobacco: Never AUDIT-C Answer Date Recorded Q1: How often do you have a drink containing alcohol? Never 03/20/2024 Q2: How many drinks containi ng alcohol do you have on a typical day when you are drinking? Patient does not drink Q3: How often do you have si x or more drinks on one occasion? 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 INVENTORY CLERK Gender Identity Male 01/19/2024 4:55 PM CDT Sexual Orientation Straight 01/19/2024 4: 55 PM CDT documented as of this encounter Plan of Treatment Not on file documented as of this encounter Procedures Procedure Name Priority Date/Time Associated Diagnosis Comments URINE CULTURE Routine 04/21/2024 8:55 AM CDT Urinary retention documented in this encounter Results * (ABNORMAL) Urine culture Urine, clean voided (04/21/2024 8:55 AM CDT) Urine culture (A) Ofelia Feliz-Constanza Nowak Comment: CULTURE, URINE, ROUTINE Micro Number: [id number] Test Status: Final Specimen Source: Urine, catheter Specimen Quality: Adequate Result: Greater than 100,000 CFU/mL of Enterococcus species Enterococcus sp. INT AMANDA AMPICILLIN S <=2 NITROFURANTOIN S <=16 VANCOMYCIN S 1 S = Susceptible I = Intermediate R = Resistant NS = Not susceptible SDD = Susceptible Dose Dependent * = Not Tested NR = Not Reported NN = See Therapy Comments Urine, clean voided 04/21/2024 8:55 AM CDT 04/21/2024 8:55 AM CDT Aquiles Yo MD LAB MICROBIOLOGY - GENERAL ORD ERABLES [facility] [address] [place] [address] documented in this encounter Visit Diagnoses Diagnosis Urinary retention- Primary Unspecified retention of urine documented in this encounter Care Teams Fishing Vessel Operator Relationship Specialty Start Date End Date Carmen Padron MD PCP - General Nurse Practitioner 05/14/23 documented as of this encounter
--- OUTSIDE RECORDS SUMMARY | 2024-11-16 13:29 | XMS_ITS | Encounter Summary ---
Author Organization [facility] Address [facility] [place] [address] Care Team Providers Care Group Burner Machine Name Role Phone Daniel Vides MD Unavailable [phone] Carmen Padron NP Primary Care Provider [phone] Jeremy Bains MD Unavailable [phone] Allen Tay MD Unavailable [phone] Encounter Details Date Type Department Care Team (Latest Contact Info) Description 03/25/2021 MyCTruQut Message Enc [facility] Medical Group Multispecialty Care - [place] [address] [address] [place] [address] Miguel Cee MD [address] [facility] [address] [place], [place] [id number] Bone scan and medication Social History Tobacco Use Types Packs/Day Years Used Date Smoking Tobacco: Former Cigarettes 1 30 0 07/1988 - 07/2018 Smokeless Tobacco: Never Comments:The provider can pr ovide you with more information about quitting. Alcohol Use Standard Drinks/Week Comments No 0 (1 standard drink = 0.6 oz pur e alcohol) AUDIT-C Answer Date Recorded Frequency of Alcohol Consumption Never 08/09/2018 Average Number of Drinks Not on file 019 Frequency of Binge Drinking Not on file 01/2019 PHQ-2 Answer Date Recorded PHQ-2 Score - If the patient scores above 3, please move on to questions 3-9 0 08/20/2020 Sex and Gender Information Value Date Recorded Sex Assigned at Male 08/18/2024 7:33 AM SCRAP STRIPPER HAND Legal Sex Male 4:05 PM CDT Gender Identity Male 04/22/2021 11:15 AM CDT Sexual Orientation Straight 04/22/2021 11 :15 AM CDT Occupation Industry Job Start Date Job End Date Not on file Not on file Not on file Not on file COVID-19 Exposure Response Date Recorded In the last month, have you been in contact with someone who was confirmed or suspected to have Coronavirus / COVID-19? No / Unsure 03/25/2021 5:31 AM CDT documented as of this encounter Functional Status * RETIRED Are you deaf or do you have serious difficulty hearing Answer Date of Assessment Author Status No 12/09/2020 6:03 PM CDT Activ e * RETIRED Are you blind or do you have serious difficulty seeing, even when wearing glasses? Answer Date of Assessment Author Status No 12/09/2020 6:03 PM CDT Activ e * Do you have serious difficulty walking or climbing stairs? Answer Date of Assessment Author Status No 12/09/2020 6:03 PM CDT Remedios Abel RN Active * Do you have difficulty dressing or bathing? Answer Date of Assessment Author Status No 12/09/2020 6:03 PM CDT Remedios Abel RN Active * Because of a physical, mental, or emotional condition, do you have difficulty doing errands alone such as visiting a doctor's office or shopping? Answer Date of Assessment Author Status No 12/09/2020 6:03 PM CDT Remedios Abel RN Active documented as of this encounter Mental Status * Because of a physical, mental, or emotional condition, do you have serious difficulty concentrating, remembering, or making decisions? Answer Entry Date Author Status No 12/09/2020 6:03 PM KARISSAT Remedios Abel RN Active documented in this encounter Plan of Treatment Upcoming Encounters Date Type Department Care Team (Latest Contact Info) Description 12/05/2024 12:00 PM CDT Office Visit [facility] [phone] Daniel Vides MD 3 [facility] [address] [place] [address] 12/25/2024 9:40 AM CDT Office Visit [facility] Medical Group Multispecialty Care - [facility] [address] [facility] [address] [place] [phone] Allen Tay MD 3 [facility] [address] [place] [address] 03/23/2025 7:30 AM CDT Hospital Encounter [facility] [place] [address] Cm Klein MD [address] [address] 03/23/2025 7:30 AM CDT - 03/23/2025 8:[address] [facility] [place] [address] Cm Klein MD [address] [address] COLONOSCOPY Scheduled Procedures Name Priority Associated Diagnoses Date/Ti me COLONOSCOPY Hx of colonic polyps Family hx of colon cancer Screening for colon cancer 03/23/2025 7:30 AM CDT documented as of this encounter Goals Goal Patient Goal Type Associated Problems Recent Progress Patient-Stated? Author Safety - demonstrates understanding of home safety measures General Lauren Amor RN documented as of this encounter Visit Diagnoses Not on filedocumented in this encounter Additional Health Concerns Infection Onset Date Last Indicated Resolved Time COVID-19 Rule Out 11/18/2021 11/18/2021 11/18/2021 4:23 PM CDT COVID-19 Rule Out 08/17/2022 08/17/2022 08/17/2022 10:43 AM SCRAP STRIPPER HAND Influenza - Seasonal 08/17/2022 08/17/2022 023 12:32 AM SCRAP STRIPPER HAND COVID-19 Rule Out 08/04/2023 08/04/2023 08/04/2023 10:59 AM SCRAP STRIPPER HAND Assessment Noted Time PHQ-9 Depression Total Score: 2 08/20/19 21 11:00 AM SCRAP STRIPPER HAND documented as of this encounter Care Teams Group Burner Machine Relationship Specialty Start Date End Date Carmen Padron NP [address] [place] [address] PCP - General NURSE PRACTITIONER 08/10/20 Daniel Vides MD 3 [facility] [place] [address] [place] [phone] [employer] CARDIOVASCULAR DISEASE 08/09/18 Jeremy Bains MD [address] [place] [address] UROLOGY 02/22/22 Allen Tay MD [address] [facility] [address] [place] [address] Consulting Physician Internal Medicine Pulmonary Disease 02/23/22 documented as of this encounter
--- OUTSIDE RECORDS SUMMARY | 2024-11-16 13:29 | XMS_ITS | Encounter Summary ---
Author Organization [facility] Address [facility] [place] [address] Care Team Providers Care Blanking Press Operator Name Role Phone Daniel Vides MD Unavailable [phone] Carmen Padron NP Primary Care Provider [phone] Jeremy Bains MD Unavailable [phone] Allen Tay MD Unavailable [phone] Encounter Details Date Type Department Care Team (Late st Contact Info) Description 01/18/2021 Prep for Procedure [facility] [place], [place] [phone] Bernard Hall MD [address] [phone] Social History Tobacco Use Types Packs/Day Years Used Date Smoking Tobacco: Former Cigarettes 1 30 0 07/1988 - 07/2018 Smokeless Tobacco: Never Comments:quit Alcohol Use Standard Drinks/Week Comments No 0 [...] Sex Assigned at Male 08/18/2024 7:33 AM EGYPTOLOGIST Legal Sex Male 4:05 PM CDT Gender [...] have Coronavirus / COVID-19? No / Unsure 01/21/2021 10:48 AM CDT documented as of this encounter [...] Description 12/05/2024 12:00 PM CDT Office Visit [facility] [address] Daniel Vides MD 3 [facility] Suite [facility] [place] [phone] 12/25/2024 9:40 AM CDT Office [facility] Medical Group Multispecialty Care - [facility] [address] [facility] [address] [place] [address] Allen Tay MD 3 [facility] [address] [place] [address] 03/23/2025 7:30 AM CDT Hospital Encounter [facility] [place] [address] Cm Klein MD [address] [address] 03/23/2025 7:30 AM CDT - 03/23/2025 8:00 AM CDT Surgery [facility] [place]o/[place] [address] Cm Klein MD [address] [address] COLONOSCOPY Scheduled Procedures Name Priority Associated Diagnoses Date/Ti hi COLONOSCOPY Hx of colonic polyps Family hx of colon cancer Screening for colon cancer 03/23/2025 7:30 AM CDT documented as of this encounter Goals Goal Patient Goal Type Associated Problems Recent Progress Patient-Stated? Author Safety - demonstrates understanding of home safety measures General No Lauren Mckeon RN documented as of this encounter Results * PRE-SURGICAL/PRE-PROCEDURE CORONAVIRUS (COVID 19) (01/18/2021 10:44 AM CDT) CORONAVIRUS SARS COV 2 PCR (RESP) NOT DETECTED NOT DETECTED 01/20/2021 12:55 AM T [facility] Comment: A Not Detected (negative) test result for this test means that SARS-CoV-2 RNA was not present in the specimen above the limit of detection. A negative result does not rule out the possibility of COVID-19 and should not be used as the sole basis for treatment or patient management decisions. If COVID-19 is still suspected, based on exposure history together with other clinical findings, re-testing should be considered in consultation with public health authorities. Laboratory test results should always be considered in the context of clinical observations and epidemiological data in making a final diagnosis and patient management decisions. This patient specimen was tested using an FDA EUA pooling method. Patient specimens with low viral loads may not be detected in sample pools due to the decreased sensitivity of pooled testing. Please review the Fact Sheets and FDA authorized labeling available for health care providers and patients using the following websites: [email or web address]/fact-sheet2 [email or web address]-19/Patients/NAAT/ fact-sheet2 This test has been authorized by the FDA under an Emergency Use Authorization (EUA) for use by authorized laboratories. Due to the current public health emergency, [facility] is receiving a high volume of samples from a wide variety of swabs and media for COVID-19 testing. In order to serve patients during this public health crisis, samples from appropriate clinical sources are being tested. Negative test results derived from specimens received in non-commercially manufactured viral collection and transport media, or in media and sample collection kits not yet authorized by FDA for COVID-19 testing should be cautiously evaluated and the patient potentially subjected to extra precautions such as additional clinical monitoring, including collection of an additional specimen. Methodology: Nucleic Acid Amplification Test (NAAT) includes RT-PCR or TMA Additional information about COVID-19 can be found at the [facility] website: [email or web address]. Test performed at [facility] [address] [place] [address] Director: POLO BUSH DO,MPH FIRST TEST NO 01/18/2021 10:44 AM T [facility] EMPLOYED IN [facility] NO 01/18/2021 10:44 AM CDT [facility] SYMPTOMATIC DEFINED BY CDC NO 01/18/2021 10:44 AM CDT [facility] DATE OF SYMPTOM ONSET UNKNOWN 01/18/2021 10:47 AM CDT [facility] HOSPITALIZATION STATUS NO 01/18/2021 10:44 AM CDT [facility] PATIENT IN ICU NO 01/18/2021 10:44 AM CDT [facility] RESIDENT OF [facility] NO 01/18/2021 10:44 AM CDT [facility] UNKNOWN 01/18/2021 10:47 AM CDT [facility] PATIENT'S RACE WHITE OR 01/18/2021 10:44 AM CDT [facility] ETHNICITY NONHISPANIC 01/18/2021 10:44 AM CDT [facility] SOURCE (QST) NASOPHARYNGEAL SWAB 01/18/2021 10:44 AM CDT [facility] NASOPHARYNGEAL SWAB / Unknown 01/18/2021 10:44 AM CDT us Bernard Hall MD MICROBIOLOGY - [facility] ORDERABLES Final Result [facility] [address] [place] [address], [place] [phone] [facility] [id number] [place] [address], documented in this encounter Visit Diagnoses Diagnosis Personal history of colonic polyps- Primary Hx of colonic polyps Personal history of colonic polyps Family hx of colon cancer Family history of malignant neoplasm of gastrointestinal tract Screening for colon cancer Special screening for malignant neoplasms, colon documented in this encounter Additional Health Concerns Infection Onset Date Last Indicated Resolved Time COVID-19 Rule Out 01/18/2021 01/18/2021 01/20/2021 12:55 AM CDT COVID-19 Rule Out 11/18/2021 11/18/2021 11/18/2021 4:23 PM CDT COVID-19 Rule Out 08/17/2022 08/17/2022 08/17/2022 10:43 AM EGYPTOLOGIST Influenza - Seasonal 08/17/2022 08/17/2022 023 12:32 AM EGYPTOLOGIST COVID-19 Rule Out 08/04/2023 08/04/2023 08/04/2023 10:59 AM EGYPTOLOGIST Assessment Noted Time PHQ-9 Depression Total Score: 2 08/20/19 11:00 AM EGYPTOLOGIST documented as of this encounter Care Teams Blanking Press Operator Relationship Specialty Start Date End Date Carmen Padron NP [address] [place] [address] PCP - General NURSE PRACTITIONER 08/10/20 Daniel Vides MD 3 [facility] [place] [address] [place] [phone] [place] [employer] CARDIOVASCULAR DISEASE 08/09/18 Jeremy Bains MD [address] [place] [address] UROLOGY 02/22/22 Allen Tay MD [address] [facility] [address] [place] [address] Consulting Physician Internal Medicine Pulmonary Disease 02/23/22 documented as of this encounter
--- OUTSIDE RECORDS SUMMARY | 2024-11-16 13:30 | XMS_ITS | Encounter Summary ---
Author Organization [facility] Address [facility] [place] [address] Care Team Providers Care Baker Bread Name Role Phone Daniel Vides MD Unavailable [phone] Carmen Padron NP Primary Care Provider [phone] Jeremy Bains MD Unavailable Allen Tay MD Unavailable [phone] Encounter Details Date Type Department Care Team (Late st Contact Info) Description 06/14/2022 [employer] Message Enc [facility] [address] [address] [place] Provider Lab results Social History Tobacco Use Types Packs/Day Years Used Date Smoking Tobacco: Former Cigarettes 1 30 0 07/02/1987 - 07/02/2017 Smokeless Tobacco: Never Comments:The provider can pr ovide you with more information about quitting. Alcohol Use Standard Drinks/Week Comments No 0 (1 standard drink = 0.6 oz pur e alcohol) stopped years ago AUDIT-C Answer Date Recorded Frequency of Alcohol Consumption Never 08/09/2018 Average Number of Drinks Not on file 019 Frequency of Binge Drinking Not on file 01/2019 PHQ-2 Answer Date Recorded PHQ-2 Score - If the patient scores above 3, please move on to questions 3-9 0 06/05/2022 Sex and Gender Information Value Date Recorded Sex Assigned at Male 08/18/2024 7:33 AM STRAIGHTENING MACHINE OPERATOR Legal Sex Male 4:05 PM CDT Gender Identity Male 04/22/2021 11:15 AM CDT Sexual Orientation Straight 04/22/2021 11 :15 AM CDT Occupation Industry Job Start Date Job End Date Not on file Not on file Not on file Not on file COVID-19 Exposure Response Date Recorded In the last 10 days, have lior waller been in contact with someone who was confirmed or suspected to have Coronavirus/COVID-19? No / Unsure 06/16/2022 9:31 AM STRAIGHTENING MACHINE OPERATOR documented as of this encounter Functional Status * RETIRED Are you deaf or do you have serious difficulty hearing Answer Date of Assessment Author Status No 03/07/2022 4:00 PM CDT Activ e * RETIRED Are you blind or do you have serious difficulty seeing, even when wearing glasses? Answer Date of Assessment Author Status No 03/07/2022 4:00 PM CDT Activ e * Do you have serious difficulty walking or climbing stairs? Answer Date of Assessment Author Status No 03/07/2022 4:00 PM CDT Remedios Abel RN Active * Do you have difficulty dressing or bathing? Answer Date of Assessment Author Status No 03/07/2022 4:00 PM CDT Remedios Abel RN Active * Because of a physical, mental, or emotional condition, do you have difficulty doing errands alone such as visiting a doctor's office or shopping? Answer Date of Assessment Author Status No 03/07/2022 4:00 PM CDT Remedios Abel RN Active documented as of this encounter Mental Status * Because of a physical, mental, or emotional condition, do you have serious difficulty concentrating, remembering, or making decisions? Answer Entry Date Author Status No 03/07/2022 4:00 PM CDT Remedios Abel RN Active documented in this encounter Plan of Treatment Upcoming Encounters Date Type Department Care Team (Latest Contact Info) Description 12/05/2024 12:00 PM CDT Office Visit [facility] [phone] Daniel Vides MD [address] [place] [address] [address] [place] [phone] 12/25/2024 9:40 AM CDT Office Visit [facility] [address] [place] [address] Allen Tay MD 3 [facility] [place] [address] [place] [address] 03/23/2025 7:30 AM CDT Hospital Encounter [facility] [place] [address] Cm Klein MD [address] [address] 03/23/2025 7:30 AM CDT - 03/23/2025 8:00 AM CDT Surgery [facility] [address] Cm Klein MD [address] [address] COLONOSCOPY Scheduled Procedures Name Priority Associated Diagnoses Date/Ti me COLONOSCOPY Hx of colonic polyps Family hx of colon cancer Screening for colon cancer 03/23/2025 7:30 AM CDT documented as of this encounter Goals Goal Patient Goal Type Associated Problems Recent Progress Patient-Stated? Author Safety - demonstrates understanding of home safety measures General No Lauren Mckeon RN documented as of this encounter Visit Diagnoses Not on filedocumented in this encounter Additional Health Concerns Infection Onset Date Last Indicated Resolved Time COVID-19 Rule Out 08/17/2022 08/17/2022 08/17/2022 10:43 AM STRAIGHTENING MACHINE OPERATOR Influenza - Seasonal 08/17/2022 08/17/2022 023 12:32 AM STRAIGHTENING MACHINE OPERATOR COVID-19 Rule Out 08/04/2023 08/04/2023 08/04/2023 10:59 AM STRAIGHTENING MACHINE OPERATOR Assessment Noted Time PHQ-9 Depression Total Score: 0 08/22/19 11:01 AM STRAIGHTENING MACHINE OPERATOR documented as of this encounter Care Teams Baker Bread Relationship Specialty Start Date End Date Carmen Padron NP [address] [place] [address] PCP - General NURSE PRACTITIONER 08/10/20 Daniel Vides MD 3 [facility] [address] [place] [phone] [employer]or Tender CARDIOVASCULAR DISEASE 08/09/18 Jeremy Bains MD [address] [place] [address] UROLOGY 02/22/22 Allen Tay MD [address] [facility] [address] [place] [address] Consulting Physician Internal Medicine Pulmonary Disease 02/23/22 documented as of this encounter
--- OUTSIDE RECORDS SUMMARY | 2024-11-16 13:30 | XMS_ITS | Encounter Summary ---
Author Organization [facility] Address [address] [place] [address] Care Team Providers Care Slot Machine Key Person Name Role Phone Daniel Vides MD Unavailable [phone] Carmen Padron NP Primary Care Provider [phone] Jeremy Bains MD Unavailable [phone] Allen Tay MD Unavailable [phone] Encounter Details Date Type Department Care Team (Late st Contact Info) Description 12/27/[address] [facility] [address] [place], [place] [phone] [facility] Provider Air Quality Message Social History Tobacco Use Types Packs/Day Years Used Date Smoking Tobacco: Former Cigarettes 1 30 0 07/02/1987 - 07/02/2017 Passive Smoke Exposure: Past Smokeless Tobacco: Never Alcohol Use Standard Drinks/Week Comments No 0 (1 standard drink = 0.6 oz pur e alcohol) stopped years ago AUDIT-C Answer Date Recorded Frequency of Alcohol Consumption Never 08/09/2018 Average Number of Drinks Not on file 019 Frequency of Binge Drinking Not on file 01/2019 PHQ-2 Answer Date Recorded Patient Health Questionnaire-2 Score 0 12/07/2022 Sex and Gender Information Value Date Recorded Sex Assigned at Male 08/18/2024 7:33 AM CAMPAIGN DIRECTOR Legal Sex Male 4:05 PM CDT Gender Identity Male 04/22/2021 11:15 AM CDT Sexual Orientation Straight 04/22/2021 11 :15 AM CDT Occupation Industry Job Start Date Job End Date Not on file Not on file Not on file Not on file COVID-19 Exposure Response Date Recorded In the last 10 days, have yo u been in contact with someone who was confirmed or suspected to have Coronavirus/COVID-19? No / Unsure 12/07/2022 10:52 AM CDT documented as of this encounter [...] PM CDT Remedios Abel RN Active * Calculated C-SSRS Risk Score (Lifetime/Recent) Answer Date of Assessment Author Status No Risk Indicated 12/28/2022 6:27 AM CDT Saba Carter RN Active * [place] Suicide Severity Rating Scale (Screener/Recent Self-Report) Question Answer Date of Assessment Author Status 1. Wish to be (Past 1 Month) No 12/28/2022 6:27 AM CDT Rafat Carter, RN Acti ve 2. Non-Specific Active Suicidal Thoughts (Past 1 Month) No 12/28/2022 6:27 AM CDT Rafat Carter, RN Acti ve 6. Suicidal Behavior (Lifetime) No 12/28/2022 6:27 AM KARISSAT Rafat Carter, RN Acti ve documented as of this encounter Mental Status [...] Description 12/05/2024 12:00 PM CDT Office Visit [facility] [address] Daniel Vides MD 3 [facility] [address] [place] [phone] 12/25/2024 9:40 AM CDT Office Visit [facility] - [facility] [address] [facility] [address] [place] [phone] Allen Tay MD 3 [facility] [address] [address] 03/23/2025 7:30 AM CDT Hospital Encounter [facility] [place] [address] Cm Klein MD [address] [address] 03/23/2025 7:30 AM CDT - 03/23/2025 8:00 AM CDT Surgery [facility] [place] [address] Cm Klein MD [address] [address] COLONOSCOPY Scheduled Procedures Name Priority Associated Diagnoses [...] Last Indicated Resolved Time COVID-19 Rule Out 08/04/2023 08/04/2023 08/04/2023 10:59 AM CAMPAIGN DIRECTOR Assessment Noted Time PHQ-9 Depression Total Score: 0 08/22/19 11:01 AM CAMPAIGN DIRECTOR documented as of this encounter Care Teams Slot Machine Key Person Relationship Specialty Start Date End Date Carmen Padron NP [address] [place] [address] PCP - General NURSE PRACTITIONER 08/10/20 Daniel Vides MD 3 [facility] [address] [place] [phone] [place] [employer] Analyst CARDIOVASCULAR DISEASE 08/09/18 Jeremy Bains MD [address] [place] [address] UROLOGY 02/22/22 Allen Tay MD [address] [facility] [address] [place] [address] Consulting Physician Internal Medicine Pulmonary Disease 02/23/22 documented as of this encounter
--- OUTSIDE RECORDS SUMMARY | 2024-11-16 13:30 | XMS_ITS | Clinical Summary ---
Author Organization [facility] Address [address] [place] [address] Care Team Providers Care Produce Wrapper Name Role Phone Daniel Vides MD Unavailable [phone] Carmen Padron NP Primary Care Provider [phone] Jeremy Bains MD Unavailable [phone] Lisa Maldonado MD Unavailable [phone] Allergies Active Allergy Reactions Criticality Noted Date Comments Sulfamethoxazole-Trimetho prim Hives,Other (see comment) Low 02/28/2022 Tingling lips Pravastatin Rash Low 06/05/2019 Tetracycline Rash Low 02/04/2016 Medications OXYGEN Take 3 liters with activity and 2 liters at bedtime. 1 Device 019 Active cranberry 450 MG Tab tablet Take 1 tablet (450 mg total) by mouth daily. Active acetaminophen (TYLENOL) 325 MG tablet Take 2 tablets (650 mg total) by mouth every 4 (four) hours as needed for Pain. For Mild Pain or Fever 023 Active vitamin D3, cholecalciferol, 5000 UNITS capsule Take 1 capsule (125 mcg total) by mouth daily. Active tamsulosin (FLOMAX) 0.4 MG Cap Take 1 capsule (0.4 mg total) by mouth daily. 023 Active budesonide-glycopy rrolate-formoterol (BREZTRI AEROSPHERE) 160-9-4.8 MCG/ACT inhalerIndications :Centrilobular emphysema (CMS/HCC HHS/HCC) Inhale 2 puffs into the lungs 2 (two) times daily. 10.7 g 6 024 Active acidophilus (FLORAJEN) capsule Take 1 capsule by mouth daily. 30 capsule 024 Active metFORMIN (GLUCOPHAGE) 500 MG tabletIndications: Type 2 diabetes mellitus with hyperosmolarity without coma, without long-term current use of insulin ([facility]) TAKE 1 TABLET BY MOUTH TWICE A DAY WITH FOOD 180 tablet 1 024 Active rosuvastatin (CRESTOR) 5 MG tabletIndications: Hyperlipidemia, unspecified hyperlipidemia type TAKE 1 TABLET (5 MG TOTAL) BY MOUTH NIGHTLY AT BEDTIME. PLEASE CALL OFFICE FOR APPOINTMENT. 90 tablet 1 025 Active pantoprazole EC (PROTONIX) 40 MG tabletIndications: Epigastric pain TAKE 1 TABLET BY MOUTH EVERY DAY 30 tablet 2 025 Active fluticasone propionate (FLONASE) 50 MCG/ACT nasal sprayIndications:C hronic sinusitis INSTIL 1 SPRAY INTO THE NOSTRIL(S) TWICE A DAY 16 mL 2 025 Active albuterol sulfate HFA 108 (90 Base) MCG/ACT inhalerIndications :Pulmonary emphysema, unspecified emphysema type ([facility]),COPD exacerbation ([facility]) INHALE 1 PUFF INTO THE LUNGS DAILY NEEDED FOR WHEEZING 18 g 5 025 Active albuterol (PROVENTIL) (2.5 MG/3ML) 0.083% nebulizer solutionIndication s:Chronic obstructive pulmonary disease, unspecified COPD type ([facility]) Take 3 mLs (2.5 mg total) by nebulization every 4 (four) hours as needed for Wheezing. 360 mL 025 Active loratadine (CLARITIN) 10 MG tabletIndications: Chronic sinusitis TAKE 1 TABLET BY MOUTH EVERY DAY 30 tablet 5 025 Active loratadine (CLARITIN) 10 MG tabletIndications: Chronic sinusitis take 1 tablet by mouth every day 30 tablet 5 024 2024 Discontinued albuterol (PROVENTIL) (2.5 MG/3ML) 0.083% nebulizer solutionIndication s:Chronic obstructive pulmonary disease, unspecified COPD type ([facility]) Take 3 mLs (2.5 mg total) by nebulization every 4 (four) hours as needed for Wheezing. 360 mL 025 2024 Discontinued(R eorder) cephALEXin (KEFLEX) 500 MG capsuleIndications :Recurrent UTI,BPH with obstruction/lower urinary tract symptoms Take 1 capsule (500 mg total) by mouth 2 (two) times daily for 7 days. 14 capsule 025 2024 Active Problems Problem Noted Date Diagnosed Date UTI (urinary tract infection) 06/10/2024 Prediabetes 06/09/2024 Overview (06/09/2024): A1C a year ago was 6.1. Pt taking Metformin 500mg twice a day. Tolerates well. Denies any polyuria, polydipsia, or polyphagia. Denies neuropathy. Assessment & Plan (06/09/2024 10:25 AM J2EE CONSULTANT): A1C 5.8 today. Chronic condition, controlled. No changes needed at this time. Resume Metformin 500mg BID and following a healthy well balance diet. Hx of colonic polyps 01/28/2024 Family hx of colon cancer 01/28/2024 Urinary retention 12/25/2022 Overview (06/09/2024): Pt recently had second-stage InterStim generator placement and self cathing. Also taking tamsulosin daily. Follows with urology Dr. Yo.Pt was self cathing 4 x's a day and he is down to once a day now. He reports the generator is placed in his back. Assessment & Plan (06/09/2024 10:26 AM J2EE CONSULTANT): Continue to follow up with urology as directed. Pt is doing well with InterStim generator Centrilobular emphysema ([facility]) 2021 Epigastric pain 12/16/2021 Stable angina 04/07/2021 Overview (06/08/2022): Last Assessment & Plan: Condition: stable Follow up in: if symptoms worsen or fail to improve Vitamin D deficiency 04/07/2021 Overview (06/08/2022): Last Assessment & Plan: Condition: stable Follow up in: if symptoms worsen or fail to improve Osteopenia 03/25/2021 Onychomycosis 03/18/2021 Left displaced femoral neck fracture ([facility]) 12/09/2020 Coronary artery calcification seen on CAT scan 0 10/08/2020 Chronic respiratory failure with hypoxia ([facility]) 10/14/2019 Sinus tachycardia 06/05/2019 Overview (06/09/2024): Hx of sinus tachycardia. Follows with cardio. Denies chest pain, palpitations, (has chronic shortness of breath) dizziness, lightheadedness or lower extremity edema. Denies any orthopnea or PND. Assessment & Plan (06/09/2024 10:34 AM J2EE CONSULTANT): Resume following with cardio as directed. No Tachycardia noted on exam today. BPH with obstruction/lower urinary tract symptom s 05/14/2019 Hepatitis C virus infection cured after antiviral drug therapy 12/16/2018 Hypercholesterolemia 09/09/2018 Overview (06/09/2024): On Rosuvastatin and tolerating well. Lipid panel from 08/02/23 reviewed. Assessment & Plan (06/09/2024 9:28 AM J2EE CONSULTANT): Chronic condition, controlled. No changes needed at this time. Resume Rosuvastatin 5mg nighly at bedtime and encourage healthy well balance diet. COPD (chronic obstructive pu lmonary disease) ([facility]) 08/12/2018 Overview (06/09/2024): Follows with pulmonology Dr. Maldonado. On Breztri and Xopenex neb PRN. Also wears oxygen 3L with activity, none at rest, 2L at night. Former cigarette smoker and yearly lung cancer CT scan ordered by Dr. Maldonado. Assessment & Plan (06/09/2024 10:30 AM J2EE CONSULTANT): Chronic condition that is stable. Resume following with pulmonology as directed. 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 Controlled. Has not trailed off of it. Assessment & Plan (06/09/2024 10:24 AM J2EE CONSULTANT): Chronic condition, controlled.GERD education discussed. Avoid eating 2- 3 hours prior to bedtime. Sleep with HOB up to prevent heartburn. Avoid foods/drinks that trigger reflex like spicy/acidic foods, soda, coffee. . Discussed trailing off PPI after taking for 6-8 weeks and reassess symptoms. If improved may only need as needed tums or Famotide 20mg once or twice day. Chronic lumbar pain 01/12/2014 Osteoarthrosis 09/04/2013 Osteoporosis 09/04/2013 Overview (06/09/2024): DEXA scan 09/03/23 WHO Classification: osteoporosis. 4.5% interval decrease in bone mineral density of the left forearm from 2020 comparison. FRAX: None calculated as bilateral hip density cannot be assessed due to surgical hardware. On Reclast Assessment & Plan (06/09/2024 10:24 AM J2EE CONSULTANT): Chronic condition. Resume Reclast yearly and will repeat DEXA in 2 years (2025) Encourage calcium and vitamin D supplementation, weight bearing exercise pt can tolerate Hepatitis C virus 08/14/2013 Irritable bowel syndrome 04/07/2013 Cervical radiculopathy 07/08/2012 Chronic hepatitis C virus infection ([facility] HHS /HCC) 10/29/2010 Overview (08/20/2020): Overview: Description: Chronic Hepatitis, C Virus Overview: Description: Chronic Hepatitis, C Virus Chronic hepatitis C virus infection ([facility] HHS /HCC) 10/29/2010 Overview (12/09/2020): Description: Chronic Hepatitis, C Virus Description: Chronic Hepatitis, C Virus Resolved Problems Problem Noted Date Diagnosed Date Resolved Date Screening for colon cancer 08/25/2024 0 09/01/2024 Screening for colon cancer 01/28/2024 0 02/04/2024 Screening for colon cancer 01/28/2024 1 COPD exacerbation ([facility]) 11/18/2021 06/09/2024 DM type 2 with diabetic mixe d hyperlipidemia ([facility]) 04/07/2021 06/09/2024 Overview (06/08/2022): Last Assessment & Plan: Condition: stable Discussed glucose control targets. 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 6 06/09/2024 Overview (12/09/2020): Transitioned From: Hardware failure Dental infection 08/02/2015 06/09/2024 Non-healing ulcer ([facility]) 04/13/2015 06/09/2024 Hyperglycemia 02/16/2015 06/09/2024 Chronic sinusitis 07/27/2014 06/09/2024 Current smoker 12/26/2012 11/18/2021 Chronic obstructive pulmonar y disease ([facility]) 05/21/2012 06/09/2024 Encounter for preventive health examination 02/07/2012 03/12/2020 Encounters Date Type Department Care Team Description 10/29/2024 Scan [facility] Scanned, Doc [facility] 10/27/[address] [place] [address] Carmen Padron NP Medication Request 10/21/2024 Telephone [facility] - [address], [address] [place] [phone] Lisa Maldonado MD Medication 10/20/2024 10:00 AM CDT Treatment [facility] [place] [address] Carmen Padron NP 10/20/2024 Travel 10/06/2024 Telephone [facility] - [address] [place] [address] Lisa Maldonado MD Medication 09/25/2024 Telephone [place] [address] [place] [address] Carmen Padron NP Orders 09/24/2024 Scan [facility] Scanned, Doc [facility] 09/23/2024 Telephone [facility] [address], [address] [place] [address] Lisa Maldonado MD Results 09/23/2024 Orders Only [facility] [place] [address] Carmen Padron NP 09/22/2024 Therapy Plan [address] [place] [address] Carmen Padron NP 09/22/2024 Therapy Plan [address] [place] [address] Carmen Padron NP 09/19/[address] [place] [address] Carmen Padron NP Orders 09/15/2024 10:06 AM CDT - 09/15/2024 11:59 PM CDT Hospital Encounter [facility] [address] [place] [address] Lisa Maldonado MD Discharge Disposition: Home or Self Care (Routine Discharge) 09/15/2024 Travel 09/03/2024 Orders Only [address] [place] [address] Carmen Padron NP 08/25/2024 [facility]phone [facility] [address] [facility] [place] [address] Cm Klein MD Schedule Procedure 08/25/2024 [facility]phone [facility] [address] [place] [address] Cm Klein MD Schedule Procedure 08/24/2024 Orders Only [facility] Family [facility] - [place] [address] [place] [address] Carmen Padron, TESSA from Last 3 Months Immunizations Immunization Administration Dates Next Due Arexvy Respiratory Syncytial Virus (RSV, adjuvanted) 0.5 mL, PF 09/01/2023 Fluzone High Dose (IIV, triv alent, 0.5mL) 05/05/2024 Fluzone High Dose - >Age 65 (Prefilled Syringe) 05/10/2023,04/14/2022,04/30/2019 Influenza (Generic) 03/16/2017, 6,04/01/2013,2011 Influenza Adult (Generic) 04/11/2021,07/2019,04/30/2019,2017,03/16/2017,04/13/2016,04/13/2016,1 ,03/10/2015,03/10/2015, 014,04/01/2013 MODERNA COVID-19 BIVALENT (1 2+), MRNA, LNP-S, PF 11/08/2022,04/01/2022 MODERNA COVID-19 (12+) MRNA, LNP-S, PF, 100 MCG/ 0.5 ML DOSE 09/21/2020,08/11/2020 MODERNA COVID-19 ([employer] DIONICIO ANGELLA), MRNA, LNP-S, PF, 50 MCG/ 0.25 ML DOSE 10/01/2021,04/23/2021 Pneumococcal (Generic) 12/14/2014 Pneumococcal (Prevnar 13) 04/17/2018 Pneumococcal(Ppv 23)Aka Pneumovax 04/23/2021 Tdap (Generic) 12/14/2012 Zoster (Zostavax) 41862 Unt/0.65Ml 04/01/2013 Family History Medical History Relation Comments Cancer Brother 1 colon cancer wit h mets to liver Cancer- mets to liver Brother 1 Colon Cancer Brother 1 Cancer Father lung cancer Lung Cancer Father Cancer Mother lung cancer Lung Cancer Mother Diabetes Sister 1 Diabetes Sister 2 Relation Status Comments Brother 1 (Age 59) Brother 2 (Age 20) Daughter 1 Alive Daughter 2 Alive Daughter 3 Alive Father (Age 67) Mother (Age 57) of respir atory problems, lung cancer Sister 1 Alive Sister 2 Alive Son 1 Alive Son 2 Alive Son 3 Alive Son 4 Alive Social History Tobacco Use Types Packs/Day Years Used Date Smoking Tobacco: Former Cigarettes 1 30 0 07/02/1987 - 07/02/2017 Passive Smoke Exposure: Past Smokeless Tobacco: Never Tobacco Cessation:Counseling Given: Yes Alcohol Use Standard Drinks/Week Comments Never 0 (1 standard drink = 0.6 oz pur e alcohol) stopped years ago [facility] [employer] Answer Date Recorded In the past 12 months has e electric, gas, oil, or water company threatened to shut off services in your home? No 06/11/2024 Humiliation, Afraid, Rape, and Kick questionnair e Answer Date Recorded Within the last year, have y ou been afraid of your partner or ex-partner? No 06/11/2024 Within the last year, have y ou been humiliated or emotionally abused in other ways by your partner or ex-partner? No Within the last year, have y ou been kicked, hit, slapped, or otherwise physically hurt by your partner or ex-partner? No 06/11/2024 Within the last year, have y ou been raped or forced to have any kind of sexual activity by your partner or ex-partner? No 06/11/2024 AUDIT-C Answer Date Recorded Frequency of Alcohol Consumption Never 08/09/2018 Average Number of Drinks Not on file 019 Frequency of Binge Drinking Not on file 01/2019 Overall Financial Resource Strain (CARDIA) Answe r Date Recorded How hard is it for you to pa y for the very basics like food, housing, medical care, and heating? Not very hard 06/11/2024 PHQ-2 Answer Date Recorded Patient Health Questionnaire-2 Score 0 01/28/2024 Hunger Vital Sign Answer Date Recorded Within the past 12 months, y ou worried that your food would run out before you got the money to buy more. Never true 06/11/20 24 Within the past 12 months, t he food you bought just didn't last and you didn't have money to get more. Never true 06/11/2024 PRAPARE - Transportation Answer Date Re corded In the past 12 months, has l ack of transportation kept you from medical appointments or from getting medications? No 06/01 In the past 12 months, has l ack of transportation kept you from meetings, work, or from getting things needed for daily living? No 06/11/2024 Housing Stability Vital Sign Answer Kris e Recorded In the last 12 months, was t here a time when you were not able to pay the mortgage or rent on time? No 06/11/2024 In the past 12 months, how m any times have you moved where you were living? 0 06/11/2024 At any time in the past 12 m [facility], were you homeless or living in a fpc (including now)? No 06/11/2024 Sex and Gender Information Value Date Recorded Sex Assigned at Male 08/18/2024 7:33 AM J2EE CONSULTANT Legal Sex Male 4:05 PM CDT Gender Identity Male 04/22/2021 11:15 AM CDT Sexual Orientation Straight 04/22/2021 11 :15 AM CDT Occupation Industry Job Start Date Job End Date Not on file Not on file Not on file Not on file Last Filed Vital Signs Vital Sign Reading Time Taken Comments Blood Pressure 130/79 10/20/2024 9:56 AM CDT Pulse 93 10/20/2024 9:56 AM CDT Temperature 36.6 C (97.8 F) 10/20/2024 9:56 AM CDT Respiratory Rate 20 10/20/2024 9:56 AM CDT Oxygen Saturation 96% 10/20/2024 9:56 AM CDT Inhaled Oxygen Concentration - - Weight 66.7 kg (147 lb) 10/20/2024 9:49 AM CDT Height 175.3 cm (5' 9 ) 10/20/2024 9:49 AM CDT Body Mass Index 21.71 10/20/2024 9:49 AM CDT Plan of Treatment Upcoming Encounters Date Type Department Care Team (Latest Contact Info) Description 12/05/2024 12:00 PM CDT Office Visit [facility] [address] [address] Daniel Vides MD [address] [facility] [address] [place] [phone] 12/25/2024 9:40 AM CDT Office Visit [facility] - [facility] [address] [facility], [address] [place] [phone] Lisa Maldonado MD 3 [facility] [address] [place] [address] 03/23/2025 7:30 AM CDT Hospital Encounter [facility] [place] [address] Cm Klein MD [address] [address] 03/23/2025 7:30 AM CDT - 03/23/2025 8:00 AM CDT Surgery [facility] End[place] [address] Cm Klein MD [address] [address] COLONOSCOPY Scheduled Procedures Name Priority Associated Diagnoses Date/Ti me COLONOSCOPY Hx of colonic polyps Family hx of colon cancer Screening for colon cancer 03/23/2025 7:30 AM CDT Health Maintenance Due Date Last Done Comments Kidney Health Evaluation 1950 Zoster Vaccines (2 of 3) 05/27/2013 04/01/2013 Annual Medicare Wellness Visit 2014 DTaP, Tdap and Td Vaccines (2 - Td or Tdap) 12/14/2022 12/14/2012 COVID-19 Vaccine (8 - 2024-25 season) 2024 05/16/2023, 11/08/2022, 04/01/2022, Additional history exists PHQ-2 (Phys[place]) 07/02/2024 01/28/2024 ASCVD LDL 08/02/2024 08/02/2023, 10/01, 06/14/2022, Additional history exists Lipid Panel 08/02/2024 08/02/2023, 10/01, 06/14/2022, Additional history exists Hemoglobin A1C 12/08/2024 06/09/2024, 1103/2023, 10/27/2022, Additional history exists Lung Cancer Screening 09/15/2025 09/15/2024 , 09/13/2023, 09/08/2022, Additional history exists Diabetes: Retinopathy Eye Exam 01/10/2026 01/11/2024 Colorectal Cancer Screening Colonoscopy (10 Years) 04/14/2034 04/14/2024, 01/21/2021, 01/21/2021 Pneumococcal Vaccine: 50+ Years Completed 04/23/2021, 04/17/2018 Hepatitis C Completed 06/12/2022, 08/02, 01/13/2015, Additional history exists AAA SCREENING Completed 05/31/2023, 12/01, 06/16/2022, Additional history exists RSV Immunization or 60+ Years Completed 09/01/2023 Meningococcal B Vaccine Aged Out No l onger eligible based on patient's age to complete this topic Meningococcal Vaccine Aged Out No alek lacie eligible based on patient's age to complete this topic RSV Immunizations Under 20 Months Aged Out No longer eligible based on patient's age to complete this topic Goals Goal Patient Goal Type Associated Problems Recent Progress Patient-Stated? Author Safety - demonstrates understanding of home safety measures General No Lauren Mckeon RN Health - patient able to perform ADLs independently Lifestyle No Dieter Hammonds RN Health - patient able to perform ADLs independently Lifestyle No Radha Gonsalez CHERRY GROWER Autogenerated Goal Care Plan Autogenerated Problem No Jeanie Yao RN Medical Devices Implanted Type Area Site Supervisor Device Identifier Shelf Expiration Date Model / Serial / Lot Actis Femoral Stem, 06/14 Taper Duo Fix Hip Prosthesis Size 7 Implanted:Qty : 1 on 12/12/2020 by Adalberto Goodson MD at [facility] Hip Components Left: Hip DEPUY SYNTHES [id number] 08/29/2030 1010-11-070 / / [id number] Head Depuy Self Centering Bi Polar 51 X 28 - [id number] Implanted:Qty : 1 on 12/12/2020 by Adalberto Goodson MD at [facility] Hip Components Left: Hip DEPUY [id number] 05/01/2025 [id number] / / [id number] Mesh Bard Marlex 3 X 6 [id number] - [id number] Implanted:Qty : 1 on 07/27/2022 by Adalberto Richardson MD at [facility] Mesh Right: Groin [employer] - [employer] [id number] 10/27/2026 [id number] / / [id number] Head Depuy Femoral Articuleze 28mm +8.5 - [id number] Implanted:Qty : 1 on 12/12/2020 by Adalberto Goodson MD at [facility] Left: Hip DEPUY [id number] 09/29/2024 [id number] / / [id number] Urolift Implanted:Qty : 2 on 08/05/2021 by Jeremy Bains MD at [facility] [id number] 03/09/2023 / / [id number] Procedures Procedure Name Priority Date/Time Associated Diagnosis Comments CT LUNG SCREENING Routine 09/15/2024 10: 37 AM CDT Nicotine dependence, cigarettes, in remission HEMOGLOBIN, GLYCOSYLATED Routine 06/09/2024 Prediabetes DIABETIC RETINOPATHY EXAM (NEGATIVE)(SCAN ORDER) Routine 01/11/2024 LIPID PANEL Routine 08/02/2023 8:40 AM J2EE CONSULTANT Coronary artery calcification seen on CAT scan Hypercholesterolemia Pulmonary emphysema, unspecified emphysema type US TESTICULAR W DOPPLER Routine 05/31/2023 12:01 PM J2EE CONSULTANT Pain in right testicle COLONOSCOPY Routine 01/21/2021 12:16 PM CDT from Last 3 Months or Most Recently Relevant to Health Maintenance Results * CT LUNG SCREENING (09/15/2024 10:37 AM CDT) Anatomical Region Laterality Modality Chest Computed Tomogra phy 09/23/2024 2:35 PM CDT Impressions 09/23/2024 2:57 PM CDT =====Impression:===== LUNG-RADS Category/Recommendation: Category 3. Multiple new nodules, largest measuring 6 mm. Short interval follow-up low-dose chest CT is recommended in 6 months. Suggest follow up exam on or around 03/18/2025 . LUNG-RADS category S: Negative, no new/unknown potentially significant incidental findings requiring urgent additional evaluation. Other Incidental Findings: As above. Ordered By: LISA MALDONADO Interpreted By: Herber Devine MD, 09/23/2024 2:35 PM Narrative 09/23/2024 2:57 PM CDT [address] [address] Examination: Lung Screening Low-Dose Ct Thorax Without Contrast Exam date/time: 09/15/2024 10:28 AM Clinical history: Asymptomatic patient meeting NCCN high-risk criteria for lung screening. * 74 years * 30 pack years or greater * Current smoker of have quit smoking within the last 15 years. Comparison: 09/13/2023 Technique: Noncontrast, helical, low-dose CT (LDCT) chest per standard departmental protocol. A dose lowering technique was used for this procedure, which may include, but is not limited to, dose reduction technique, automated exposure control, the use of iterative reconstruction, and ALARA (As Low As Reasonably Achievable) / Image Gently techniques. FINDINGS: Lung Screening Specific (LUNG-RADS): -Right lower lobe solid nodule measuring 5.5 mm, new (image 108). -Right lower lobe groundglass nodule measuring 4 mm, new (image 107). -Right upper lobe solid nodule measuring 5 mm, new (image 74). -Right upper lobe solid nodule measuring 4 mm, new (image 62). -Left upper lobe solid nodule measuring 5 mm, new (image 49). -Left upper lobe solid nodule measuring 5 mm, new (image 87). -Additional scattered tiny nodules elsewhere. Potentially Significant Incidentals (LUNG-RADS category S): None. Additional Findings: Chronic severe emphysema with associated hyperinflation. Associated chronic bronchitis with diffuse peribronchial thickening. Minimal atelectasis and scarring. Moderate coronary artery calcifications. Mild aortic atherosclerosis. Additional scattered vascular calcifications elsewhere. Chronic ectasia of the ascending thoracic aorta without significant aneurysmal dilatation. Bovine aortic arch variant. Mild retained secretions in the trachea. No suspicious adenopathy. Prior cholecystectomy. Diffuse degenerative changes. Bones are somewhat osteopenic. Old healed rib fractures. Mild scoliosis. Procedure Note Chataignier, Herber Woodson MD - 09/23/2024 [id number] [place] [address] Examination: Lung Screening Low-Dose Ct Thorax Without Contrast Exam date/time: 09/15/2024 10:28 AM Clinical history: Asymptomatic patient meeting NCCN high-risk criteria forlung screening. * 74 years * 30 pack years or greater * Current smoker of have quit smoking within the last 15 years. Comparison: 09/13/2023 Technique: Noncontrast, helical, low-dose CT (LDCT) chest per standarddepartmental protocol. A dose lowering technique was used for thisprocedure, which may include, but is not limited to, dose reductiontechnique, automated exposure control, the use of iterativereconstruction, and ALARA (As Low As Reasonably Achievable) / Image Gentlytechniques. FINDINGS: Lung Screening Specific (LUNG-RADS): -Right lower lobe solid nodule measuring 5.5 mm, new (image 108). -Right lower lobe groundglass nodule measuring 4 mm, new (image 107). -Right upper lobe solid nodule measuring 5 mm, new (image 74). -Right upper lobe solid nodule measuring 4 mm, new (image 62). -Left upper lobe solid nodule measuring 5 mm, new (image 49). -Left upper lobe solid nodule measuring 5 mm, new (image 87). -Additional scattered tiny nodules elsewhere. Potentially Significant Incidentals (LUNG-RADS category S): None. Additional Findings: Chronic severe emphysema with associatedhyperinflation. Associated chronic bronchitis with diffuse peribronchialthickening. Minimal atelectasis and scarring. Moderate coronary arterycalcifications. Mild aortic atherosclerosis. Additional scattered vascularcalcifications elsewhere. Chronic ectasia of the ascending thoracic aortawithout significant aneurysmal dilatation. Bovine aortic arch variant.Mild retained secretions in the trachea. No suspicious adenopathy. Priorcholecystectomy. Diffuse degenerative changes. Bones are somewhatosteopenic. Old healed rib fractures. Mild scoliosis. =====Impression:===== LUNG-RADS Category/Recommendation: Category 3. Multiple new nodules,largest measuring 6 mm. Short interval follow-up low-dose chest CT isrecommended in 6 months. Suggest follow up exam on or around 03/18/2025. LUNG-RADS category S: Negative, no new/unknown potentially significantincidental findings requiring urgent additional evaluation. Other Incidental Findings: As above. Ordered By: LISA MALDONADO Interpreted By: Herber Devine MD, 09/23/2024 2:35 PM Lisa Maldonado MD CT Final Result * A1C (BACK OFFICE) (06/09/2024) HGB A1C 5.8 % [address], [place] 06/09/2024 Carmen Padron NP LABORATORY Final Res ult [address], [place] [address] [place] [address], [place] [phone] * DIABETIC RETINOPATHY EXAM (NEGATIVE) (01/11/2024) [facility] Scanned SCANNING Final Resu lt [facility] ONBASE * LIPID PANEL (08/02/2023 8:40 AM J2EE CONSULTANT) CHOLESTEROL 126 <200 MG/DL 08/02/2023 9:50 AM J2EE CONSULTANT [facility] TRIGLYCERIDES 43 <150 MG/DL 08/02/2023 9:50 AM J2EE CONSULTANT [facility] HDL 64 >40.0 MG/DL 08/02/2023 9:50 AM [facility] LDL (CALCULATED) 53 <100 MG/DL 08/02/19 9:50 AM J2EE CONSULTANT [facility] NON HDL CHOLESTEROL 62 <130 MG/DL 08/02 9:50 AM [facility] CHOL/HDL RATIO 2.0 0.0 - 4.5 08/02/2023 9:50 AM [facility] VLDL CALCULATION 9 5 - 55 MG/DL 08/02/2023 9:50 AM [facility] LIPID INTERPRETATION 08/02/2023 9:50 AM [facility] Comment: [facility] CONCENSUS REPORT RECOMMENDATIONS: ADULT CHILD LOW RISK: CHOLESTEROL <200 <170 TRIGLYCERIDE <150 --- HDL >=60 --- LDL <100 <110 BORDERLINE: CHOLESTEROL 200-239 170-199 TRIGLYCERIDE 150-199 --- HDL 40-59 --- LDL 100-159 110-129 HIGH RISK: CHOLESTEROL >=240 >=200 TRIGLYCERIDE >=200 --- HDL <40 --- LDL >=160 >=130 08/02/2023 8:40 AM J2EE CONSULTANT us Daniel Vides MD LABORATORY Final Result [id number]|2024-11-16 13:25:00|2024-11-16 13:25:00|ED_ITS|[facility]|Health Information Management|[id number]|"HPI - Eye Problem General Chief complaint: Eye Problems Stated complaint: something in eye Time Seen by Provider: 11/16/24 13:25 Source: patient Mode of arrival: ambulatory Limitations: no limitations History of Present Illness HPI Narrative: Alex is a 74-year-old female patient presenting to the clinic today with complaints of a possible foreign body in his left eye. He reports he was sitting down eating lunch when he felt like something got into his left upper medial eyelid. States the eye is watering. Has attempted using some eyedrops to help irrigate the eye without relief. He denies any visual changes Related Data Home Medications Medication Instructions Recorded Confirmed Last Taken Type finasteride 5 mg tablet 5 mg PO DAILY 12/24/19 03/07/24 12/17/20 History fluticasone propionate 50 1 spray intranasal Q6H PRN 12/24/19 03/07/24 Unknown History mcg/actuation nasal Shortness Of Breath Or Wheezing spray,suspension (Flonase Allergy Relief) loratadine 10 mg tablet (Claritin) 10 mg PO DAILY 12/24/19 03/07/24 Unknown History metformin 500 mg tablet 500 mg PO BID 12/24/19 03/07/24 Unknown History (Glucophage) rosuvastatin 5 mg tablet (Crestor) 5 mg PO HS 12/24/19 03/07/24 Unknown History tamsulosin 0.4 mg capsule (Flomax) 0.4 mg PO DAILY 12/24/19 03/07/24 12/17/20 History albuterol sulfate 2.5 mg/3 mL 2.5 mg inhalation Q4H PRN 12/17/20 03/07/24 Unknown History (0.083 %) solution for nebulization shortness of breath or wheezing albuterol sulfate 90 mcg/actuation 1 inh inhalation Q4-6H PRN 12/17/20 03/07/24 Unknown History aerosol inhaler shortness of breath or wheezing aspirin 81 mg tablet,delayed 81 mg PO DAILY 12/17/20 03/07/24 12/17/20 History release nitroglycerin 0.4 mg sublingual 0.4 mg sublingual Q5-15M PRN Chest 12/17/20 03/07/24 Unknown History tablet Pain Allergies Allergy/AdvReac Type Severity Reaction Status Date / Time sulfamethoxazole (From Allergy Mild Hives Verified 11/16/24 14:08 Bactrim) tetracycline Allergy Mild Hives Verified 11/16/24 14:08 trimethoprim (From Bactrim) Allergy Mild Hives Verified 11/16/24 14:08 Review of Systems Review of Systems: Pertinent positives per HPI. Patient denies any fever, chills, rash, headache, visual changes, dizziness, cough, shortness of breath, chest pain, palpitations, nausea, vomiting, diarrhea, constipation, abdominal pain, or any urinary issues. [facility] Past Medical History Medical History Hyperlipidemia History of pneumonia History of hepatitis C Basal cell adenoma Chronic respiratory failure Body mass index (bmi) 25.0-25.9, adult (02/13/18) Nocturnal hypoxemia Osteoarthritis Hip fracture, right Peptic ulcer disease Hepatitis C Diabetes mellitus, type II Self-catheterizes urinary bladder Hx of skin malignancy removed on his nose BPH (benign prostatic hyperplasia) COPD (chronic obstructive pulmonary disease) Emphysema lung History of tobacco abuse Surgical History Surgical History History of total right hip replacement History of hip surgery right History of back surgery 1998 Hx of cholecystectomy Family History Family History Sibling Carcinoma of colon Diabetes mellitus Father Family history of lung cancer Mother Family history of emphysema Social History Social History Social History: patient lives alone in a mobile home with 5 steps to enter. He has a 2 wheeled walker, straight cane, and manual wheelchair. Patient still drives and is independent with bathing and dressing. Patient's sister and [id number] lives nearby and can provide assistance. Patient has elected his sister Sruthi Jacobs at [phone] as his surrogate and wishes to be a full code. He also stated that he has three dogs and his sister lives next door to him. Smoking packs per day: 1 Smoking cigarettes per day: 20.0 Years smoked: 30 Smoking pack-years: 30.00 Smoking status: Former smoker Tobacco type: cigarettes Second hand tobacco smoke exposure: No Alcohol intake: never Substance use: never Substance use type: does not use Living arrangements: alone Additional living arrangements comments: His sister lives next door. Occupation/Education: retired Gender identity (if verbalized by the patient): Male Spiritual care concerns: No Agree to blood products: Yes Comments At the time of my signature, I reviewed and agree with the nursing past medical, surgical, social, and family history. There is no relevant family history pertinent to the patient complaint. Exam Narrative: General: Well-developed, well nourished, in no apparent distress Head: Normocephalic, atraumatic Eyes: Pupils equally round and reactive to light bilaterally, EOM intact, left sclera and conjunctive injected, clear watery discharge to the left eye, lids normal, no obvious foreign body was visualized, Wood's lamp exam was performed and there was no sign of corneal abrasion or globe trauma, sterile wet cotton- tipped applicators used and removed a small foreign body from the left lower eyelid. Ears: TMs intact and clear, ear canals clear, no drainage, grossly hearing normal. Nose: Nares patent, no discharge, no inflammation, no sinus tenderness. Mouth: Oral pharynx without lesions or masses, good dentition, MMM. Neck: Supple, trachea midline, no enlargement of anterior or posterior cervical nodes, no thyroid masses or goiter palpable. Cardio: Regular rate and rhythm, s1 and s2 normal, no murmur appreciated. Resp: Clear to auscultation bilaterally, no rhonchi, rales, wheezing or rubs Course Course Emergency Course: Portions of this record may have been created with voice recognition software. Level of Care: Express Care Visit Vital Signs Vital signs: Vital Signs Temperature 36.7 C 11/16/24 13:38 Pulse Rate 106 H 11/16/24 13:38 Respiratory Rate 20 11/16/24 13:38 Blood Pressure 134/82 11/16/24 13:38 Pulse Oximetry 95 11/16/24 13:38 Oxygen Delivery Nasal Cannula 11/16/24 13:38 Oxygen Flow Rate 3 11/16/24 13:38 Temperature 36.7 C 11/16/24 13:38 Pulse Rate 106 H 11/16/24 13:38 Respiratory Rate 20 11/16/24 13:38 Blood Pressure 134/82 11/16/24 13:38 Pulse Oximetry 95 11/16/24 13:38 Oxygen Delivery Nasal Cannula 11/16/24 13:38 Oxygen Flow Rate 3 11/16/24 13:38 Vital signs reviewed Procedures FB Removal Eye Foreign Body #1: Foreign Body Removal Date: 11/16/24 Location: eye (L) Topical anesthetic used: tetracaine Foreign body: other (Unknown foreign body) Evidence of corneal penetration: No Technique: irrigation, NS and cotton tip swab Procedure performed under: direct visualization with magnification Patient tolerated procedure: well and no complications Foreign Body Removal Narrative: Topical anesthetic was instilled with good anesthesia using 1gtt of opth anesthetic agent (tetracaine). Fluorescein stain of the left eye was performed without uptake of dye. No epithelial defect was noted. No ulcer or dendritic lesions. Upper lid was everted and no FB or lesions were noted. NO Nando sign. Normal saline irrigation eye solution was performed and the patient tolerated the procedure well, sterile wet cotton-tipped applicator was used and small foreign body was seen on the applicator after swabbing the left lower eyelid, no adverse reaction or complications. Noted intraocular pressure readings. MDM - Eye Problem MDM Narrative Medical decision making narrative: At the time of visit patient is resting comfortably on the exam table. Patient appears to be nontoxic. Procedure: Wood's lamp exam was performed in the was no sign of corneal abrasion or globe rupture. No obvious sign of foreign body. Eye was irrigated and sterile wet got back rotators were used to swab the lower eyelid in the upper eyelid and a small foreign body was on the caught tip applicator after swabbing the lower eyelid Plan: I suspect patient possibly had a foreign body in the left eye. Does have eye irritation. Reports symptoms have improved after numbing medication and irrigation. Supportive measures were discussed with the patient and they voiced understanding discharge instructions and agrees to treatment plan. Return precautions reviewed Differential Diagnosis Differential diagnosis: Likely corneal abrasion, conjunctivitis, acute iritis, hyphema, periorbital cellulitis, subconjunctival hemorrhage, glaucoma, corneal ulcer, ruptured globe and other (Eye irritation, foreign body in the left eye) Discharge Plan Discharge Clinical Impression: Eye irritation, Foreign body sensation, left eye Patient Disposition: Home Condition: Stable Instructions: Antibiotic Form, Eye Foreign Body (ED), Eye Pain (ED) Additional Instructions: Wood's lamp exam was performed and there is no sign of corneal abrasion or globe rupture Eye was irrigated and Q-tips were used to try to remove any foreign body-a very small speck of dirt was removed May use saline irrigation as needed Follow-up with your eye doctor as needed Patient Language: Congolese Prescriptions: No Action ciprofloxacin HCl 500 mg tablet 500 mg PO BID 10 Days Qty: 20 0RF metformin [Glucophage] 500 mg Tablet 500 mg PO BID tamsulosin [Flomax] 0.4 mg Capsule 0.4 mg PO DAILY fluticasone propionate [Flonase Allergy Relief] 50 mcg/actuation [place],Suspension 1 spray INTRANASAL Q6H PRN (Reason: Shortness Of Breath Or Wheezing) finasteride 5 mg Tablet 5 mg PO DAILY loratadine [Claritin] 10 mg Tablet 10 mg PO DAILY rosuvastatin [Crestor] 5 mg Tablet 5 mg PO HS aspirin 81 mg Tablet,Delayed Release (Dr/Ec) 81 mg PO DAILY nitroglycerin 0.4 mg Tablet, Sublingual 0.4 mg SUBLINGUAL Q5-15M PRN (Reason: Chest Pain) albuterol sulfate 2.5 mg /3 mL (0.083 %) solution for nebulization 2.5 mg INHALATION Q4H PRN (Reason: shortness of breath or wheezing) Rx Instructions: Take 3mls by nebulizer every 4 hours albuterol sulfate 90 mcg/actuation HFA aerosol inhaler 1 inh INHALATION Q4-6H PRN (Reason: shortness of breath or wheezing) polyethylene glycol 3350 [Miralax] 17 gram Powder In Packet 17 g PO QAM Qty: 30 0RF guaifenesin [Mucus Relief ER] 600 mg Tablet Extended Release 12hr 1,200 mg PO Q12HR Qty: 60 0RF enoxaparin [Lovenox] 40 mg/0.4 mL Syringe 40 mg SUBCUT DAILY Qty: 7 0RF Rx Instructions: for 19 days ipratropium bromide 0.02 % solution 2.5 ml INHALATION Q6H PRN (Reason: shortness of breath or wheezing) Qty: 300 5RF budesonide-formoterol [Symbicort] 160-4.5 mcg/actuation HFA aerosol inhaler See Rx Instructions .ROUTE .COMPLEX Qty: 10.2 5RF Dose Instruction: INHALE 2 PUFFS EVERY 12 HOURS. RINSE AND SPIT AFTER USE WITH SPACER Rx Instructions: INHALE 2 PUFFS DAILY Follow-up/Referrals: Nereida,VAIBHAV Villalobos [Primary Care Provider] - Time of Disposition: 13:57 Quality NIHSS Nursing Documentation ED NIHSS nursing documentation: reviewed/agree "
[2024-11-16 13:38] VITALS: BP 134/82; PULSE 106; RESP 20; TEMP 36.7; O2SAT 95
== END 2024-11-16 14:00 | disposition home or self-care (01) ==
PROVIDERS: Emergency Provider Nurse Practitioner Family; PCP Nurse Practitioner
DX: H57.12 Ocular pain, left eye (principal); H57.8A2 Foreign body sensation, left eye; Z87.891 Personal history of nicotine dependence; E78.5 Hyperlipidemia, unspecified; M19.90 Unspecified osteoarthritis, unspecified site; E11.9 Type 2 diabetes mellitus without complications; N40.0 Benign prostatic hyperplasia without lower urinary tract symptoms; J44.9 Chronic obstructive pulmonary disease, unspecified; Z85.828 Personal history of other malignant neoplasm of skin; K27.9 Peptic ulcer, site unspecified, unspecified as acute or chronic, without hemorrhage or perforation; Z96.641 Presence of right artificial hip joint
CPT/HCPCS: 99213; A9270; G0463